=== PATIENT | male | born 1975 | race Caucasian/White ===

== ENCOUNTER 2019-08-29 18:07 | Inpatient (IN) | payer OTHER ==
[~2019-08-29] VITALS: Ht 157.5 cm; Wt 162.3 kg
[~2019-08-29 18:07] MED LIST: AMLO5 PO; DOXY100 PO; Gummi Bear Mul1 EACH PO; LEVSOD150 PO; Omega 3 Fish O1 EACH PO
[2019-08-29] MEDS ORDERED: Clobetasol Prop50 ML (18:31)
[2019-08-29] MEDS ORDERED: METR59TL (18:31)
[2019-08-29] MEDS ORDERED: KRILL OIL500 MG (18:32)
[2019-08-29] MEDS ORDERED: Aspirin EC81 MG PO (18:32)
[2019-08-29] MEDS ORDERED: ATORVASTATIN CA20 MG PO (18:33)
[2019-08-29] MEDS ORDERED: Bisoprolol Fumar5 MG PO (18:34)
[2019-08-29] MEDS ORDERED: Spironolactone100 MG PO (18:34)
[2019-08-29] MEDS ORDERED: TORSE20 PO (18:35)
[2019-08-29 19:41] LABS: BASOPHILS ABSOLUTE AUTO 0.09 K/mm3 (0.00-0.23); BASOPHILS PERCENT AUTO 1 % (0-2); EOSINOPHILS ABSOLUTE AUTO 0.13 K/mm3 (0.00-0.68); EOSINOPHILS PERCENT AUTO 1 % (0-6); Hematocrit 51.3 % (37.0-53.0); Hemoglobin 16.6 g/dL (13.5-17.5); IMMATURE GRAN ABSOLUTE AUTO 0.06 K/mm3 (0.00-0.10); IMMATURE GRAN PERCENT AUTO 1 % (0-1); LYMPHOCYTES ABSOLUTE AUTO 3.67 K/mm3 (0.84-5.20); LYMPHOCYTES PERCENT AUTO 36 % (21-46); MONOCYTES ABSOLUTE AUTO 0.88 K/mm3 (0.16-1.47); MONOCYTES PERCENT AUTO 9 % (4-13); Mean Corpuscular HGB 30.9 pg (26.0-34.0); Mean Corpuscular HGB Conc 32.4 g/dL (31.5-36.5); Mean Corpuscular Volume 95 fL (80-100); Mean Platelet Volume 9.2 fL (9.1-12.4); NEUTROPHILS PERCENT AUTO 53 % (41-73); Platelet Count 387 K/mm3 (150-400); RDW Coefficient Variation 15.4 % (11.7-14.2); RDW Standard Deviation 54.8 fL (35.1-46.3); Red Blood Cell Count 5.38 M/mm3 (4.30-5.90); White Blood Cell Count 10.33 K/mm3 (4.00-11.30)
[2019-08-29 20:10] LABS: Alanine Aminotransfer (ALT/SGP 35 U/L (12-78); Albumin, Blood 2.8 g/dL (3.4-5.0); Albumin/Globulin Ratio 0.6 (0.8-1.8); Alk Phos 91 U/L (50-136); Anion Gap 0 mmol/L (6-16); Aspartate Aminotrans (AST/SGOT 41 U/L (12-37); Bilirubin, Total 0.4 mg/dL (0.1-1.0); Blood Urea Nitrogen 23 mg/dL (8-24); Bun/Creatinine Ratio 16.2 (12.0-20.0); CO2, Blood 35 mmol/L (21-32); Calcium, Blood 8.7 mg/dL (8.5-10.1); Chloride, Blood 104 mmol/L (98-108); Creatinine, Blood 1.42 mg/dL (0.60-1.20); Globulin, Blood 4.9 g/dL (2.2-4.0); Glomerular Filtration Rate 58 (60-); Glucose, Blood 107 mg/dL (70-99); Magnesium, Blood 2.2 mg/dL (1.6-2.4); Potassium, Blood 4.6 mmol/L (3.5-5.5); Sodium, Blood 139 mmol/L (136-145); Total Protein, Blood 7.7 g/dL (6.4-8.2); Troponin I <0.015 ng/mL (0.000-0.040)
[2019-08-29] MEDS ORDERED: AMLODIPINE BESYL5 MG PO (20:33)
[2019-08-29] MEDS ORDERED: METRONIDAZOLE60 GM TOP (20:37)
[2019-08-29] MEDS ORDERED: Clobetasol Prop50 ML TOP (20:37)
[2019-08-30 00:40] LABS: Adenovirus Not Detected (NOT DETECT); Bordetella pertussis Not Detected (NOT DETECT); Chlamydophila pneumoniae Not Detected (NOT DETECT); Coronavirus 229E Not Detected (NOT DETECT); Coronavirus HKU1 Not Detected (NOT DETECT); Coronavirus NL63 Not Detected (NOT DETECT); Coronavirus OC43 Not Detected (NOT DETECT); Human Metapneumovirus Not Detected (NOT DETECT); Human Rhinovirus/Enterovirus Not Detected (NOT DETECT); Influenza A/2009-H1 Not Detected (NOT DETECT); Influenza A/H1 Not Detected (NOT DETECT); Influenza A/H3 Not Detected (NOT DETECT); Influenza B Not Detected (NOT DETECT); Mycoplasma pneumoniae Not Detected (NOT DETECT); Parainfluenza Virus 1 Not Detected (NOT DETECT); Parainfluenza Virus 2 Not Detected (NOT DETECT); Parainfluenza Virus 3 Not Detected (NOT DETECT); Parainfluenza Virus 4 Not Detected (NOT DETECT); Respiratory Syncytial Virus Not Detected (NOT DETECT)
[2019-08-30 04:43] LABS: Hematocrit 51.7 % (37.0-53.0); Hemoglobin 16.9 g/dL (13.5-17.5); Mean Corpuscular HGB 30.9 pg (26.0-34.0); Mean Corpuscular HGB Conc 32.7 g/dL (31.5-36.5); Mean Corpuscular Volume 95 fL (80-100); Mean Platelet Volume 9.3 fL (9.1-12.4); Platelet Count 360 K/mm3 (150-400); RDW Coefficient Variation 15.2 % (11.7-14.2); RDW Standard Deviation 53.3 fL (35.1-46.3); Red Blood Cell Count 5.47 M/mm3 (4.30-5.90); White Blood Cell Count 10.35 K/mm3 (4.00-11.30)
[2019-08-30 05:07] LABS: Albumin, Blood 2.9 g/dL (3.4-5.0); Albumin/Globulin Ratio 0.6 (0.8-1.8); Bilirubin, Total 0.5 mg/dL (0.1-1.0); Bun/Creatinine Ratio 16.5 (12.0-20.0); Calcium, Blood 8.9 mg/dL (8.5-10.1); Creatinine, Blood 1.39 mg/dL (0.60-1.20); Globulin, Blood 5.1 g/dL (2.2-4.0); Potassium, Blood 4.9 mmol/L (3.5-5.5)
--- NOTE | 2019-08-30 06:04 | NUR ---
SHIFT SUMMARY PT ALERT; ARRIVED VIA STRETCHER FROM ER; TRANSFERED SELF TO BED; MOTHER AT BEDSIDE; COPY OF HOME MEDS IN CHART; MOTHER ABLE TO ANSWER ADMIT HX; PT IS DIFFICULT TO UNDERSTAND AT TIMES; PT AMBULATES TO BATHROOM W/ SBA; NO GAIT DISTURBANCES NOTED; O2 SATS >93 ON 2L NC; MOTHER STATES 2L IS BASELINE FOR PT; HOME CPAP USED FOR SLEEPING; RT ADDED 3L BLEED IN; DESATING NOTED WHEN PT IS SOUND ASLEEP; CALL LIGHT IN REACH; BED IN LOWEST POSITION; WILL MONITOR CLOSELY UNTIL HAND OFF TO DAY SHIFT RN.
--- NOTE | 2019-08-30 17:08 | NUR ---
SHIFT SUMMARY PT AWAKE THIS AM DURING SHIFT REPORT, LYING HF. PT'S MOM STAYING AT BS D/T PT BEING DOWN SYNDROME. PT IS ALERT AND VERY PLEASANT AND CO-OP. HX OF CHF WITH MORBID OBESITY, ADMITTED FOR RESP FAILURE. LUNGS T/O VERY DIMINISHED; DIFFICULT TO ACCURATELY ASSESS D/T OBESITY. BIOX HAS REMAINED WNL'S ON 2L NC TODAY, IMPROVING SLIGHTLY THRU OUT THE DAY. OCCASSIONAL NPC. TESSALON GIVEN PER EMAR FOR COUGH. PT VOIDING WELL; MOM ASSISTS PT UP TO BTHRM WITH SBA. TODAY IS PT'S BIRTHDAY; HAVING LOTS OF VISITORS. NO C/O. DENIED FURTHER NEEDS. CALL LT IN REACH.
[2019-08-31 04:59] LABS: BASOPHILS ABSOLUTE AUTO 0.01 K/mm3 (0.00-0.23); BASOPHILS PERCENT AUTO 0 % (0-2); EOSINOPHILS PERCENT AUTO 0 % (0-6); Hematocrit 48.3 % (37.0-53.0); Hemoglobin 16.1 g/dL (13.5-17.5); IMMATURE GRAN ABSOLUTE AUTO 0.09 K/mm3 (0.00-0.10); IMMATURE GRAN PERCENT AUTO 1 % (0-1); LYMPHOCYTES ABSOLUTE AUTO 2.05 K/mm3 (0.84-5.20); LYMPHOCYTES PERCENT AUTO 13 % (21-46); MONOCYTES ABSOLUTE AUTO 0.31 K/mm3 (0.16-1.47); MONOCYTES PERCENT AUTO 2 % (4-13); Mean Corpuscular HGB 31.1 pg (26.0-34.0); Mean Corpuscular HGB Conc 33.3 g/dL (31.5-36.5); Mean Corpuscular Volume 93 fL (80-100); Mean Platelet Volume 8.9 fL (9.1-12.4); NEUTROPHILS ABSOLUTE AUTO 13.66 K/mm3 (1.96-9.15); NEUTROPHILS PERCENT AUTO 85 % (41-73); Platelet Count 379 K/mm3 (150-400); RDW Coefficient Variation 14.7 % (11.7-14.2); RDW Standard Deviation 51.3 fL (35.1-46.3); Red Blood Cell Count 5.17 M/mm3 (4.30-5.90); White Blood Cell Count 16.12 K/mm3 (4.00-11.30)
[2019-08-31 05:16] LABS: Alanine Aminotransfer (ALT/SGP 30 U/L (12-78); Albumin, Blood 2.6 g/dL (3.4-5.0); Albumin/Globulin Ratio 0.5 (0.8-1.8); Alk Phos 69 U/L (50-136); Anion Gap 4 mmol/L (6-16); Aspartate Aminotrans (AST/SGOT 22 U/L (12-37); Bilirubin, Total 0.4 mg/dL (0.1-1.0); Blood Urea Nitrogen 28 mg/dL (8-24); Bun/Creatinine Ratio 23.7 (12.0-20.0); CO2, Blood 30 mmol/L (21-32); Calcium, Blood 8.8 mg/dL (8.5-10.1); Chloride, Blood 102 mmol/L (98-108); Creatinine, Blood 1.18 mg/dL (0.60-1.20); Globulin, Blood 4.9 g/dL (2.2-4.0); Glomerular Filtration Rate >60 (60-); Glucose, Blood 170 mg/dL (70-99); Magnesium, Blood 2.4 mg/dL (1.6-2.4); Potassium, Blood 4.6 mmol/L (3.5-5.5); Sodium, Blood 136 mmol/L (136-145); Total Protein, Blood 7.5 g/dL (6.4-8.2)
--- NOTE | 2019-08-31 06:54 | NUR ---
SHIFT SUMMARY PT A&O; PLEASANT AND COMPLIANT W/ CARE; MOTHER AT BEDSIDE; VSS; O2 SATS >90 ON 2L NC; LUNG SOUNDS DIM T/O; OCCASSIONAL COUGH NOTED; PT USED HOME CPAP FOR MAJORITY OF THE NIGHT AND SLEPT SEVERAL HOURS; SBA FOR BATHROOM PRIVILEGES; NO OUTPUT NOTED FOR NIGHT; WT GAIN NOTED THIS AM; DENIES NEEDS AT THIS TIME; CALL LIGHT IN REACH; BED IN LOWEST POSITION; WILL CONTINUE TO MONITOR UNTIL HAND OFF TO DAY SHIFT RN.
--- NOTE | 2019-08-31 19:49 | NUR ---
SHIFT SUMMARY: PT TRANSITION TO MEDICAL STATUS WITH NO TELE, PT COMPLIANT WITH CPAP ON 3L SATS ABOVE 88-90% PT NOT IN RESPI DISTRESS. PT REQUIRING CUES AND SIGNS FOR COMMUNICATION. BP SYSTOLIC 90'S-100'S METOPROLOL HELD THIS AM, BP HAS BEEN STABLE DR ZAIDI IS AWARE. ONE TIME EXTRA DOSE OF LASIX ADMINISTERED, PT WITH DECENT AMOUNT OF URINE OUTPUT. MOTHER AT BEDSIDE MOST OF THE SHIFT. PT HAS BEEN AMBULATING TO THE BATHROOM. LUNGS WITH BILAT EXP WHEEZES BREATHING TX PER RT ADMINISTERED, OCCASIONAL NON PRODUCTIVE COUGH. PT RESTING IN BED CALL LIGHTS WITHIN REACH TO REPORT TO ONCOMING SHIFT.
[2019-09-01 05:03] LABS: BASOPHILS ABSOLUTE AUTO 0.02 K/mm3 (0.00-0.23); BASOPHILS PERCENT AUTO 0 % (0-2); EOSINOPHILS PERCENT AUTO 0 % (0-6); Hematocrit 48.1 % (37.0-53.0); Hemoglobin 15.7 g/dL (13.5-17.5); IMMATURE GRAN ABSOLUTE AUTO 0.07 K/mm3 (0.00-0.10); IMMATURE GRAN PERCENT AUTO 1 % (0-1); LYMPHOCYTES PERCENT AUTO 10 % (21-46); MONOCYTES ABSOLUTE AUTO 0.51 K/mm3 (0.16-1.47); MONOCYTES PERCENT AUTO 3 % (4-13); Mean Corpuscular HGB 30.5 pg (26.0-34.0); Mean Corpuscular HGB Conc 32.6 g/dL (31.5-36.5); Mean Corpuscular Volume 94 fL (80-100); Mean Platelet Volume 8.6 fL (9.1-12.4); NEUTROPHILS ABSOLUTE AUTO 12.93 K/mm3 (1.96-9.15); NEUTROPHILS PERCENT AUTO 86 % (41-73); Platelet Count 373 K/mm3 (150-400); RDW Coefficient Variation 14.6 % (11.7-14.2); RDW Standard Deviation 50.7 fL (35.1-46.3); Red Blood Cell Count 5.14 M/mm3 (4.30-5.90); White Blood Cell Count 15.03 K/mm3 (4.00-11.30)
[2019-09-01 05:23] LABS: Alanine Aminotransfer (ALT/SGP 24 U/L (12-78); Albumin, Blood 2.8 g/dL (3.4-5.0); Albumin/Globulin Ratio 0.6 (0.8-1.8); Alk Phos 67 U/L (50-136); Anion Gap 3 mmol/L (6-16); Aspartate Aminotrans (AST/SGOT 18 U/L (12-37); Bilirubin, Total 0.6 mg/dL (0.1-1.0); Blood Urea Nitrogen 29 mg/dL (8-24); Bun/Creatinine Ratio 27.6 (12.0-20.0); CO2, Blood 31 mmol/L (21-32); Calcium, Blood 8.5 mg/dL (8.5-10.1); Chloride, Blood 102 mmol/L (98-108); Creatinine, Blood 1.05 mg/dL (0.60-1.20); Globulin, Blood 4.4 g/dL (2.2-4.0); Glomerular Filtration Rate >60 (60-); Glucose, Blood 149 mg/dL (70-99); Potassium, Blood 4.7 mmol/L (3.5-5.5); Sodium, Blood 136 mmol/L (136-145); Total Protein, Blood 7.2 g/dL (6.4-8.2)
--- NOTE | 2019-09-01 07:15 | NUR ---
SHIFT SUMMARY PT A&O; MOTHER AT BEDSIDE REMAINDER OF SHIFT; 2100 DOSE OF METOPROLOL HELD DUE TO DECREASED B.P.; VSS; O2 SATS >90 ON 2L NC; PT HAD SHOWER; POWERGLIDE PLACED BY AVIATION ELECTRONICS TECHNICIAN; FLUSHING & DRAWING APPROPRIATELY; MEDS GIVEN WHOLE IN APPLESAUCE; COMMUNICATES WELL W/ GESTURES AND SHORT WORDS; MOTHER HELPS W/ COMMUNICATION W/ STAFF; MOTHER ASSISTS PT TO BATRHOOM 1X IN NIGHT; DENIES NEEDS AT THIS TIME; CALL LIGHT IN REACH; BED IN LOWEST POSITION; REPORT GIVEN TO DAY SHIFT RN.
--- NOTE | 2019-09-01 19:05 | NUR ---
ASSUMED CARE RECEIVED REPORT FROM JAMIE CAMARILLO. ASSUMED CARE OF PT. RESTING COMFORTABLY IN NO ACUTE DISTRESS. O2 SATS STABLE AT 88-90% 2L/NC. MOTHER AT THE BEDSIDE. PT AND MOTHER DENY ANY NEEDS AT THIS TIME. CALL LIGHT AND POSSESSIONS IN REACH, WILL CONTINUE TO MONITOR.
--- NOTE | 2019-09-01 19:49 | NUR ---
SHIFT SUMMARY: PT REMAINED MEDICAL STATUS WITH, CURRENTLY DIURESING WITH IV LASIX AND ALBUMIN. PT HAD MORE THAN 3000ML URINE OUTPUT FOR TODAY. BP SYSOLIC REMAINED 90'S-110'S BP MEDS HELD FOR TODAY. PT STILL ON 3L OF O2 VIA NC/CPAP SATS ABOVE 88% NO SIGNS OF RESPI DISTRESS. PT WORKED WITH PT/OT WITH NO ISSUES AND HAS BEEN AMBULATING TO THE BATHROOM 1PA SBA. PT CONTINUES ON IV AZITHROMYCIN. POWERGLIDE INTACT ON LUE, PT RESTING IN BED CALL LIGHTS WITHIN REACH, REPORT GIVEN TO ONCOMING SHIFT.
[2019-09-02 05:00] LABS: BASOPHILS ABSOLUTE AUTO 0.02 K/mm3 (0.00-0.23); BASOPHILS PERCENT AUTO 0 % (0-2); EOSINOPHILS PERCENT AUTO 0 % (0-6); Hematocrit 48.3 % (37.0-53.0); IMMATURE GRAN ABSOLUTE AUTO 0.07 K/mm3 (0.00-0.10); IMMATURE GRAN PERCENT AUTO 1 % (0-1); LYMPHOCYTES ABSOLUTE AUTO 2.17 K/mm3 (0.84-5.20); LYMPHOCYTES PERCENT AUTO 17 % (21-46); MONOCYTES ABSOLUTE AUTO 0.85 K/mm3 (0.16-1.47); MONOCYTES PERCENT AUTO 7 % (4-13); Mean Corpuscular HGB 31.1 pg (26.0-34.0); Mean Corpuscular HGB Conc 33.1 g/dL (31.5-36.5); Mean Corpuscular Volume 94 fL (80-100); Mean Platelet Volume 8.8 fL (9.1-12.4); NEUTROPHILS ABSOLUTE AUTO 9.34 K/mm3 (1.96-9.15); NEUTROPHILS PERCENT AUTO 75 % (41-73); Platelet Count 391 K/mm3 (150-400); RDW Coefficient Variation 14.6 % (11.7-14.2); Red Blood Cell Count 5.14 M/mm3 (4.30-5.90); White Blood Cell Count 12.45 K/mm3 (4.00-11.30)
--- NOTE | 2019-09-02 05:31 | NUR ---
SHIFT SUMMARY PT RESTING COMFORTABLY, NO S/S ACUTE DISTRESS NOTED. SLEPT T/O NIGHT, NO ACUTE EVENTS NOTED. 02 SATS BETWEEN 88-90% ON CPAP C O2 BLEED-IN. BP TRENDING LOW 90S-100S SYSTOLIC, PT ASYMPTOMATIC. TOLERATED CARES WELL. MOTHER REMAINS AT THE BEDSIDE. PT AND FAMILY DENY ANY NEEDS AT THIS TIME, CALL LIGHT AND POSSESSIONS IN REACH, BED IN LOW POSITION, WILL CONTINUE TO MONITOR UNTIL REPORT GIVEN TO ONCOMING RN.
[2019-09-02 05:38] LABS: Alanine Aminotransfer (ALT/SGP 39 U/L (12-78); Albumin/Globulin Ratio 0.7 (0.8-1.8); Alk Phos 58 U/L (50-136); Anion Gap 2 mmol/L (6-16); Aspartate Aminotrans (AST/SGOT 19 U/L (12-37); Bilirubin, Total 0.6 mg/dL (0.1-1.0); Blood Urea Nitrogen 31 mg/dL (8-24); Bun/Creatinine Ratio 29.2 (12.0-20.0); CO2, Blood 34 mmol/L (21-32); Calcium, Blood 8.7 mg/dL (8.5-10.1); Chloride, Blood 100 mmol/L (98-108); Creatinine, Blood 1.06 mg/dL (0.60-1.20); Globulin, Blood 4.1 g/dL (2.2-4.0); Glomerular Filtration Rate >60 (60-); Glucose, Blood 122 mg/dL (70-99); Potassium, Blood 4.4 mmol/L (3.5-5.5); Sodium, Blood 136 mmol/L (136-145); Total Protein, Blood 7.1 g/dL (6.4-8.2)
[2019-09-02] MEDS ORDERED: METO25 PO (11:02)
[2019-09-02] MEDS ORDERED: FURO40 PO (11:03)
[2019-09-02] MEDS ORDERED: ALBU3IS INH (11:04)
[2019-09-02] MEDS ORDERED: AZIT500 PO (11:05)
[2019-09-02] MEDS ORDERED: BUDE.25 NEB (11:06)
[2019-09-02] MEDS ORDERED: Tessalon200 MG PO (11:06)
[2019-09-02] MEDS ORDERED: GUAI600T33 PO (11:07)
[2019-09-02] MEDS ORDERED: Prednisone10 MG PO (11:12)
--- NOTE | 2019-09-02 13:58 | NUR ---
PT DISCHARGED TO HOME TODAY, HOME O2 EVAL DONE PT REQUIRING 4L O2 WITH ACTIVITIES, PRESCRIPTION FOR NEB AND O2 TX SENT TO [facility]. DISCLOSED DISCHARGE INSTRUCTION TO MOTHER, WITH SIGNED DISCHARGE CONSENT, PT ACCOMPANIED TO TRANSPORT VIA WHEELCHAIR.
== END 2019-09-02 12:28 | disposition home or self-care (01) | DRG 291 ==
LOC: ER 18:07 → PCU 21:51
PROVIDERS: Emergency Medicine; Internal Medicine; ADMIT Internal Medicine
DX: I11.0 Hypertensive heart disease with heart failure (principal); J96.21 Acute and chronic respiratory failure with hypoxia; N17.9 Acute kidney failure, unspecified; Z68.44 Body mass index [BMI] 60.0-69.9, adult; I50.33 Acute on chronic diastolic (congestive) heart failure; J20.9 Acute bronchitis, unspecified; E66.01 Morbid (severe) obesity due to excess calories; G47.33 Obstructive sleep apnea (adult) (pediatric); E03.9 Hypothyroidism, unspecified; E78.5 Hyperlipidemia, unspecified; I25.10 Atherosclerotic heart disease of native coronary artery without angina pectoris; R73.9 Hyperglycemia, unspecified; Q90.9 Down syndrome, unspecified; Z99.81 Dependence on supplemental oxygen; Z79.82 Long term (current) use of aspirin
CPT/HCPCS: 0099U; 36415; 71045; 80053; 83036; 83735; 83880; 84484; 85025; 85027; 93005; 93010; 94640; 94761; 94762; 96374; 96375; 97162; 97165; 97535; 99285-25; C1751; J0456; J1650; J1940; J2920; J2930; J7050; J7512; P9046

== ENCOUNTER 2021-09-14 10:05 | Inpatient (IN) | payer OTHER ==
[~2021-09-14] VITALS: Ht 152.4 cm; Wt 177.5 kg
[~2021-09-14 10:05] MED LIST changes: +ALBU3IS INH; +AMLODIPINE BESYL5 MG PO; +ATORVASTATIN CA20 MG PO; +AZIT500 PO; +Aspirin EC81 MG PO; +BUDE.25 NEB; +Bisoprolol Fumar5 MG PO; +Clobetasol Prop50 ML; +Clobetasol Prop50 ML TOP; +FURO40 PO; +GUAI600T33 PO; +KRILL OIL500 MG; +METO25 PO; +METR59TL; +METRONIDAZOLE60 GM TOP; +Prednisone10 MG PO; +Spironolactone100 MG PO; +TORSE20 PO; +Tessalon200 MG PO
[2021-09-14] MEDS ORDERED: KRILL OIL500 MG PO (10:28)
[2021-09-14] MEDS ORDERED: TORSE20 PO (10:29)
[2021-09-14] MEDS ORDERED: ALBU2.5V5 (10:30)
[2021-09-14] MEDS ORDERED: BUDESONIDE0.5 MG/25 (10:30)
[2021-09-14 10:42] LABS: PCO2 Arterial 59.7 mmHg (35-45); PO2 Arterial 48.6 mmHg (80-100); pH Blood Arterial 7.31 (7.35-7.45)
[2021-09-14 10:45] LABS: BASOPHILS ABSOLUTE AUTO 0.11 K/mm3 (0.00-0.23); BASOPHILS PERCENT AUTO 1 % (0-2); EOSINOPHILS PERCENT AUTO 0 % (0-6); Hematocrit 49.8 % (37.0-53.0); Hemoglobin 15.5 g/dL (13.5-17.5); IMMATURE GRAN ABSOLUTE AUTO 0.16 K/mm3 (0.00-0.10); IMMATURE GRAN PERCENT AUTO 1 % (0-1); LYMPHOCYTES ABSOLUTE AUTO 1.87 K/mm3 (0.84-5.20); LYMPHOCYTES PERCENT AUTO 13 % (21-46); MONOCYTES PERCENT AUTO 5 % (4-13); Mean Corpuscular HGB 29.4 pg (26.0-34.0); Mean Corpuscular HGB Conc 31.1 g/dL (31.5-36.5); Mean Corpuscular Volume 95 fL (80-100); Mean Platelet Volume 9.3 fL (9.1-12.4); NEUTROPHILS PERCENT AUTO 80 % (41-73); NRBC ABSOLUTE 0.04 K/mm3 (0.00-0.02); NRBC Auto 0.3 /100 WBC (0.0-0.2); Platelet Count 324 K/mm3 (150-400); RDW Coefficient Variation 17.2 % (11.7-14.2); RDW Standard Deviation 60.6 fL (35.1-46.3); Red Blood Cell Count 5.27 M/mm3 (4.30-5.90); White Blood Cell Count 14.24 K/mm3 (4.00-11.30)
[2021-09-14 11:14] LABS: Influenza A, PCR NEGATIVE (NEGATIVE); Influenza B, PCR NEGATIVE (NEGATIVE); Resp Syncytial Virus, PCR NEGATIVE (NEGATIVE)
[2021-09-14 11:18] LABS: SARS-Cov-2 (COVID-19) PCR, MMC POSITIVE (NEGATIVE)
[2021-09-14 11:22] LABS: Alanine Aminotransfer (ALT/SGP 73 U/L (12-78); Albumin, Blood 2.4 g/dL (3.4-5.0); Albumin/Globulin Ratio 0.4 (0.8-1.8); Alk Phos 143 U/L (50-136); Anion Gap 12 mmol/L (6-16); Aspartate Aminotrans (AST/SGOT 62 U/L (12-37); Bilirubin, Total 0.9 mg/dL (0.1-1.0); Blood Urea Nitrogen 14 mg/dL (8-24); Bun/Creatinine Ratio 10.9 (12.0-20.0); CO2, Blood 26 mmol/L (21-32); Calcium, Blood 8.2 mg/dL (8.5-10.1); Chloride, Blood 97 mmol/L (98-108); Creatinine, Blood 1.29 mg/dL (0.60-1.20); Globulin, Blood 5.5 g/dL (2.2-4.0); Glomerular Filtration Rate >60 (60-); Glucose, Blood 223 mg/dL (70-99); Potassium, Blood 4.4 mmol/L (3.5-5.5); Sodium, Blood 135 mmol/L (136-145); Total Protein, Blood 7.9 g/dL (6.4-8.2)
--- NOTE | 2021-09-14 14:45 | NUR ---
RECEIVED PT FROM ER VIA GURNEY. PT INTUBATED, SEDATED, AND MECHANICALLY VENTILATED. SATS 82% ON PEEP 10 AND FIO2 100%- AT BEDSIDE TO EVALUATE PT.VENT: AC/VC 22, TV 350, PEEP INCREASED TO 20, FIO2 100%-SATS TO 90'S. LUNGS DIMINISHED AND TIGHT THROUGH OUT-SLIGHLTY COARSE TO UPPER LOBES. OGT PLACED TO LIS. PT REACHING FOR ETT AND OGT-SOFT WRIST RESTRAINTS IN PLACE AND PROPOFOL DRIP @ 25 MCG/KG/MIN.ECG SHOWS SR RATE 80'S. SBP TRENDING 90'S AND MAP 70. LEVOPHED IS ORDERED IF MAP<60. PT PLACED ON BARRIATRIC BED. SKIN OVERALL INTACT. SOME PATCHES OF DRY, FLAKY SKIN NOTED.ROCHA LEAKS PANUS IS VERY LARGE AND SITS ON THE URETHRA. ROB RN AT BEDSIDE TO PLACE PICC LINE.
--- NOTE | 2021-09-14 16:00 | NUR ---
ORAL CARE DONE-TOLERATED WELL. SKIN TO PT BACK AND BUTTOCKS C/D/I. NO NOTED SKIN BREAKDOWN. PT POSITIONED TO LEFT SIDE FOR ECHO.
[2021-09-14 16:06] LABS: Anti-Xa UFH, PHA Monitoring <0.10 IU/mL; International Normalized Ratio 1.08; Prothrombin Time Results 11.3 Sec (9.7-11.5)
--- NOTE | 2021-09-14 16:45 | NUR ---
ECHO IN PROGRESS. PT MOTHER UPDATE TO PT STATUS. PT FAMILY IN FOR BRIEF VISIT.
--- NOTE | 2021-09-14 17:30 | NUR ---
HEPARIN DRIP INITIATED @ 18 UNITS/KG/HR AFTER HEPARIN 8000 UNIT BOLUS GIVEN. PT MOTHER AT BEDSIDE.
--- NOTE | 2021-09-14 18:52 | NUR ---
PT RESTING QUIETLY ON VENT WITH PROPOFOL @ 35 MCG/KG/MIN. SATS> 90% ON FIO2 100%. MAP TRENDING 70'S WITH LEVOPHED @ 5 MCG/MIN. HEPARIN DRIP INFUSING ! 18 UNITS/KG/HR. NO ACUTE DISTRESS NOTED AT THIS TIME. WILL REPORT TO ONCOMING SHIFT.
--- NOTE | 2021-09-14 20:00 | NUR ---
ASSUMED CARE OF PT AT 1915. REPORT RECEIVED. PT PRESENTS IN BED. INTUBATED - AC 22, Tv 350, PEEP 20, AND FIO2 100 PERCENT. PROPOFOL FOR SEDATION AT 35 MCG'S/KG/MIN. LEVOPHED AT 5 MCG'S/MIN OXYGEN SATURATIONS REMAINS 90-93 PERCENT. AND BLOOD PRESSURES REMAIN WITH MAP > 65. PT N NO APPARENT DISTRESS. WILL REVIEW CHART AND PLAN OF CARE FOR THIS PT.
--- NOTE | 2021-09-15 00:31 | NUR ---
FULL BEDBATH DONE FOR PT. OF NOTE: SPUTUM SAMPLE SENT TO LAB FOR PROCESSING. PT CONTINUES ON HEPARIN DRIP AND HAVE NOTED SECRETIONS FROM ETT RUST COLOR. PT DESATURATED QUICKLY WHEN HE WAS FLAT DURING TURNS. CURRENTLY 92-94 PERCENT SATURATED WITH FIO2 AT 100 PERCENT. HAVE DECREASED LEVOPHED TO 3 MCG'S PER MINUTE.
[2021-09-15 04:07] LABS: PCO2 Arterial 49.4 mmHg (35-45); PO2 Arterial 94.2 mmHg (80-100); pH Blood Arterial 7.42 (7.35-7.45)
--- NOTE | 2021-09-15 05:52 | NUR ---
SEDATION VACATION DONE THIS MORNING. PT BECOMES VERY ANXIOUS, BUT IS ABLE TO GIVE A "THUMBS UP" WHEN ASKED IF HE WAS DOING OK. PT DID NOT BODY COMPONENT ENGINEER, BUT DID OPEN EYES TO COMMAND. PT CURRENTLY BACK TO SEDATION AT 35 MCG'S PROPOFOL/KG/MIN. LEVOPHED REMAINS AT 4 MCG'S/MIN TO MAINTAIN MAP > 65. HAVE TITRATED TO 3 MCG'S AND BLOOD PRESSURES TRENDED LOWER. PT HAS TOLERATED TURNS Q 2 HOURS. DID GET HIS AM CHEST XRAY DONE. CONTINUES ON HEPAIN WITHOUT S/S BLEEDING. WILL CONTINUE TO MONITOR PT, AND WILL REPORT OFF TO ONCOMING RN.
[2021-09-15 05:58] LABS: Albumin, Blood 1.9 g/dL (3.4-5.0); Albumin/Globulin Ratio 0.4 (0.8-1.8); Bilirubin, Total 1.1 mg/dL (0.1-1.0); Bun/Creatinine Ratio 16.3 (12.0-20.0); Calcium, Blood 8.2 mg/dL (8.5-10.1); Creatinine, Blood 1.35 mg/dL (0.60-1.20); Globulin, Blood 4.8 g/dL (2.2-4.0); Potassium, Blood 4.5 mmol/L (3.5-5.5); Total Protein, Blood 6.7 g/dL (6.4-8.2)
--- NOTE | 2021-09-15 07:00 | NUR ---
ASSUME CARE: I have assumed care of pt at this time.
[2021-09-15 09:37] LABS: BASOPHILS ABSOLUTE AUTO 0.04 K/mm3 (0.00-0.23); BASOPHILS PERCENT AUTO 0 % (0-2); EOSINOPHILS PERCENT AUTO 0 % (0-6); Hematocrit 44.4 % (37.0-53.0); IMMATURE GRAN PERCENT AUTO 1 % (0-1); LYMPHOCYTES ABSOLUTE AUTO 1.05 K/mm3 (0.84-5.20); LYMPHOCYTES PERCENT AUTO 9 % (21-46); MONOCYTES ABSOLUTE AUTO 0.75 K/mm3 (0.16-1.47); MONOCYTES PERCENT AUTO 6 % (4-13); Mean Corpuscular HGB 29.4 pg (26.0-34.0); Mean Corpuscular HGB Conc 31.5 g/dL (31.5-36.5); Mean Corpuscular Volume 93 fL (80-100); Mean Platelet Volume 12.3 fL (9.1-12.4); NEUTROPHILS PERCENT AUTO 83 % (41-73); NRBC Auto 0.9 /100 WBC (0.0-0.2); Platelet Count 308 K/mm3 (150-400); RDW Coefficient Variation 16.7 % (11.7-14.2); Red Blood Cell Count 4.76 M/mm3 (4.30-5.90); White Blood Cell Count 11.64 K/mm3 (4.00-11.30)
--- NOTE | 2021-09-15 18:57 | NUR ---
SHIFT SUMMARY: Pt on 35 mg/kg/min of propofol, 18 u/kg/min of heparin, and 3mcg/kg/min of norepinephrine. Vent settings AC/VC 22/350/20/65%. Sputum from in-line suction blood streaked. Pt turned with lift q 2 with several pillows to prevent any breakdown. UOP 1350; Intake 1669. No bowel movement. Vital high protein tube feed started at goal rate of 25 with 30ml free water flushes q4 hrs. Mother has been at bedside throughout the day.
[2021-09-16 03:19] LABS: BASOPHILS ABSOLUTE AUTO 0.01 K/mm3 (0.00-0.23); BASOPHILS PERCENT AUTO 0 % (0-2); EOSINOPHILS PERCENT AUTO 0 % (0-6); Hematocrit 42.2 % (37.0-53.0); Hemoglobin 13.5 g/dL (13.5-17.5); IMMATURE GRAN ABSOLUTE AUTO 0.09 K/mm3 (0.00-0.10); IMMATURE GRAN PERCENT AUTO 1 % (0-1); LYMPHOCYTES ABSOLUTE AUTO 0.92 K/mm3 (0.84-5.20); LYMPHOCYTES PERCENT AUTO 9 % (21-46); MONOCYTES ABSOLUTE AUTO 0.69 K/mm3 (0.16-1.47); MONOCYTES PERCENT AUTO 7 % (4-13); Mean Corpuscular HGB 28.8 pg (26.0-34.0); Mean Corpuscular Volume 90 fL (80-100); Mean Platelet Volume 9.8 fL (9.1-12.4); NEUTROPHILS ABSOLUTE AUTO 8.26 K/mm3 (1.96-9.15); NEUTROPHILS PERCENT AUTO 83 % (41-73); NRBC ABSOLUTE 0.11 K/mm3 (0.00-0.02); NRBC Auto 1.1 /100 WBC (0.0-0.2); Platelet Count 307 K/mm3 (150-400); RDW Coefficient Variation 16.6 % (11.7-14.2); RDW Standard Deviation 55.3 fL (35.1-46.3); Red Blood Cell Count 4.68 M/mm3 (4.30-5.90); White Blood Cell Count 9.97 K/mm3 (4.00-11.30)
[2021-09-16 03:34] LABS: Alanine Aminotransfer (ALT/SGP 62 U/L (12-78); Albumin, Blood 1.8 g/dL (3.4-5.0); Albumin/Globulin Ratio 0.4 (0.8-1.8); Alk Phos 89 U/L (50-136); Anion Gap 4 mmol/L (6-16); Aspartate Aminotrans (AST/SGOT 42 U/L (12-37); Bilirubin, Total 0.5 mg/dL (0.1-1.0); Blood Urea Nitrogen 26 mg/dL (8-24); Bun/Creatinine Ratio 23.2 (12.0-20.0); CO2, Blood 32 mmol/L (21-32); Calcium, Blood 8.3 mg/dL (8.5-10.1); Chloride, Blood 101 mmol/L (98-108); Creatinine, Blood 1.12 mg/dL (0.60-1.20); Globulin, Blood 4.8 g/dL (2.2-4.0); Glomerular Filtration Rate >60 (60-); Glucose, Blood 196 mg/dL (70-99); Magnesium, Blood 2.2 mg/dL (1.6-2.4); Phosphorus, Blood 2.6 mg/dL (2.5-4.9); Potassium, Blood 4.2 mmol/L (3.5-5.5); Sodium, Blood 137 mmol/L (136-145); Total Protein, Blood 6.6 g/dL (6.4-8.2)
--- NOTE | 2021-09-16 06:34 | NUR ---
Patient remained stable through the night. Sedated on propofol, localizes to pain, opens eyes occasionally to stimulus. NSR. Levophed weaned to off, MAP>65. See flowsheets for vent settings; fio2 weaned. Pt tolerated turns. OGT leaking, replaced; placement confirmed by xray. TF running at goal. Peña draining to gravity. Skin intact, q2 turns.
--- NOTE | 2021-09-16 07:32 | NUR ---
ASSUME CARE: I have assumed care of this patient.
--- NOTE | 2021-09-16 18:33 | NUR ---
Pt's 02 needs have decreased. Pt's mom is very happy about this, but he does remain on ventilator with Covid Pneumonia. He is a 46 y.o. pt with down syndrom who accuired Covid and was then placed on a vent. Palliative care will remain available.
--- NOTE | 2021-09-16 18:50 | NUR ---
SHIFT SUMMARY: Vent settings AC/VC 50%/22/18/350. Peep was titrated from 20 to 18. ET tube retracted two cm from 26 to 24 at the lip. Propofol at 35 mg/kg/min. Tube feed rate increased from 25 to 45 this shift. Total output 1425; intake 1875. Blood pressures were stable and required no vassopressors.
[2021-09-17 04:00] LABS: BASOPHILS ABSOLUTE AUTO 0.01 K/mm3 (0.00-0.23); BASOPHILS PERCENT AUTO 0 % (0-2); EOSINOPHILS PERCENT AUTO 0 % (0-6); Hematocrit 43.2 % (37.0-53.0); Hemoglobin 14.3 g/dL (13.5-17.5); IMMATURE GRAN ABSOLUTE AUTO 0.12 K/mm3 (0.00-0.10); IMMATURE GRAN PERCENT AUTO 1 % (0-1); LYMPHOCYTES PERCENT AUTO 11 % (21-46); MONOCYTES ABSOLUTE AUTO 0.87 K/mm3 (0.16-1.47); MONOCYTES PERCENT AUTO 8 % (4-13); Mean Corpuscular HGB 29.6 pg (26.0-34.0); Mean Corpuscular HGB Conc 33.1 g/dL (31.5-36.5); Mean Corpuscular Volume 89 fL (80-100); Mean Platelet Volume 9.7 fL (9.1-12.4); NEUTROPHILS ABSOLUTE AUTO 8.79 K/mm3 (1.96-9.15); NEUTROPHILS PERCENT AUTO 80 % (41-73); NRBC ABSOLUTE 0.13 K/mm3 (0.00-0.02); NRBC Auto 1.2 /100 WBC (0.0-0.2); Platelet Count 319 K/mm3 (150-400); RDW Coefficient Variation 16.6 % (11.7-14.2); RDW Standard Deviation 54.5 fL (35.1-46.3); Red Blood Cell Count 4.83 M/mm3 (4.30-5.90); White Blood Cell Count 10.99 K/mm3 (4.00-11.30)
[2021-09-17 04:19] LABS: Anion Gap 3 mmol/L (6-16); Blood Urea Nitrogen 33 mg/dL (8-24); Bun/Creatinine Ratio 35.4 (12.0-20.0); CO2, Blood 35 mmol/L (21-32); Calcium, Blood 8.3 mg/dL (8.5-10.1); Chloride, Blood 100 mmol/L (98-108); Creatinine, Blood 0.93 mg/dL (0.60-1.20); Glomerular Filtration Rate >60 (60-); Glucose, Blood 193 mg/dL (70-99); Magnesium, Blood 2.5 mg/dL (1.6-2.4); Potassium, Blood 4.1 mmol/L (3.5-5.5); Sodium, Blood 138 mmol/L (136-145)
--- NOTE | 2021-09-17 06:22 | NUR ---
SHIFT SUMMARY: Pt respons to painful stimuli on all extremities. Unable to do a full sedation vacation due to pt.'s oxygen demands. Pt is able to open eyes with sedation on. PERRLA @ 1. Remains intubated. Vent settings on AC/VC 22L/350mL/65% PEEP at 18. Pt did destaurated down to 85%-87% after bath; therefore, increased FIO2 from 50% to 65%. Scant oral and ETT secretions. HR 80's, normal sinus rhythm. Afebrile. BP stable. Edematous. OGT remains in place with continuous tube feeding on. TF now at goal rate which is 60 mL/hr. Residuals ranged from 100 mL to 125 mL. No BM. Adequate UO with Lasix given per order. Blood sugar slowly increasing, no insulin ordered but has CBG checks q6h. Will notify oncoming day shift RN regarding increasing blood sugars. Infusions: propofol, heparin (remains unchanged per pharmacy order) and normal saline.
--- NOTE | 2021-09-17 18:41 | NUR ---
SEDATED/INTUBATED, PUPILS 3MM BRISK, OPENS EYES TRACKS TO SOUND, NOT FOLLOWING COMMANDS, DIFFICULT TO FULLY ASSESS NEURO D/T SEDATION/VENT, NO SEDATION VACATION PER MD, PROP AT 40, NSR 80/90S, WEAK +1 PULSES, +2 EDEMA CONTINUES, BP WNL, LUNGS CLEAR/DIM, PEEP DOWN TO 16 W/ FIO2 65, CO2 WNL, SCANT SECRETIONS, NO BM, HYPOACTIVE BMS, TOELRATING GOAL TF RESIDUAL OF 150, RESTRAINTS CONTINUED, ROCHA ADEQUATE UOP W/ LASIX, TRENDING UP BLOOD GLUCOSE ON DECADRON, LOW SLIDING SCALE INSULIN INITIATED, WILL REPORT TO NIGHT RN.
[2021-09-18 03:32] LABS: BASOPHILS ABSOLUTE AUTO 0.01 K/mm3 (0.00-0.23); BASOPHILS PERCENT AUTO 0 % (0-2); EOSINOPHILS PERCENT AUTO 0 % (0-6); Hematocrit 41.5 % (37.0-53.0); Hemoglobin 13.4 g/dL (13.5-17.5); IMMATURE GRAN ABSOLUTE AUTO 0.22 K/mm3 (0.00-0.10); IMMATURE GRAN PERCENT AUTO 2 % (0-1); LYMPHOCYTES PERCENT AUTO 11 % (21-46); MONOCYTES ABSOLUTE AUTO 0.89 K/mm3 (0.16-1.47); MONOCYTES PERCENT AUTO 9 % (4-13); Mean Corpuscular HGB 29.1 pg (26.0-34.0); Mean Corpuscular HGB Conc 32.3 g/dL (31.5-36.5); Mean Corpuscular Volume 90 fL (80-100); Mean Platelet Volume 9.8 fL (9.1-12.4); NEUTROPHILS PERCENT AUTO 77 % (41-73); NRBC ABSOLUTE 0.07 K/mm3 (0.00-0.02); NRBC Auto 0.7 /100 WBC (0.0-0.2); Platelet Count 308 K/mm3 (150-400); RDW Coefficient Variation 16.6 % (11.7-14.2); RDW Standard Deviation 55.4 fL (35.1-46.3); Red Blood Cell Count 4.61 M/mm3 (4.30-5.90); White Blood Cell Count 9.62 K/mm3 (4.00-11.30)
[2021-09-18 03:49] LABS: Anion Gap 3 mmol/L (6-16); Blood Urea Nitrogen 36 mg/dL (8-24); Bun/Creatinine Ratio 41.2 (12.0-20.0); CO2, Blood 33 mmol/L (21-32); Calcium, Blood 7.4 mg/dL (8.5-10.1); Chloride, Blood 99 mmol/L (98-108); Creatinine, Blood 0.87 mg/dL (0.60-1.20); Glomerular Filtration Rate >60 (60-); Glucose, Blood 193 mg/dL (70-99); Potassium, Blood 3.8 mmol/L (3.5-5.5); Sodium, Blood 135 mmol/L (136-145)
--- NOTE | 2021-09-18 06:37 | NUR ---
SHIFT SUMMARY: Neuro - Remains sedated with Propofol. Pt did require an increase with sedation due to desaturation. Did not perform sedation vacation per MD order and pt.'s high oxygen requirements. Pt does responds to painful stimuli on all extremities. PERRLA @ 3. Resp - Pt had multiple episodes of desaturation overnight. Around 0320, pt desaturated down to low 80's, RN and RT at bedside. Increase Fio2 but was unable to get saturation back up, pt was bagged for approx. 15 min - 20 mins. Vent settings: AC/VC 22/350/85/16. RT suctioned pt before bagging and noticed a brown mucous plug at the tip of ETT suction catheter. Lung sounds remains diminished bilateral. Scant to small secretions. Cardiac - Sinus Rhythm with HR 70-80's. Afebrile. Edematous. BP stable. Pulses are palpable. GI/: NO BM overnight, adequate UO. TF @ goal, with residuals within 50mL. Integ: q2h turns, panniculus, pannus has powder and pillow case to prevent excessive moisture. Infusions: propofol, heparin and normal saline
--- NOTE | 2021-09-18 08:30 | NUR ---
Assumed Care. Pt opens eyes spontanously and to noise. Pupils are brisk reaction. 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 Good gag, and cough noted. Propofol running at 50mcq/hr. Lung sounds coarse with possible rub on the right. ETCO2 running in the 40's. Line was plugged and needed to be replaced. Diminished in bases. ETT tube suctioned due to desat, thick brown red tinged secretions obtained. Spoke with Dr. Baumann who will re-order sputum culture. AC vent settings: 22/350/16/85%. Sats decreased to 77% after he was repositioned but improved after the suction was completed. Sinus on the monitor running in the 80's. BP WNL, MAP 90-100's. Dependent edema BLE and BUE. Abd obese round. BT-hypoactive. OG with continuous tube feed running at goal of 60ml, residual after 30 min on hold resulted with 200ml of brown bile residuals wasted. Line flushed and feed restarted. No BM noted as of yet. Peña patent and draining clear yellow. Skin with some redness in skin folds, dry with powder and cloth to seperate. Lotion to BLE. Other Gtts: Heparin at 17, NS at TKO. Morning care provided. Mother is now at bedside. Will continue to monitor.
--- NOTE | 2021-09-18 10:37 | NUR ---
SPUTUM WAS COLLECTED WITH USE OF LAVAGE IT WAS VERY THICK AND STICKY. BROWNISH WITH SOME RED TINGE. SHOWED DR. DENTON BEFORE SENDING TO LAB.
--- NOTE | 2021-09-18 14:22 | NUR ---
Tube feeding decreased to 30ml/hr per dietary. Patient has been tolerating the small shift in weight better than doing large lift movements. Sats have maintained in the 96%. RT decreased Fio2 a couple of hours ago to 80%.
--- NOTE | 2021-09-18 18:04 | NUR ---
SHIFT SUMMARY: Pt opens eyes spontanously and to verbal stimuli. Pupils brisk, but does not track or follow commands. Responded to mothers voice with facial expression. No sedation vacation due to need for high peep on vent. LS coarse crackles diminished in bases. Twice today pt desated to low 80's with movement, lavage was provided to remove very thick, brown/red mucus plugs. Sample sent for culture. Dr. Baumann was shown and informed. Sats have averaged 95-96%. ETCO2 in the 40's. Continues on AC Vent settings at 22/350/16 FIO2 was decreased to 80%. Sinus with occational short periods of sinus tach on monitor with rate 110's. Average rate 90's. Generalized edema, dependent in BUE/BLE. Hypoactive BT. OG w/ VHP now at 30ml/hr. Residules today 200; 225; 260 of brown bile/formula. Dr. Baumann informed and dietary. No BM. Tetragenetics patent clear yellow. I&O placed patient at -1810 today. Skin has several dry scaly patches, and redness in skin folds. Small patch of scaling skin in skin fold of lower back came open less then dime size. Other Gtts include heprin which is now running at 17 units/kg/hr. Propofol continues at 50mcq/hr. Education was provided to mother in regards to disease process, diet, activity, healing process. Mother verbalized understanding and very interested in learning what she needs to. Mother has been at bedside all day. Will report to oncoming RN.
--- NOTE | 2021-09-18 21:45 | NUR ---
ASSUMED CARE RECEIVED REPORT AT 1900. PATIENT RASS -4 ON 50 MCG PROPOFOL. NOT FOLLOWING COMMANDS OR OPENING EYES TO VOICE, BUT GRIMMACES WITH ORAL CARE. PERRL. BILATERAL WRIST RESTRAINTS CONTINUED. AFEBRILE. NSR-ST 90S-100S. SBP 130S. WEAK/PALPABLE PULSES. GENERALIZED DEPENDENT EDEMA. REMAINS ON VENTILATOR AC/22/350/16 PEEP/ 75%. SPO2 93-96%. DIM LUNG SOUNDS WITH FINE EX. WHEEZE. ROCHA PATENT AND DRAINING CLEAR/YELLOW URINE. TF AT GOAL, REGLAN TO START THIS SHIFT. NO BM. PATIENT SEEMS TO BE RESTING COMFORTABLY AT THIS TIME.
[2021-09-19 01:06] LABS: BASOPHILS ABSOLUTE AUTO 0.03 K/mm3 (0.00-0.23); BASOPHILS PERCENT AUTO 0 % (0-2); EOSINOPHILS PERCENT AUTO 0 % (0-6); Hematocrit 45.6 % (37.0-53.0); Hemoglobin 14.9 g/dL (13.5-17.5); IMMATURE GRAN ABSOLUTE AUTO 0.49 K/mm3 (0.00-0.10); IMMATURE GRAN PERCENT AUTO 4 % (0-1); LYMPHOCYTES ABSOLUTE AUTO 1.85 K/mm3 (0.84-5.20); LYMPHOCYTES PERCENT AUTO 15 % (21-46); MONOCYTES PERCENT AUTO 12 % (4-13); Mean Corpuscular HGB 29.5 pg (26.0-34.0); Mean Corpuscular HGB Conc 32.7 g/dL (31.5-36.5); Mean Corpuscular Volume 90 fL (80-100); NEUTROPHILS ABSOLUTE AUTO 8.53 K/mm3 (1.96-9.15); NEUTROPHILS PERCENT AUTO 69 % (41-73); NRBC ABSOLUTE 0.05 K/mm3 (0.00-0.02); NRBC Auto 0.4 /100 WBC (0.0-0.2); Platelet Count 353 K/mm3 (150-400); RDW Coefficient Variation 16.7 % (11.7-14.2); RDW Standard Deviation 55.5 fL (35.1-46.3); Red Blood Cell Count 5.05 M/mm3 (4.30-5.90)
[2021-09-19 01:31] LABS: Albumin, Blood 2.1 g/dL (3.4-5.0); Anion Gap 4 mmol/L (6-16); Blood Urea Nitrogen 43 mg/dL (8-24); Bun/Creatinine Ratio 42.6 (12.0-20.0); CO2, Blood 36 mmol/L (21-32); Calcium, Blood 8.4 mg/dL (8.5-10.1); Chloride, Blood 97 mmol/L (98-108); Creatinine, Blood 1.01 mg/dL (0.60-1.20); Glomerular Filtration Rate >60 (60-); Glucose, Blood 178 mg/dL (70-99); Magnesium, Blood 2.5 mg/dL (1.6-2.4); Phosphorus, Blood 4.4 mg/dL (2.5-4.9); Potassium, Blood 4.2 mmol/L (3.5-5.5); Sodium, Blood 137 mmol/L (136-145)
--- NOTE | 2021-09-19 05:55 | NUR ---
SHIFT SUMMARY PATIENT OPENS EYES TO PAINFUL STIMULI OTHERWISE NOT FOLLOWING COMMANDS. POSITIVE COUGH/GAG. PERRL. SEDATED ON 50 PROPOFOL. BILAT WRIST RESTRAINTS. PATIENT REMAINS INTUBATED AC/VC/22/350/PEEP 16/ 75%. PRE-OXYGENATION AT 100% DURING BATH. LOWEST SPO2 WAS 87%. NO EVENTS OF MUCOUS PLUGGING. SCANT/SMALL SECRETIONS. DIM/COURSE LUNG SOUNDS WITH FINE EXPIRATORY WHEEZES. NSR-ST 90S-100S. SBP 130S-150S. FAINT PULSES. DEPENDENT EDEMA 2+ TO 3+. PATENT ROCHA DRAINING CLEAR/YELLOW URINE. NO BM THIS SHIFT. CBGS 160S-170S. TF AT GOAL OF 30 ML/HR. HEPARIN REMAINS AT 16 UNITS/HR. PATIENT APPEARS COMFORTABLE AT THIS TIME.
--- NOTE | 2021-09-19 07:25 | NUR ---
Receieved report from Mikey AYALA. Patient is intubated and sedated. He has 7.5 ET 23 at teeth and settings of 22/350/70/16 and sats low 90%'s, RT in room. He withdrawls from pain. He has PICC line in LEODAN and dressing intact and site WNL's and is infusing Heparin 16 units/kg/min, Propofol at 50 mcg/kg/min, and NS TKO. He has 14 Fr acuña draining to gravity light heriberto colored urine. He is in bilateral soft wrist restraints for line and tube safety, checked skin and circulation. He has OG in place and in infusing VHP at 30 ml/hr goal rate and 30 mlwater flushes Q4 hr. Skin over all in good condition and yeast in some folds.
--- NOTE | 2021-09-19 09:30 | NUR ---
Patient continues to be intubated and sedated. No vent or gtt changes. Patient's mother at bedside. Tolerated meds though OG. Repositioned anfd performed more oral care.
--- NOTE | 2021-09-19 14:09 | NUR ---
Patient remains stable, vent settings 22/350/70/16 and sats 91%. He continues on Propofol 50 mcg/kg/min, NS TKO. Peña remains patent. Repositioned patient. Mother has been in and out. Oral care done.
--- NOTE | 2021-09-19 16:06 | NUR ---
Patient continues to rest intubated and sedated. Vent settings 22/380/55/16 and sats low 90%'s. No gtt setting changes. Mother at bedside. Peña patent and draining heriberto colored urine. Repositioned.
--- NOTE | 2021-09-19 16:19 | NUR ---
Patient remains on RA and sats upper 90%'s. She continues to get up to bed side cammode and now currently has about 200 ml's yellow urine every 30 minutes and small amout of stool smae time light brown in color and soft. She has LR at 100 ml/hr and Levophed at 2 mcg/min for systolics <90. She is alert and oriented and is able to communiacte her needs.
--- NOTE | 2021-09-19 18:11 | NUR ---
ASSUMED CARE AT 1700. REPORT TAKEN FROM ROB. PT ON MECHANICAL VENTILATION, SEDATED W PROPOFOL AT 50. HEPARIN RUNNING AT 16 UNITS/KG/HR. FIO2 50% PEEP 16. LUNGS DIM/COARSE. SINUS RHYTHM 80S-90S. TUBE FEED RUNNING AT GOAL. MOTHER AT BEDSIDE.
--- NOTE | 2021-09-20 01:42 | NUR ---
ASSUMED CARE 1900 PATIENT REMAINS INTUBATED AC/VC PEEP 16/ 55%. SPO2 90-02%. WITHDRAWALS FROM PAIN, OPENS EYES TO PAINFUL STIMULI. BILAT WRIST RESTRAINTS. AFEBRILE. NSR 90S. SBP 130S-150S. 2-3+ GENERALIZED EDEMA. COURSE LUNG SOUNDS. SCANT-SMALL ETT SECRETIONS. HYPOACTIVE BOWEL TONES, FIRM ABD. NO BM. PATENT ROCHA YELLOW/SEDIMENT URINE MOIST SKIN BREAKDOWN MIDDLE BACK FOLDS WITH PREVIOUS SKIN TEAR. PATIENT APPEARS TO BE RESTING COMFORTABLY AT THIS TIME.
[2021-09-20 04:03] LABS: BASOPHILS ABSOLUTE AUTO 0.04 K/mm3 (0.00-0.23); BASOPHILS PERCENT AUTO 0 % (0-2); EOSINOPHILS PERCENT AUTO 0 % (0-6); Hemoglobin 14.5 g/dL (13.5-17.5); IMMATURE GRAN ABSOLUTE AUTO 0.65 K/mm3 (0.00-0.10); IMMATURE GRAN PERCENT AUTO 3 % (0-1); LYMPHOCYTES ABSOLUTE AUTO 0.79 K/mm3 (0.84-5.20); LYMPHOCYTES PERCENT AUTO 4 % (21-46); MONOCYTES ABSOLUTE AUTO 1.34 K/mm3 (0.16-1.47); MONOCYTES PERCENT AUTO 7 % (4-13); Mean Corpuscular HGB 29.2 pg (26.0-34.0); Mean Corpuscular HGB Conc 32.2 g/dL (31.5-36.5); Mean Corpuscular Volume 91 fL (80-100); Mean Platelet Volume 10.3 fL (9.1-12.4); NEUTROPHILS ABSOLUTE AUTO 16.75 K/mm3 (1.96-9.15); NEUTROPHILS PERCENT AUTO 86 % (41-73); Platelet Count 347 K/mm3 (150-400); RDW Coefficient Variation 16.3 % (11.7-14.2); Red Blood Cell Count 4.96 M/mm3 (4.30-5.90); White Blood Cell Count 19.57 K/mm3 (4.00-11.30)
[2021-09-20 04:30] LABS: Albumin, Blood 1.9 g/dL (3.4-5.0); Anion Gap 5 mmol/L (6-16); Blood Urea Nitrogen 42 mg/dL (8-24); Bun/Creatinine Ratio 48.3 (12.0-20.0); CO2, Blood 35 mmol/L (21-32); Calcium, Blood 8.8 mg/dL (8.5-10.1); Chloride, Blood 96 mmol/L (98-108); Creatinine, Blood 0.87 mg/dL (0.60-1.20); Glomerular Filtration Rate >60 (60-); Glucose, Blood 217 mg/dL (70-99); Phosphorus, Blood 4.1 mg/dL (2.5-4.9); Potassium, Blood 4.7 mmol/L (3.5-5.5); Sodium, Blood 136 mmol/L (136-145)
--- NOTE | 2021-09-20 06:07 | NUR ---
SHIFT SUMMARY. UNEVENTFUL NIGHT. REMAINS INTUBATED, 55% FIO2 16 PEEP. NO EPISODES OF DESATURATION. TOLERATED BED BATH WELL. RASS -4 ON 50 PROPOFOL. COURSE LUNG SOUNDS. SCANT ETT SECRETIONS. NSR-ST 90S-100S. SBP 120S-150S. 3-4+ EDEMA. PATENT ROCHA CATH. NO BM. TF 30 ML/HR. SKIN BREAKDOWN ON BACK FROM MOISTURE. PATIENT APPEARS TO BE RESTING COMFORTABLY AT THIS TIME.
--- NOTE | 2021-09-20 16:36 | NUR ---
Review of pt in team meeting today. Discussion of future care up to and including a trach and a peg tube. Pt mother expressed some severe caregiver stress and dysfunction. She repeatedly stated she has been careing for her family. Her was very sick and she cared for him he passed eleven yrars ago. she also cared for her mother with dementia. She has been her sons primary caregiver for many years. Advised her that we need to discuss possible plans going forward. 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 Discussed possible care at [facility]. Or rehab care at a halfway. She was very distruaght by the possiblity of [facility] and going to [facility]. She states she does not have support she only has one friend who she talks to about her life and stress. She had to admit she is under great stress because she is her sons pain caregiver and while he is in the hospital she is not getting paid to care for him. They are renting a house and she was going to try to buy a house. Advised her to call her employer and to see about unemployment. Advised her to tell her landlord that her son is in the hospital. she is going to talk with her friend and start a pryer chain. She feels he ould not tolerate being in a [facility] facility. She is hopint to get him off the vent and home with home health. Will have a follow up conversation with her about prognosis. Review with janitor caretaker to see if he would even qualify for [facility] with his comorbid conditions. Pt was minimal in his ambulation and activity.kps score is 20%.
--- NOTE | 2021-09-20 18:24 | NUR ---
NO ACUTE EVENTS THIS SHIFT PT REMAINS ON MECHANICAL VENTILATION 55% FIO2, PEEP 16. PROPOFOL RUNNING AT 50. HEPARIN AT 16. NO BM THIS SHIFT. RESIDUALS CHECKED THIS EVENING, RESULT OF 150CC. WOUND ON SKIN FOLD OF BACK IS BEEFY RED. CLEANSED WITH STERILE WATER AND DRESSED WITH A FOAM DRESSING. WOULD CONSULT ORDERED.
--- NOTE | 2021-09-20 20:22 | NUR ---
ASSUMED CARE: PT INTUBATED & SEDATED. VENT SETTINGS AC/VC, 55%, RR 22, PEEP 16. SPO2 92%. SINUS RHYTHM W/ RATE IN 90S. SBP 140S, MAP 90S. PALPABLE, WEAK PULSES THROUGHOUT. EDEMA IN EXTREMITIES, DIFFICULT TO GAUGE DEGREE OF EDEMA D/T MORBID OBESITY. AFEBRILE. LUNGS COARSE SOUNDING. FIRM ABDOMEN, HYPOACTIVE BOWEL SOUNDS. TUBE FEED AT GOAL RATE OF 30ML/HR W/ 30ML H2O WATER FLUSH Q4H. BILATERAL WRIST RESTRAINTS IN PLACE W/O E/O INJURY. REDNESS TO SKIN FOLDS.
[2021-09-21 04:00] LABS: BASOPHILS ABSOLUTE AUTO 0.03 K/mm3 (0.00-0.23); BASOPHILS PERCENT AUTO 0 % (0-2); EOSINOPHILS PERCENT AUTO 0 % (0-6); Hematocrit 44.3 % (37.0-53.0); Hemoglobin 14.2 g/dL (13.5-17.5); IMMATURE GRAN ABSOLUTE AUTO 0.71 K/mm3 (0.00-0.10); IMMATURE GRAN PERCENT AUTO 4 % (0-1); LYMPHOCYTES ABSOLUTE AUTO 0.59 K/mm3 (0.84-5.20); LYMPHOCYTES PERCENT AUTO 3 % (21-46); MONOCYTES ABSOLUTE AUTO 1.51 K/mm3 (0.16-1.47); MONOCYTES PERCENT AUTO 8 % (4-13); Mean Corpuscular HGB 28.9 pg (26.0-34.0); Mean Corpuscular HGB Conc 32.1 g/dL (31.5-36.5); Mean Corpuscular Volume 90 fL (80-100); Mean Platelet Volume 10.2 fL (9.1-12.4); NEUTROPHILS ABSOLUTE AUTO 16.88 K/mm3 (1.96-9.15); NEUTROPHILS PERCENT AUTO 86 % (41-73); Platelet Count 371 K/mm3 (150-400); RDW Coefficient Variation 16.1 % (11.7-14.2); RDW Standard Deviation 52.8 fL (35.1-46.3); Red Blood Cell Count 4.92 M/mm3 (4.30-5.90); White Blood Cell Count 19.72 K/mm3 (4.00-11.30)
[2021-09-21 04:16] LABS: Albumin, Blood 1.9 g/dL (3.4-5.0); Anion Gap 5 mmol/L (6-16); Blood Urea Nitrogen 43 mg/dL (8-24); Bun/Creatinine Ratio 51.9 (12.0-20.0); CO2, Blood 35 mmol/L (21-32); Calcium, Blood 8.7 mg/dL (8.5-10.1); Chloride, Blood 95 mmol/L (98-108); Creatinine, Blood 0.83 mg/dL (0.60-1.20); Glomerular Filtration Rate >60 (60-); Glucose, Blood 269 mg/dL (70-99); Magnesium, Blood 2.8 mg/dL (1.6-2.4); Phosphorus, Blood 3.7 mg/dL (2.5-4.9); Potassium, Blood 4.4 mmol/L (3.5-5.5); Sodium, Blood 135 mmol/L (136-145); Triglycerides 81 mg/dL (30-160)
--- NOTE | 2021-09-21 05:12 | NUR ---
SHIFT SUMMARY: FIO2 DOWN TO 50%. PT PASSING FLATUS. NO OTHER CHANGES OVERNIGHT.
--- NOTE | 2021-09-21 07:10 | NUR ---
Receive report from Katja AYALA. Patient remains intubated and sedated with 7.5 ET and 23cm at teeth and vent settings of 22/380/50/16 and sats 91%. He withdrawls for pain and oral care. He has LEODAN PICC line, dressing intact and site WNL and is infusing Propofol at 50 mcg/kg/min, Heparin at 16 units/kg/hr, NS TKO. He has OG in place and in infusing VHP at 30 ml/hr goal rate and 30 ml q4 water flushes. He has 14 Fr acuña draining to gravity yellow urine adequate amounts. He has SCD's bilaterally to LE. He has soft wrist restraints UE bilaterally, skin and circulation checked.
--- NOTE | 2021-09-21 09:57 | NUR ---
Patient had ajustments to vent and current settings of 22/380/45/14 and sats 93%. He tolerated IV and meds through OG. Oral care and repositioning. Mariana remains patent. Dr Smith in room talking about trach and Vibra with mother. No changes to gtt's.
--- NOTE | 2021-09-21 12:13 | NUR ---
Patient has been doing well and have been decreasing Peep and now is down to 10 and sats 93-94% and resp remains at 22. Reduced propofl briefly to change out bottles and patient opened eye and went back to sleep. Propofol at 50 mcg/kg/mn, Heparin at 16 units/kg/hr and NS TKO. CBG 248 and 6 units humalog. Mother remians at bedside.
--- NOTE | 2021-09-21 14:08 | NUR ---
Patient remains on same vent settings with PEEP 10 and tolerating very well with sats 92% and RR 22, all other VSS. Wound care came by and will recall her when rotating patient. Mother remains at bedside. Repositioned.
--- NOTE | 2021-09-21 14:10 | NUR ---
Patient tolerated finger food lunch. All air removed from right TR band and no signs or swelling. oozing, or hematoma. Will remove TR band and place bandaid. Slightly hypertensive 180's. Gave tylenol for headache per AUG. Patient denies any chest pain.
--- NOTE | 2021-09-21 15:53 | NUR ---
Patient was turned completely to right side and place on 100% fiO2 and sats high 80%'. He had small stool soft brown and cleaned him up and changes top linen. Pulled up in bed and repositioned. His current settings are 22/280/50/10 and sats 88-89%. Emptied 1900 yellow urine from acuña before repositioning him.
--- NOTE | 2021-09-21 19:02 | NUR ---
Gave report to Citlalli AYALA. Patients vent settings 22/380/60/10 and sats 89%. PICC line infusing Propofol 50 mcg/kg/min, Heparin 16 units/kg/hr and NS TKO. Peña output was 1900mls. Mother at bedside . He has bilateral LE SCD's and bilateral soft wrist restraints, skin and circulation checked.
[2021-09-22 04:42] LABS: BASOPHILS ABSOLUTE AUTO 0.02 K/mm3 (0.00-0.23); BASOPHILS PERCENT AUTO 0 % (0-2); EOSINOPHILS PERCENT AUTO 0 % (0-6); Hemoglobin 14.3 g/dL (13.5-17.5); IMMATURE GRAN ABSOLUTE AUTO 0.45 K/mm3 (0.00-0.10); IMMATURE GRAN PERCENT AUTO 3 % (0-1); LYMPHOCYTES ABSOLUTE AUTO 0.37 K/mm3 (0.84-5.20); LYMPHOCYTES PERCENT AUTO 2 % (21-46); MONOCYTES ABSOLUTE AUTO 1.48 K/mm3 (0.16-1.47); MONOCYTES PERCENT AUTO 8 % (4-13); Mean Corpuscular HGB 31.6 pg (26.0-34.0); Mean Corpuscular HGB Conc 35.8 g/dL (31.5-36.5); Mean Corpuscular Volume 88 fL (80-100); Mean Platelet Volume 10.2 fL (9.1-12.4); NEUTROPHILS PERCENT AUTO 87 % (41-73); Platelet Count 370 K/mm3 (150-400); RDW Standard Deviation 52.3 fL (35.1-46.3); Red Blood Cell Count 4.53 M/mm3 (4.30-5.90); White Blood Cell Count 18.02 K/mm3 (4.00-11.30)
[2021-09-22 05:11] LABS: Albumin, Blood 1.6 g/dL (3.4-5.0); Anion Gap 7 mmol/L (6-16); Blood Urea Nitrogen 42 mg/dL (8-24); Bun/Creatinine Ratio 60.9 (12.0-20.0); CO2, Blood 32 mmol/L (21-32); Calcium, Blood 7.8 mg/dL (8.5-10.1); Chloride, Blood 88 mmol/L (98-108); Creatinine, Blood 0.69 mg/dL (0.60-1.20); Glomerular Filtration Rate >60 (60-); Glucose, Blood 261 mg/dL (70-99); Magnesium, Blood 2.6 mg/dL (1.6-2.4); Phosphorus, Blood 3.3 mg/dL (2.5-4.9); Sodium, Blood 127 mmol/L (136-145)
[2021-09-22 05:17] LABS: Potassium, Blood 4.7 mmol/L (3.5-5.5)
[2021-09-22 08:06] LABS: Albumin, Blood 1.7 g/dL (3.4-5.0); Anion Gap 3 mmol/L (6-16); Blood Urea Nitrogen 42 mg/dL (8-24); Bun/Creatinine Ratio 57.6 (12.0-20.0); CO2, Blood 37 mmol/L (21-32); Calcium, Blood 8.4 mg/dL (8.5-10.1); Chloride, Blood 95 mmol/L (98-108); Creatinine, Blood 0.73 mg/dL (0.60-1.20); Glomerular Filtration Rate >60 (60-); Glucose, Blood 260 mg/dL (70-99); Phosphorus, Blood 3.4 mg/dL (2.5-4.9); Potassium, Blood 4.1 mmol/L (3.5-5.5); Sodium, Blood 135 mmol/L (136-145)
--- NOTE | 2021-09-22 09:39 | NUR ---
ASSUMED CARE OF PATINET 0700: OPENS EYES TO STIMULATION, WITHDRAWS, PUPILS 3MM BRISK, NSR 70S, BP WNL, COARSE/DIM LUNGS SCANT/MOD AMOUNT SECRETIONS, VENT SETTINGS REMAIN 350/10/22, REQUIRE INCREASE IN FIO2 TO 70, DESATURATES WITH STIMULATION, RECTAL TUBE IN PLACE BROWN MINIMAL TYPE 6, ROCHA DRAINING CONCENTRATED YELLOW, TF GOAL 30ML/HR, NO RESIDUALS, HYPERACTIVE FIRM DISTENDED ABDOMEN, WILL CONTINUE TO MONITOR.
--- NOTE | 2021-09-22 18:23 | NUR ---
OPENS EYES TO STIMULATION, WITHDRAWS FROM PAIN, PROP DECREAED TO 45MCG/MIN, NSR/ST 90/100S, +2 PULSES, EDEMA +2 STILL PRESENT, BP WNL, LUNGS COARSE, INTERMITTANT IN LINE SUCTION COUGH REFLEX, SCANT SECRETIONS, REQUIRED INCREASE IN PEEP TO 12 AND FIO2 TO 85 THIS SHIFT, ABDOMEN REMAINS DISTENDED, HYPERACTIVE TO NORMOACTIVE BOWELS, 250ML TPYE 6 STOOL RECTAL TUBE, ADEQUATE UOP CONCENTRATED W. LASIX, HEPARIN DECREASED TO 15 UNIT/HR REMAINS THIS AMOUNT DURING SHIFT, RESTRAINTS CONTINUED, WILL CONTINUE TO MONITOR AND REPORT TO NIGHT RN.
[2021-09-23 04:30] LABS: BASOPHILS ABSOLUTE AUTO 0.03 K/mm3 (0.00-0.23); BASOPHILS PERCENT AUTO 0 % (0-2); EOSINOPHILS PERCENT AUTO 0 % (0-6); Hematocrit 43.5 % (37.0-53.0); Hemoglobin 13.8 g/dL (13.5-17.5); IMMATURE GRAN PERCENT AUTO 2 % (0-1); LYMPHOCYTES ABSOLUTE AUTO 0.41 K/mm3 (0.84-5.20); LYMPHOCYTES PERCENT AUTO 2 % (21-46); MONOCYTES ABSOLUTE AUTO 1.59 K/mm3 (0.16-1.47); MONOCYTES PERCENT AUTO 9 % (4-13); Mean Corpuscular HGB 28.6 pg (26.0-34.0); Mean Corpuscular HGB Conc 31.7 g/dL (31.5-36.5); Mean Corpuscular Volume 90 fL (80-100); Mean Platelet Volume 10.2 fL (9.1-12.4); NEUTROPHILS ABSOLUTE AUTO 14.85 K/mm3 (1.96-9.15); NEUTROPHILS PERCENT AUTO 86 % (41-73); Platelet Count 356 K/mm3 (150-400); RDW Coefficient Variation 15.9 % (11.7-14.2); RDW Standard Deviation 52.3 fL (35.1-46.3); Red Blood Cell Count 4.82 M/mm3 (4.30-5.90); White Blood Cell Count 17.28 K/mm3 (4.00-11.30)
[2021-09-23 04:51] LABS: Anion Gap 5 mmol/L (6-16); Blood Urea Nitrogen 45 mg/dL (8-24); Bun/Creatinine Ratio 58.7 (12.0-20.0); CO2, Blood 35 mmol/L (21-32); Calcium, Blood 8.2 mg/dL (8.5-10.1); Chloride, Blood 93 mmol/L (98-108); Creatinine, Blood 0.77 mg/dL (0.60-1.20); Glomerular Filtration Rate >60 (60-); Glucose, Blood 277 mg/dL (70-99); Phosphorus, Blood 3.8 mg/dL (2.5-4.9); Potassium, Blood 4.3 mmol/L (3.5-5.5); Sodium, Blood 133 mmol/L (136-145)
--- NOTE | 2021-09-23 05:55 | NUR ---
SHIFT SUMMARY PATIENT REMAINED INTUBATED AND SEDATED T/O SHIFT. DURING FIRST REPOSITIONING, PATIENT DESATTED TO LOW TO MID 80'S DESPITE AN INCREASE IN FIO2 TO 100%. RT CALLED TO BEDSIDE AND VENT SETTINGS ADJUSTED TO PEEP 14 FIO2 100%-RR 22 AND TV 350 REMAINED THE SAME. SETTINGS TITRATED BACK DOWN TO PEEP OF 12 AND FIO2 90% BY END OF SHIFT. DURING THIS EVENT, SEDATION REQUIREMENTS WERE INCREASED D/T TACHYPNEA IN HIGH 20'S-LOW 30'S AND TV 100'S-250'S. MAX PROPOFOL REACHED 80 MCG/KG/MIN AND HAS SINCE BEEN TITRATED BACK DOWN TO 50MCG/KG/MIN. LUNG SOUNDS BECAME MORE COARSE T/O SHIFT WITH AN INCREASE IN SINUS, ORAL, AND ETT SECRETIONS. NO OTHER EVENTS OCCURED DURING SHIFT IN REGARD TO RESPIRATORY. HR DECREASED FROM 110'S TO LOW 90'S CURRENTLY AND BP REMAINED STABLE WITH MAPS GREATER THAN 65. HEPARIN REMAINED AT 15 UNITS/KG/HR. BT REMAINED HYPERACTIVE. NO RESIDUALS T/O SHIFT FROM OGT-TF REMAIN AT GOAL RATE 40ML/HR. RECTAL TUBE HAD TOTAL OF 200ML BROWN LIQUID STOOL OUT-BAG CHANGED THIS SHIFT. ROCHA REMAINED PATENT AND DRAINED 1050ML DARK YELLOW CLEAR URINE TO GRAVITY. DRESSING TO WOUND ON BACK CHANGED AND PICTURE ADDED TO CHART. NO OTHER CHANGES DURING SHIFT.
--- NOTE | 2021-09-23 10:33 | NUR ---
ASSUMED CARE OF PATIENT 0700: MINIMAL PAIN RESPONSE, PROP DOWN TO 45, PUPILS 3MM BRISK, ADDING FENT INVESTIGATION OFFICER 25MCG/HR, ST 100S, SOME P WAVE ELEVATION, EKG NORMAL MD AWARE, BP WNL, LUNGS COARSE, SCANT SECRETIONS, NO COUGH WITH IN LINE SUCTION, ABDOMEN REMAINS FIRM HYPOACTIVE BOWELS, RECTAL TUBE PATENT, ROHCA ADEQUATE UOP, TF GOAL 40ML/HR, WILL CONTINUE TO MONITOR.
--- NOTE | 2021-09-23 18:26 | NUR ---
MINIMAL PAIN RESPONSE THIS SHIFT, NO SEDATION VACATION PER MD, DESATURATES WITH STIMULATION, VENT/RESPIRATROY PRIORITY, PUPILS 3MM BRISK, FENT 25MCG/HR MANAGER ENROLLMENT ADDED, LUNGS COARSE, SCANT SECREIONS, NO COUGH REFLEX WITH IN LINE SUCTION THIS SHIFT, SATS >88 CURRENTLY PEEP 14/70%, BP WNL, SR/ST 90/100S, +2 EDEMA CONTINUED, MINIMAL RECTAL TUBE OUTPUT, ADEQUAT UOP ROCHA DARK, TF UP TO 50 FOR GOAL OF 55 TO BE MET AT 2300, NO RESIDUALS, ABDOMEN REMAINS FIRM HYPOACTIVE BOWELS, HEPARIN CONTINUES 15ML/HR, WILL CONTINUE TO MONITOR AND REPORT TO NIGHT RN.
--- NOTE | 2021-09-23 21:56 | NUR ---
ASSUMED CARE RECEIVED REPORT FROM JAMIE BAUMANN AT 1900. PT IS INTUBATED AND SEDATED, PROPOFOL AT 50MCG/KG/MIN, FENTANYL AT 25MCG/HR. RASS OF -5, NO EYE OPENING, NO PURPOSEFUL MOVEMENTS TO PAINFUL STIMULI, NO COUGH REFLEX WITH SUCTIONING, NO GRIMACING WITH ORAL CARE. VENT IS AC/VC: RATE 22/350/14/70%, SPO2 90-92%. DESATS WITH TURNING AND SLOW TO RECOVER. HR IS SR TO ST, RATE 90-LOW 100'S. BP STABLE. HEPARIN AT 15 UNITS/KG/HR. 2+ EDEMA IN ALL EXTREMITIES. ABDOMEN IS FIRM AND DISTENDED, BT X4, OG WITH VHP AT 50ML/HR WITH GOAL OF 55ML/HR AND Q4H H20 FLUSH. RECTAL TUBE PATENT WITH BROWN LIQUID OUTPUT. ROCHA PATENT DRAINING YELLOW/GREEN URINE TO GRAVITY. PICC TO LEODAN, 8CM OUT, INFUSING, FLUSHES WELL AND BLOOD RETURN NOTED. ORDERS REVIEWED, WILL TREAT PRESCRIBED.
--- NOTE | 2021-09-24 01:17 | NUR ---
REASSESSMENT RESIDUALS RECHECKED AND DARK BROWN IN COLOR WITH TUBE FEED PRESENT. PREVIOUS RESIDUALS WERE DARKER GREEN. 70MLS OBTAINED, 50ML DISCARDED, 20 REFED. BOWEL TONES PRESENT X4, BUT SLUGGISH. BROWN LIQUID STOOL CONTINUES TO DRAIN IN RECTAL TUBE. TUBE FEED REMAINS ON, BUT DID NOT INCREASE TO 55ML GOAL, INSTEAD REMAINS AT 50ML/HR WITH Q4H 30ML H20 FLUSHES.
[2021-09-24 03:36] LABS: BASOPHILS ABSOLUTE AUTO 0.01 K/mm3 (0.00-0.23); BASOPHILS PERCENT AUTO 0 % (0-2); EOSINOPHILS PERCENT AUTO 0 % (0-6); Hematocrit 37.3 % (37.0-53.0); Hemoglobin 13.1 g/dL (13.5-17.5); IMMATURE GRAN ABSOLUTE AUTO 0.59 K/mm3 (0.00-0.10); IMMATURE GRAN PERCENT AUTO 5 % (0-1); LYMPHOCYTES ABSOLUTE AUTO 0.49 K/mm3 (0.84-5.20); LYMPHOCYTES PERCENT AUTO 4 % (21-46); MONOCYTES ABSOLUTE AUTO 0.96 K/mm3 (0.16-1.47); MONOCYTES PERCENT AUTO 7 % (4-13); Mean Corpuscular HGB 31.7 pg (26.0-34.0); Mean Corpuscular HGB Conc 35.1 g/dL (31.5-36.5); Mean Corpuscular Volume 90 fL (80-100); NEUTROPHILS ABSOLUTE AUTO 11.06 K/mm3 (1.96-9.15); NEUTROPHILS PERCENT AUTO 84 % (41-73); Platelet Count 337 K/mm3 (150-400); RDW Coefficient Variation 15.5 % (11.7-14.2); RDW Standard Deviation 51.5 fL (35.1-46.3); Red Blood Cell Count 4.13 M/mm3 (4.30-5.90); White Blood Cell Count 13.11 K/mm3 (4.00-11.30)
[2021-09-24 04:03] LABS: Anion Gap 10 mmol/L (6-16); Blood Urea Nitrogen 56 mg/dL (8-24); Bun/Creatinine Ratio 73.4 (12.0-20.0); CO2, Blood 29 mmol/L (21-32); Calcium, Blood 7.2 mg/dL (8.5-10.1); Chloride, Blood 86 mmol/L (98-108); Creatinine, Blood 0.76 mg/dL (0.60-1.20); Glomerular Filtration Rate >60 (60-); Glucose, Blood 299 mg/dL (70-99); Potassium, Blood 4.8 mmol/L (3.5-5.5); Sodium, Blood 125 mmol/L (136-145)
--- NOTE | 2021-09-24 06:29 | NUR ---
PT REMAINS INTUBATED AND SEDATED. PROPOFOL AT 45MCG/KG/MIN, FENTANYL AT 25MCG/HR. RASS OF -5, NO PURPOSEFUL MOVEMENTS, DID HAVE COUGH REFLEX WHEN TURNED DURING BATH. TMAX 99.4. CURRENTLY AFEBRILE. LUNGS WERE MILDLY COARSE THROUGHOUT, DIMINISHED IN BASES. NO SECRETIONS VIA ETT SUCTION. VENT SETTINGS ARE AC/VC 22/350/14/40%, SPO2 HAS REMAINED 89-90% SINCE BEDBATH AT 0300. VERY SLOW TO RECOVER, EVEN WITH 100% FIO2. HR IS SR, RATE IN 80'S. BP STABLE. EDEMA 2+ THROUGHOUT ALL EXTREMITIES. TUBE FEED WAS TURNED OFF AROUND 0000 D/T DARK BROWN RESIDUALS THAT WERE PREVIOUSLY GREENISH YELLOW. TUBE FEED BACK ON, VHP AT 50ML/HR AT 0500 RESIDUAL WAS ONLY 30ML, HOWEVER WAS STILL DARK BROWN. BT HYPOACTIVE X4, 50ML RECTAL TUBE OUTPUT. ROCHA PATENT, DRAINED 1150ML TORIBIO URINE WITH SEDIMENT. SKIN UNCHANGED FROM INITIAL ASSESSMENT, FRICTION SKIN TEAR ON BACK REDRESSED WITH ABSORBANT PAD DURING BED BATH. HEPARIN DECREASED TO 14UNITS/KG/HR WITH ADJUSTED WEIGHT OF 98KG. WILL REPORT TO ONCOMING SHIFT WHEN AVAILABLE.
--- NOTE | 2021-09-24 08:25 | NUR ---
ASSUMED CARE OF PATIENT 0700: SEDATED/INTUBATED, PUPILS 2MM BRISK, UNRESPONSIVE TO PAIN, GCS 3, SEDATION DECREASED PROP AT 35, FENT 25MCG/HR, , VCAC 5PEEP/70%, COARSE LUNGS, MINIMAL SECRTIONS, SATS >88, BP WNL, NSR 70/80S, HEPARIN AT 14 UNIT/HR, ROCHA ADEQUATE UOP, RECTAL TUBE MINIMAL, TF SET TO GOAL 55ML/HR, 40ML DARK GREEN/BROWN RESIDUALS, WILL CONTINUE TO MONITOR.
[2021-09-24 12:05] LABS: Albumin, Blood 1.6 g/dL (3.4-5.0); Anion Gap 2 mmol/L (6-16); Blood Urea Nitrogen 57 mg/dL (8-24); Bun/Creatinine Ratio 66.7 (12.0-20.0); CO2, Blood 36 mmol/L (21-32); Calcium, Blood 7.7 mg/dL (8.5-10.1); Chloride, Blood 95 mmol/L (98-108); Creatinine, Blood 0.85 mg/dL (0.60-1.20); Glomerular Filtration Rate >60 (60-); Glucose, Blood 334 mg/dL (70-99); Phosphorus, Blood 4.1 mg/dL (2.5-4.9); Potassium, Blood 4.2 mmol/L (3.5-5.5); Sodium, Blood 133 mmol/L (136-145)
--- NOTE | 2021-09-24 18:12 | NUR ---
SEDATED/INTUABTED, DIFFICULT TO ASSESS SEDATION, PROP TITRATED DOWN TO 15MCG, ABLE TO OPEN EYES TO VOICE, MINIMAL PAIN RESPONSE, NOT FOLLOWING COMMANDS, PUPILS 3/4MM BRISK, COARSE LUNGS MINIMAL SECRETIONS, PEEP UP TO 16 AND FIO2 UP TO 75, TOLERATING GOAL TF 55ML/HR RESIDUALS 45ML DARK GREEN/BROWN, ADEQUATE UOP WITH ROCHA, CBGS REMAIN HIGH 200S COVERED WITH INSULIN, SR 80S, LOW BPS 1L NS BOLUS WITH ALBUMIN, BP CORRECTED, WILL CONTINUE TO MONITOR AND REPORT TO NIGHT RN.
--- NOTE | 2021-09-24 21:32 | NUR ---
ASSUMED CARE RECEIVED REPORT FROM JAMIE BAUMANN, AT 1900. PT REMAINS INTUBATED AND SEDATED, PROPOFOL DOWN TO 20MCG/KG/MIN, FENTANYL 25MCG/HR. HE ATTEMPTS TO OPEN EYES TO VOICE AND COMMAND, OPENS EYES WITH ORAL CARE, OTHERWISE UNABLE TO FOLLOW COMMANDS AND NO OTHER PURPOSEFUL MOVEMENTS. VENT SETTINGS AC/VC 22/350/16/75%, MAINTAINING SPO2 >92%. BITE BLOCK ON ETT CHANGED BY RT WITH THIS RN AT BEDSIDE, ETT REMAINS 24 AT THE TEETH. HR NSR WITH RATE IN 70-80'S, BP STABLE. AFEBRILE. OG WITH VHP AT GOAL OF 55ML/HR. 30ML DARK GREEN/BROWN RESIDUALS REFED. ROCHA PATENT, TORIBIO URINE DRAINING. RECTAL TUBE PATENT, DARK BROWN LIQUID STOOL. HEPARIN CONTINUES AT 13UNITS/KG/HR AFTER ANTI-XA DRAWN AT 1999. ORDERS REVIEWED, WILL TREAT PRESCRIBED.
[2021-09-25 04:20] LABS: Hematocrit 36.9 % (37.0-53.0); Hemoglobin 11.9 g/dL (13.5-17.5); Platelet Count 360 K/mm3 (150-400)
[2021-09-25 04:37] LABS: Albumin, Blood 1.8 g/dL (3.4-5.0); Anion Gap 3 mmol/L (6-16); Blood Urea Nitrogen 55 mg/dL (8-24); Bun/Creatinine Ratio 77.6 (12.0-20.0); CO2, Blood 36 mmol/L (21-32); Calcium, Blood 8.2 mg/dL (8.5-10.1); Chloride, Blood 96 mmol/L (98-108); Creatinine, Blood 0.71 mg/dL (0.60-1.20); Glomerular Filtration Rate >60 (60-); Glucose, Blood 313 mg/dL (70-99); Phosphorus, Blood 3.7 mg/dL (2.5-4.9); Potassium, Blood 4.2 mmol/L (3.5-5.5); Sodium, Blood 135 mmol/L (136-145)
--- NOTE | 2021-09-25 06:39 | NUR ---
PT REMAINS INTUBATED AND SEDATED WITH PROPOFOL AT 15MCG/KG/MIN AND FENTANYL 25MCG/HR. HE OPENS EYES TO REPOSITIONING, AND VOICE, BUT UNABLE TO FOLLOW COMMANDS. VENT CONTINUES UNCHANGED, AC/VC 22/350/16/75%, SPO2 >90%. HR REMAINED IN SR, RATE 70-80'S, BP STABLE. EDEMA IN ALL EXTREMITIES +2, UNCHANGED. TUBE FEED REMAINS AT GOAL OF 55ML/HR, MINIMAL RESIDUALS. IMPROVEMENT TO OUTPUT IN RECTAL TUBE, PATENT DRAINING BROWN LIQUID STOOL. ROCHA PATENT, DRAINING TORIBIO CLEAR URINE OUT. SKIN TEAR ON LEFT BACK CLEANED AND DRESSED WITH CALCIUM ALGINATE DURING COMPLETE BED BATH. HEPARIN GTT REMAINS UNCHANGED AT 13UNITS/KG/HR. CBG'S REMAINED IN HIGH 200'S, REQUIRING COVERAGE WITH 9 UNITS. AFEBRILE. WILL REPORT TO ONCOMING SHIFT.
--- NOTE | 2021-09-25 08:28 | NUR ---
ASSUMED CARE OF PATIENT 0700: OPENS EYES TO SOUND, PROP DOWN TO 10, FENT AT 25, 3M BRISK, MINIMAL PAIN RESPONSE, COUGH W/IN LINE SUCTION, BP STABLE, NR 80S, +2 PULSES, EDEMA +2 STILL PRESENT, HYPOACTIVE DISTENDED BOWELS, TF GOAL 55ML/HR, 150 RSIDUALS DICARDED 50ML, ROCHA DRAINING TO GRAVITY, RECTAL TUBE PATENT, WILL CONTINUE TO MONITOR.
--- NOTE | 2021-09-25 18:29 | NUR ---
SEDATED/INTUBATED, PUPILS 3MM BRISK, PROP REMAINS AT 15/FENT 25, OPENES EYES TO STIMULATION, WITHDRAWS FROM PAIN MINIMALLY, DOES NOT TRACK/FOLLOW COMMANDS, LUNGS COARSE, DOWN TO 40%/16 PEEP, SATS >88, ABDOMEN REMAINS FIRM HYPOACTIVE BOWELS, TF RESIDUALS 150 DARK BROWN/GREEN, TF REMAINS GOAL 55ML/HR, RECTAL TUBE MINIMAL TYPE 6 OUTPUT, ROCHA ADEQUATE OUTPUT, CBGS REMAIN HIGH COVERED WITH INSULIN, SR 80S, +2 EDEMA STILL PRESENT, BP WNL, WILL CONTINUE TO MONITOR AND REPORT TO NIGHT RN.
[2021-09-26 03:49] LABS: Hematocrit 38.5 % (37.0-53.0); Hemoglobin 12.6 g/dL (13.5-17.5); Mean Platelet Volume 10.1 fL (9.1-12.4); Platelet Count 419 K/mm3 (150-400)
[2021-09-26 04:11] LABS: Albumin, Blood 1.8 g/dL (3.4-5.0); Anion Gap 3 mmol/L (6-16); Blood Urea Nitrogen 51 mg/dL (8-24); Bun/Creatinine Ratio 82.8 (12.0-20.0); CO2, Blood 37 mmol/L (21-32); Calcium, Blood 8.3 mg/dL (8.5-10.1); Chloride, Blood 96 mmol/L (98-108); Creatinine, Blood 0.62 mg/dL (0.60-1.20); Glomerular Filtration Rate >60 (60-); Glucose, Blood 307 mg/dL (70-99); Phosphorus, Blood 3.5 mg/dL (2.5-4.9); Potassium, Blood 4.3 mmol/L (3.5-5.5); Sodium, Blood 136 mmol/L (136-145)
--- NOTE | 2021-09-26 05:53 | NUR ---
SHIFT SUMMARY: NO MAJOR CHANGES OR SIGNIFICANT EVENTS OVERNIGHT. PT REMAINS INTUBATED AND SEDATED. RESPONDS TO PAINFUL STIMULI, DOES NOT MOVE ANY EXTREMITIES TO PAIN BUT DOES OPEN EYES AND GRIMACE. PERRLA @ 3. VENTILATOR SETTINGS ARE: 22/350/16/70%. PT DOES TAKE A LONGER TIME TO RECOVER AFTER A FULL BED BATH; HENCE THE INCREASE ON THE FIO2 OVERNIGHT. WEAK COUGH WITH SCANT SECRETIONS. BP AND HR REMAINS WNL. EDEMATOUS. AFEBRILE. PULSES ARE STRONG. RECTAL TUBE WAS REMOVED - NO BM SINCE REMOVAL. TF REMAINS UNCHANGED, RESIDUALS RANGED FROM 50 ML TO 60 ML. ROCHA REMAINS PATENT AND DRAINING TO GRAVITY. BACK WOUND WAS REDRESSED AND CLEANSED TONIGHT. CONCERN REGARDING PURULENT ODOR AND NO APPROPRIATE WOUND CARE ORDERS. Q2H TURNS WITH CEILING LIFT. INFUSIONS: FENTANYL SUPERVISOR SHIP MAINTENANCE SERVICES, PROPOFOL, HEPARIN, NORMAL SALINE
--- NOTE | 2021-09-26 09:24 | NUR ---
ASSUMPTION OF CARE PT INTUBATED, ON LIGHT SEDATION. OPENS EYES BUT DOES NOT MOVE EXTREMITIES OR FOLLOW COMMANDS. NO MOVEMENT TO PAIN. FIO2 INCREASED TO 70% FROM 60% THIS MORNING DUE TO DESATTING AFTER PT WAS TURNED. PEEP 16. TUBE FEED RUNNING AT GOAL. HEPARIN AT 13.
--- NOTE | 2021-09-26 18:03 | NUR ---
Review of pt in rounds will continue to follow. awaiting answer from [employer]
--- NOTE | 2021-09-26 19:18 | NUR ---
SHIFT SUMMARY O2 REQUIREMENTS SLOWLY INCREASED THROUGHOUT THE DAY. WITH EVERY TURN, FIO2 HAD TO BE TURNED UP. INCREASED TO 100% AROUND 1845, DR. OLVERA NOTIFIED. ORDERS TO INCREASE PEEP. PT LIGHTLY SEDATED, OPENS EYES BUT DOES NOT MOVE EXTREMITIES OR FOLLOW COMMANDS. NO BM. TUBE FEED FORMULA AND RATE CHANGED TODAY PER ORDER. WOUND ON BACK WAS CLEANSED AND REDRESSED TODAY. SEE ASSESSMENT FOR DETAILS.
[2021-09-27 03:54] LABS: Anion Gap 4 mmol/L (6-16); Blood Urea Nitrogen 51 mg/dL (8-24); Bun/Creatinine Ratio 78.9 (12.0-20.0); CO2, Blood 36 mmol/L (21-32); Calcium, Blood 8.5 mg/dL (8.5-10.1); Chloride, Blood 97 mmol/L (98-108); Creatinine, Blood 0.65 mg/dL (0.60-1.20); Glomerular Filtration Rate >60 (60-); Glucose, Blood 235 mg/dL (70-99); Phosphorus, Blood 3.8 mg/dL (2.5-4.9); Potassium, Blood 4.8 mmol/L (3.5-5.5); Sodium, Blood 137 mmol/L (136-145)
--- NOTE | 2021-09-27 06:48 | NUR ---
SHIFT SUMMARY: NEURO - Pt responds to painful stimuli with grimacing and eye opening. Unable to follow commands or localize pain on all extremities. Propofol was turned off at 0530, pt slowly waking up but still unable to track and follow any commands at the moment. Fent PROCESS IMPROVEMENT SPECIALIST remains infusing. PERRLA @ 3. RESP - Remains intuabted, overnight had small to moderate amount of red tinged secretions from the ETT. Vent settings are VC/AC 22/350/18/90%. Has a weak cough. O2 saturations remained above 90% overnight. CARDIAC - BP stable, NSR in the 80's. Afebrile. Edematous. GI/ - Residuals ranged from 100-150 mL. TF remains infusing. Hypoactive bowel sounds. No BM. UO adequate but more heriberto colored. INTEG - Back wound remains purulent and nonhealing, cleansed and changed dressing. Q2H turns with ceiling lift. Infusions: heparin, fent highway engineering teacher, normal saline.
--- NOTE | 2021-09-27 09:23 | NUR ---
0800 Assumed care Patient is intubated however slightly sedated with fentanyl, propofol is on standby since early this am. He is grimmacing to stimuli and tearful when his mom talks to him. He will flex his toes to plantar stimuli but is not moving his fingers or hands to stimuli or to command at this time. He remains restrainted while sedation is disappating. His tube feeding was replaced and set at goal of 70ml/hr with 30ml water flushes every 4 hrs. He has a wound on his back mid fold that is peeling and sluffing off. Wound care was done and dressing was changed. He was suctioned with scant light pink fluid suctioned out. He was repositioned to his right side at this time. Mother in room talking and praying with him.
--- NOTE | 2021-09-27 16:18 | NUR ---
Spiritual Care - "Things We Care to Know" Pt. is in bed and mostly non-responsive. Met with Pts. mother and filled out the "Things We Care to Know" survey implimented by Spiritual Care Dept.
[2021-09-28 03:23] LABS: BASOPHILS ABSOLUTE AUTO 0.01 K/mm3 (0.00-0.23); BASOPHILS PERCENT AUTO 0 % (0-2); EOSINOPHILS PERCENT AUTO 0 % (0-6); Hematocrit 40.1 % (37.0-53.0); Hemoglobin 12.4 g/dL (13.5-17.5); IMMATURE GRAN PERCENT AUTO 3 % (0-1); LYMPHOCYTES ABSOLUTE AUTO 0.33 K/mm3 (0.84-5.20); LYMPHOCYTES PERCENT AUTO 2 % (21-46); MONOCYTES PERCENT AUTO 8 % (4-13); Mean Corpuscular HGB 28.4 pg (26.0-34.0); Mean Corpuscular HGB Conc 30.9 g/dL (31.5-36.5); Mean Corpuscular Volume 92 fL (80-100); NEUTROPHILS ABSOLUTE AUTO 12.87 K/mm3 (1.96-9.15); NEUTROPHILS PERCENT AUTO 87 % (41-73); Platelet Count 416 K/mm3 (150-400); RDW Coefficient Variation 16.4 % (11.7-14.2); RDW Standard Deviation 55.4 fL (35.1-46.3); Red Blood Cell Count 4.36 M/mm3 (4.30-5.90); White Blood Cell Count 14.81 K/mm3 (4.00-11.30)
[2021-09-28 03:39] LABS: Anion Gap 3 mmol/L (6-16); Blood Urea Nitrogen 53 mg/dL (8-24); Bun/Creatinine Ratio 76.9 (12.0-20.0); CO2, Blood 37 mmol/L (21-32); Calcium, Blood 8.1 mg/dL (8.5-10.1); Chloride, Blood 98 mmol/L (98-108); Creatinine, Blood 0.69 mg/dL (0.60-1.20); Glomerular Filtration Rate >60 (60-); Glucose, Blood 181 mg/dL (70-99); Magnesium, Blood 2.9 mg/dL (1.6-2.4); Phosphorus, Blood 3.9 mg/dL (2.5-4.9); Potassium, Blood 4.5 mmol/L (3.5-5.5); Sodium, Blood 138 mmol/L (136-145)
--- NOTE | 2021-09-28 06:03 | NUR ---
SHIFT SUMMARY: NEURO - Pt starting wake up more, responds to verbal stimuli with eye opening. Still does not follow commands or move any extremities to painful stimuli. Has pretty severe nystagmus when eyes are open. PERRLA @ 3. Has Fent TRANSIT MANAGER infusion for pain. RESP - Remains intubated, VC/AC settings at 22/350/18/70%. Around 0500 pt was starting to wake up more, desaturating down to 88-89%, triggering the low volume alarm on ventilator - gave PRN Ativan to help with anxiety so pt can be more compliant with the ventilator. Moderate cough with scant clear/red tinged secretions from ETT. Concern regarding pt tolerating being awake due to ventilator alarming for low volume. Could use a different type of sedative to help with vent compliance. CARDIAC - BP slightly elevated. Afebrile. NSR with HR 80-90'S. Edematous throughout. GI/ - No BM overnight. Peña remains in place and patent. TF was paused due to high residuals but was resumed at 0000. INTEG - back wound cleansed and redressed tonight, nonhealing and purulent. q2h turns with the ceiling lift. Infusions - heparing, normal saline, fentanyl TRANSIT MANAGER.
--- NOTE | 2021-09-28 07:49 | NUR ---
ASSUME CARE: I have assumed care of this patient.
--- NOTE | 2021-09-28 18:51 | NUR ---
SHIFT SUMMARY: Propofol off all day. Two doses of PRN ativan given for anxiety. Vent settings currently AC/VC 22/350/18/65%. Blood tinged sputum obtained via inline suctioning. Heparin currently at 13. Tube feed residual under 200mls; tube feeds increased to 85mls/hr. UOP 1575 today; total fluid balance -348. Large liquid BM today. Wound on back was cleaned with wound cleaning spray and redressed with algenate, nonstick gauze, and abd pad. Pt's mother at bedside all day and supportive of pt. RN discussed trach with mother, Erna, today. She notes that her largest reservation is the possibilty to pt having to go to [facility] in [place]. Erna was educated on the indications of a trach and peg, why they are safer for patients compared ETT and OG, and the posibility for removal in the intermodal truck driver when no longer necessary.
--- NOTE | 2021-09-28 21:37 | NUR ---
ASSUMED CARE RECEIVED REPORT FROM JAMIE BRUNO AT 1900. PT IS INTUBATED AND SEDATED ONLY WITH FENTANYL AT 25MCG/HR. PRN LORAZEPAM AVAILABLE. HE OPENS EYES TO MOVEMENT AND VOICE, NO PURPOSEFUL MOVEMENTS OTHERWISE AND UNABLE TO FOLLOW COMMANDS. VENT IS AC/VC 22/350/18/65%, SPO2 90-92, HOWEVER HE DESATS WITH REPOSITIONING INTO UPPER 80'S AND IS SLOW TO RECOVER. GRIMACING WITH ORAL CARE. HR IS SR, RATE IN 70'S, NOTED TO HAVE A COUPLE SHORT RUNS OF V-TACH WITH REPOSITIONING AND BOOSTING, BUT RETURNED TO SR. BP STABLE, SBP IN 90-100'S. 2+ EDEMA IN UPPER AND LOWER EXTREMITIES. GLUCERNA 1.2 TUBE FEEDS AT GOAL OF 85ML/HR WITH Q4H H20 FLUSHES. BOWEL TONES ACTIVE X4. ROCHA PATENT, EMPTIED 1000 ML YELLOW, CLEAR URINE, DRAINING TO GRAVITY. HEPARIN GTT AT 13 UNITS/KG/HR, AND TKO INFUSING INTO LEODAN PICC. AFEBRILE. ORDERS REVIEWED, WILL TREAT PRESCRIBED.
[2021-09-29 03:40] LABS: BASOPHILS ABSOLUTE AUTO 0.03 K/mm3 (0.00-0.23); BASOPHILS PERCENT AUTO 0 % (0-2); EOSINOPHILS PERCENT AUTO 0 % (0-6); Hematocrit 39.7 % (37.0-53.0); Hemoglobin 12.6 g/dL (13.5-17.5); IMMATURE GRAN ABSOLUTE AUTO 0.43 K/mm3 (0.00-0.10); IMMATURE GRAN PERCENT AUTO 3 % (0-1); LYMPHOCYTES ABSOLUTE AUTO 0.31 K/mm3 (0.84-5.20); LYMPHOCYTES PERCENT AUTO 2 % (21-46); MONOCYTES ABSOLUTE AUTO 0.89 K/mm3 (0.16-1.47); MONOCYTES PERCENT AUTO 6 % (4-13); Mean Corpuscular HGB 29.3 pg (26.0-34.0); Mean Corpuscular HGB Conc 31.7 g/dL (31.5-36.5); Mean Corpuscular Volume 92 fL (80-100); Mean Platelet Volume 10.2 fL (9.1-12.4); NEUTROPHILS ABSOLUTE AUTO 13.92 K/mm3 (1.96-9.15); NEUTROPHILS PERCENT AUTO 89 % (41-73); Platelet Count 413 K/mm3 (150-400); RDW Coefficient Variation 16.8 % (11.7-14.2); RDW Standard Deviation 57.1 fL (35.1-46.3); White Blood Cell Count 15.58 K/mm3 (4.00-11.30)
[2021-09-29 03:59] LABS: Albumin, Blood 1.9 g/dL (3.4-5.0); Anion Gap 4 mmol/L (6-16); Blood Urea Nitrogen 49 mg/dL (8-24); Bun/Creatinine Ratio 75.5 (12.0-20.0); CO2, Blood 37 mmol/L (21-32); Calcium, Blood 8.1 mg/dL (8.5-10.1); Chloride, Blood 98 mmol/L (98-108); Creatinine, Blood 0.65 mg/dL (0.60-1.20); Glomerular Filtration Rate >60 (60-); Glucose, Blood 233 mg/dL (70-99); Magnesium, Blood 2.8 mg/dL (1.6-2.4); Phosphorus, Blood 3.7 mg/dL (2.5-4.9); Potassium, Blood 4.6 mmol/L (3.5-5.5); Sodium, Blood 139 mmol/L (136-145)
--- NOTE | 2021-09-29 06:32 | NUR ---
PT REMAINS INTUBATED AND SEDATED WITH FENTANYL ONLY. NO LORAZEPAM GIVEN THIS SHIFT. HE CONTINUES TO OPEN HIS EYES WITH REPOSITIONING, ORAL CARE, AND TO VOICE. NO PURPOSEFUL MOVEMENTS. VENT SETTINGS UNCHANGED, AC/VC 22/350/18/65%. HE CONTINUES TO HAVE SMALL AMOUNTS OF THIN, RED STREAKED SECRETIONS WITH ETT SUCTIONING. HR REMAINED IN SR WITH THE EXEPTION OF THE 3 BRIEF RUNS OF V-TACH AT THE BEGINNING OF SHIFT. RATE CURRENTLY IN 60'S. BP STABLE. HEPARIN GTT REMAINS AT 13 UNITS/KG/HR PER PHARMACY. TUBE FEED CONTINUES AT 85ML/HR, RESIDUALS LESS THAN 200 THROUGHOUT SHIFT. NO BOWEL MOVEMENT THIS SHIFT. ROCHA PATENT, DRAINED 1750ML OUT. Q2H TURNS FOR SKIN INTEGRITY. WILL REPORT TO ONCOMING SHIFT WHEN AVAILABLE.
--- NOTE | 2021-09-29 07:00 | NUR ---
ASSUME CARE: I have assumed care of this patient.
--- NOTE | 2021-09-29 18:50 | NUR ---
SHIFT SUMMARY: Pt received two 1mg doses of PRN ativan today. Fentanyl still running at 25mcg/hr. No propofol today. Vent settings AC/VC 22/350/18/65%. Minimal residual from OG tube. WBC increased; sputum culture obtained. Long acting insulin increased to 60 units. UOP 1745; fluid balance -378. Mother at bedside with her cousin inessa. community relations coordinator and patient advocate discussed visitation with pt's mother today; pt meets the requirements for senate bill [id number] and may have a support person 15/01 per nurse photo lab manager.
--- NOTE | 2021-09-29 20:55 | NUR ---
ASSUMED CARE OF CYRIL AT 1900, HIS MOTHER AND AUNT WERE IN THE ROOM. VENT HAD BEEN ALARMING FOR QUITE SOME TIME, CIRCUIT CHECKED, VENTILATION ASSESSED, SATS 94%, SUCTIONED. PT BREATHING EASY AND NON LABORED, LUNGS CLEAR BUT DIMINISHED, SLIGHTLY COARSE IN THE UPPER LOBES, SUCTION RETURNS RED TINGE, SKIN CARE PER- FORMED, EYE CARE, FACE CLEANING, CATH CARE. FAMILY LEFT, ORAL CARE, MEDS AND REPOSITIONED. TOLERATED WELL, BREATHING CONTINUES EVEN AND UNLABORED. DUMP TRUCK DRIVER OFF HIGHWAY FENT @ 25MCG/HR, HEPARIN @ 13U/KG/HR, TKO INFUSING. RESIDUAL 220ML. OPENS EYES TO NAME. NO SPONTANEOUS MOVEMENTS NOTED.
--- NOTE | 2021-09-30 00:29 | NUR ---
CYRIL CONTINUES TO OPEN HIS EYES TO VOICE, DOES NOT FOLLOW COMMANDS. FIO2 DOWN TO 60% EARLY IN THE SHIFT. CONTINUES WITH RED TINGED RETURN ON ETT SUCT TUBE FEEDING CONTINUES, CHANGED TO NEW BOTTLE OF GLUCERNA 1.2 @ 85ML/HR. HEPARIN GTT CONTINUES @ 13U/KG. ORAL CARE DONE, TOLERATES WELL. REPOSITIONED.
--- NOTE | 2021-09-30 04:10 | NUR ---
CYRIL REMAINS WITHOUT ANY PURPOSEFUL MOVEMENTS, NO RESISTANCE OR PASSIVE MOTION. RESTRAINTS HAVE BEEN LEFT OFF. HE WAKENS TO VOICE, HE WON'T FOCUS ON ME, HE HAS NYSTYGMUS WHEN ATTEMPTING TO LOOK TO THE LEFT. DOESN'T FOLLOW MY VOICE. TOLERATED SKIN CARE, LOTION, CLEANING, POWDERING, WITHOUT INCIDENT. HANDS, FEET AND SCROTUM EDEMATOUS.
[2021-09-30 04:17] LABS: Hematocrit 40.3 % (37.0-53.0); Hemoglobin 12.7 g/dL (13.5-17.5); Mean Corpuscular HGB 29.2 pg (26.0-34.0); Mean Corpuscular HGB Conc 31.5 g/dL (31.5-36.5); Mean Corpuscular Volume 93 fL (80-100); Mean Platelet Volume 10.8 fL (9.1-12.4); Platelet Count 356 K/mm3 (150-400); RDW Coefficient Variation 17.2 % (11.7-14.2); RDW Standard Deviation 56.9 fL (35.1-46.3); Red Blood Cell Count 4.35 M/mm3 (4.30-5.90); White Blood Cell Count 17.62 K/mm3 (4.00-11.30)
[2021-09-30 04:39] LABS: Alanine Aminotransfer (ALT/SGP 40 U/L (12-78); Albumin/Globulin Ratio 0.5 (0.8-1.8); Alk Phos 164 U/L (50-136); Anion Gap 5 mmol/L (6-16); Aspartate Aminotrans (AST/SGOT 88 U/L (12-37); Bilirubin, Total 0.7 mg/dL (0.1-1.0); Blood Urea Nitrogen 55 mg/dL (8-24); Bun/Creatinine Ratio 76.8 (12.0-20.0); CO2, Blood 37 mmol/L (21-32); Calcium, Blood 8.3 mg/dL (8.5-10.1); Chloride, Blood 98 mmol/L (98-108); Creatinine, Blood 0.72 mg/dL (0.60-1.20); Glomerular Filtration Rate >60 (60-); Glucose, Blood 195 mg/dL (70-99); Phosphorus, Blood 3.9 mg/dL (2.5-4.9); Potassium, Blood 4.6 mmol/L (3.5-5.5); Sodium, Blood 140 mmol/L (136-145)
[2021-09-30 05:24] LABS: BAND PERCENT MAN 9 % (0-8); BASOPHILS PERCENT MAN 0 % (0-2); EOSINOPHILS PERCENT MAN 0 % (0-6); LYMPHOCYTES ABSOLUTE MAN 0.35 K/mm3 (0.84-5.20); LYMPHOCYTES PERCENT MAN 2 % (21-46); MONOCYTES ABSOLUTE MAN 0.52 K/mm3 (0.16-1.47); MONOCYTES PERCENT MAN 3 % (4-13); NEUTROPHILS ABSOLUTE MAN 16.73 K/mm3 (1.96-9.15); SEG NEUTROPHILS PERCENT MAN 86 % (41-73); TOTAL CELLS COUNTED 100
--- NOTE | 2021-09-30 06:26 | NUR ---
CYRIL REMAINS INTUBATED, VENT SETTINGS VC+ 22/350/18/60%. TOLERATING WELL, SUCTION RETURNS BLOOD TINGED BUT LESS BRIGHT THAN START OF SHIFT. HEPARIN GTT REMAINS AT 13U/KG, FENTANYL @ 25MCG/HR, AND TKO. ROCHA WITH GOOD OUTPUT, DARK YELLOW. NO BM. REPOSITIONED Q2, ORAL CARE DONE, RESTRAINTS REMOVED WITH NO MOVEMENT NOTED. EYES CONTINUE WITH NYSTYGMUS WHEN TRYING TO LOOK LEFT. NOT FOLLOWING COMMANDS. RESTING BETWEEN INTERRUPTIONS. NO FURTHER CHANGES.
--- NOTE | 2021-09-30 07:58 | NUR ---
ASSUMED CARE OF PATIENT 0700: FENT 25MCG/HR, PUPILS 4MM BRISK, DOES NOT TRACK, PAIN RESPONSE CENTRAL ONLY, NOT FOLLOWING COMMANDS, NSR 80S, BP STABLE, HEPARIN AT 13 UNIT/HR, LUNG CLEAR/DIM SOME COARSNESS UPPER DIOR, ROCHA DRAINING TO GRAVITY, VENT SETTINGS ACVC 22/350/18/60, SOME BLOOD TINGED SPUTUM W/ IN LINE SUCTION NOT NEW, WILL CONTINUE TO MONITOR.
--- NOTE | 2021-09-30 18:17 | NUR ---
FENT 25MCG/HR, DOES NOT FOLLOW COMMANDS, NOT TRACKING, OPENS EYES SPONTANEOUSLY, MINIMAL CENTRAL PAIN WITHDRAW, PUPILS 4MM BRISK, NSR 70/80S, BP WNL, TF RESIDUAL MINIMAL 40-50MLS, ABDOMEN FIRM/DISTENDED, HYPOACTIVE BOWELS, LUNGS CLEAR/DIM, SOME COARSNES UPPER DIOR, ABLE TO BRING DOWN FIO2 TO 50% AND PEEP TO 16, SATS >88, BLOOD TINGED SPUTUM REMAINS SMALL AMOUNT, COUGH W/ IN LINE SUCTION, ROCHA ADEQUATE UOP ORANGE/TORIBIO, CBGS MID 150S W/ CURRENT INSULIN PROTOCOL, WILL CONTINUE TO MONITOR AND REPORT TO NIGHT RN.
--- NOTE | 2021-09-30 21:00 | NUR ---
Assumed care. [place] opened his eyes to verbal stimuli. Tracked towards voices. Attempted to culturist his aunt's hand. Wiggled toes and flexion withdrawl. He nodded his head no in response to oral care. Smiled and responded well to family. Got very tearful off and on with the amount of stimulis. Mother and Aunt decided to go home for the night as he was getting worked up. Currently is now resting back down. On fentanyl 25mcq/hr for light sedation. MARGARITA. Afebrile. Lung sounds course, diminished in bases. AC/VC vent settings 22/350/16/50%. Sats >88%. ETCO2 40's. Suction results with red thick secertions. Sinus on the monitor, generalized edema all over. Abdomin obese, distended, firm, last BM was on the 5th. OG with TF infusing at goal 85ml/hr. Residual 160ml bile/formula. Catheter remains patent and draining clear yellow. Wound care completed on left back skinfold. Cleansed, applied xeroform and abd, secured with tape. Wound bed shallow, pink, with sanguous drainage. redness in panus, powder was applied. Other gtts: Heparin @ 13units/kg/hr. NS @ TKO.
[2021-10-01 06:29] LABS: BASOPHILS ABSOLUTE AUTO 0.02 K/mm3 (0.00-0.23); BASOPHILS PERCENT AUTO 0 % (0-2); EOSINOPHILS PERCENT AUTO 0 % (0-6); Hematocrit 40.2 % (37.0-53.0); Hemoglobin 12.7 g/dL (13.5-17.5); IMMATURE GRAN ABSOLUTE AUTO 0.63 K/mm3 (0.00-0.10); IMMATURE GRAN PERCENT AUTO 3 % (0-1); LYMPHOCYTES ABSOLUTE AUTO 0.33 K/mm3 (0.84-5.20); LYMPHOCYTES PERCENT AUTO 2 % (21-46); MONOCYTES PERCENT AUTO 5 % (4-13); Mean Corpuscular HGB 29.3 pg (26.0-34.0); Mean Corpuscular HGB Conc 31.6 g/dL (31.5-36.5); Mean Corpuscular Volume 93 fL (80-100); Mean Platelet Volume 10.5 fL (9.1-12.4); NEUTROPHILS ABSOLUTE AUTO 16.53 K/mm3 (1.96-9.15); NEUTROPHILS PERCENT AUTO 90 % (41-73); Platelet Count 373 K/mm3 (150-400); RDW Coefficient Variation 17.3 % (11.7-14.2); RDW Standard Deviation 58.1 fL (35.1-46.3); Red Blood Cell Count 4.34 M/mm3 (4.30-5.90); White Blood Cell Count 18.41 K/mm3 (4.00-11.30)
--- NOTE | 2021-10-01 06:42 | NUR ---
Shift Summary: Chapincito was very responsive off and on tonight. At start of shift he was tracking to noise, his name and to family's voice. He nodded to questions, wiggles feet, moved BLE, smiles and started to cry even. He did get over stimulated so family went home. As the night went on, he still responded but more lightly with no movement of the hands but still had grimiacing, tracking, and movement of his feet. He just wound fall right back to sleep. Good gag, swallow, and cough noted. LS coarse with diminished bases. AC/VC vent settings remained at 22/350/16/45%. ETCO2 remained 35-40. Sats remained >87%. Secretions small amount of red via ETT tube, white frothy from oral. Sinus on monitor, rate in the 70's. BP stable. Heparin continues at 13 units/kg/hr. BUE and BLE edema dependent. Peña remains patent with sand like sediment in bag. Redness in skin folds have improved. Wound to right mid back skin fold, drainage large sangous in color. New dressings applied. Fentanyl 25mcq remain in place for light sedation. Will repeat to dayshift.
[2021-10-01 06:44] LABS: Albumin, Blood 1.9 g/dL (3.4-5.0); Anion Gap 6 mmol/L (6-16); Blood Urea Nitrogen 50 mg/dL (8-24); Bun/Creatinine Ratio 76.2 (12.0-20.0); CO2, Blood 36 mmol/L (21-32); Calcium, Blood 8.4 mg/dL (8.5-10.1); Chloride, Blood 98 mmol/L (98-108); Creatinine, Blood 0.66 mg/dL (0.60-1.20); Glomerular Filtration Rate >60 (60-); Glucose, Blood 188 mg/dL (70-99); Magnesium, Blood 2.8 mg/dL (1.6-2.4); Phosphorus, Blood 3.8 mg/dL (2.5-4.9); Potassium, Blood 4.6 mmol/L (3.5-5.5); Sodium, Blood 140 mmol/L (136-145)
--- NOTE | 2021-10-01 07:50 | NUR ---
ASSUMED CARE 0700: FOLLOWS SOME COMMANDS, PUPILS 4MM BRISK, CALM, FENT AT 25MCG/HR, NSR 80S, BP WNL, 16PEEP/60% VCAC, BLOOD TINGED SPUTUM REMAINS SMALL AMOUNT, LUNGS CLEAR/DIM, ROCHA DRAINING ADEQUATE UOP TO GRAVITY, TF GOAL 85ML/HR, HEPARIN AT 13 UNIT/HR, WILL CONTINUE TO MONITOR.
--- NOTE | 2021-10-01 17:51 | NUR ---
MORE ALERT THIS SHIFT, FOLLOWING MORE COMMANDS, PUPILS 4MM BRISK, ABLE TO NOD YES/NO, LUNGS CLEAR/DIM, TOLERATED SPONT IN AM FOR 1 HR, OTHERWISE VCAC 22/350/16/60, BLOOD TINGED SPUTUM REMAINS, NSR 80S, BP WNL, HEPARIN REMAINS 13 UNITS/HR, NO BM SINCE 5TH, BISCODYL GIVEN WITH NO RESULTS, ROCHA ADEQUATE UOP TORIBIO, L BACK WOUND CLEANSED SOAP/WATER/CLEANSER DRESSED WITH XEROFORM/ABD PAD/SURGICAL TAPE, WILL CONTINUE TO MONITOR AND REPORT TO NIGHT RN.
--- NOTE | 2021-10-01 19:49 | NUR ---
ASSUMED CARE OF CYRIL, UPON ENTERING ROOM HE OPENS HIS EYES AND LOOKS TO MY VOICE. 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 HE IS ON THE VENTILATOR, AC 22/350/16/60%, SATS 88%. HE IS SUCTIONED WITH MINIMAL RETURN, THOUGH BLOOD TINGED. ROCHA TO GRAVITY DRAINAGE WITH YELLOW RETURN, CLEAR IN THE TUBING, ABD SOFT, BOWEL TONES ACTIVE, EDEMA REMAINS IN HANDS AND FEET, WELL SCROTUM. HIS EYELIDS ARE HEAVY BUT CONTINUES TO TRY TO COM- MUNICATE WHEN SPOKEN WITH. MOTHER AT HIS SIDE, PREPARING TO LEAVE. REPOSITIONED IN THE BED.
--- NOTE | 2021-10-01 20:30 | NUR ---
PT HAD BM, LIQUID BROWN, DARK. PT TURNED AND CLEANED, LEFT BACK WOUND CLEANED AND REDRESSED. PURPLE OUTLINES, SLOUGHING SKIN, PINK UNDERNEATH. PT GRIMACING WITH TURNING AND CLEANING. SCROTAL SACK NOTED TO HAVE BEGINNING OF BREAKDOWN WELL. PT REPOSITIONED, NODDED HEAD THAT HE WAS "GOOD" WHEN CARE COMPLETED.
[2021-10-02 04:38] LABS: BASOPHILS ABSOLUTE AUTO 0.02 K/mm3 (0.00-0.23); BASOPHILS PERCENT AUTO 0 % (0-2); EOSINOPHILS PERCENT AUTO 0 % (0-6); Hematocrit 38.6 % (37.0-53.0); Hemoglobin 12.2 g/dL (13.5-17.5); IMMATURE GRAN ABSOLUTE AUTO 0.54 K/mm3 (0.00-0.10); IMMATURE GRAN PERCENT AUTO 4 % (0-1); LYMPHOCYTES ABSOLUTE AUTO 0.21 K/mm3 (0.84-5.20); LYMPHOCYTES PERCENT AUTO 1 % (21-46); MONOCYTES ABSOLUTE AUTO 0.87 K/mm3 (0.16-1.47); MONOCYTES PERCENT AUTO 6 % (4-13); Mean Corpuscular HGB 29.5 pg (26.0-34.0); Mean Corpuscular HGB Conc 31.6 g/dL (31.5-36.5); Mean Corpuscular Volume 94 fL (80-100); Mean Platelet Volume 11.1 fL (9.1-12.4); NEUTROPHILS ABSOLUTE AUTO 13.68 K/mm3 (1.96-9.15); NEUTROPHILS PERCENT AUTO 89 % (41-73); Platelet Count 322 K/mm3 (150-400); RDW Coefficient Variation 17.4 % (11.7-14.2); RDW Standard Deviation 58.8 fL (35.1-46.3); Red Blood Cell Count 4.13 M/mm3 (4.30-5.90); White Blood Cell Count 15.32 K/mm3 (4.00-11.30)
[2021-10-02 04:58] LABS: Albumin, Blood 1.9 g/dL (3.4-5.0); Anion Gap 4 mmol/L (6-16); Blood Urea Nitrogen 50 mg/dL (8-24); Bun/Creatinine Ratio 77.6 (12.0-20.0); CO2, Blood 38 mmol/L (21-32); Calcium, Blood 8.2 mg/dL (8.5-10.1); Chloride, Blood 98 mmol/L (98-108); Creatinine, Blood 0.64 mg/dL (0.60-1.20); Glomerular Filtration Rate >60 (60-); Glucose, Blood 158 mg/dL (70-99); Magnesium, Blood 2.8 mg/dL (1.6-2.4); Phosphorus, Blood 4.1 mg/dL (2.5-4.9); Potassium, Blood 4.5 mmol/L (3.5-5.5); Sodium, Blood 140 mmol/L (136-145)
--- NOTE | 2021-10-02 06:09 | NUR ---
CYRIL CONTINUES ON THE VENT, RATE 350/16/60%. SATS 91%. TF GLUCERNA @ 85ML/HR LAST RESIDUAL <50ML. PICC WITH HEPARIN 13U/KG/HR, FENTANYL @ 25MCG/HR, KVO @ 10ML/HR. ABD SOFT, ROCHA TO GRAVITY DRAINAGE, TORIBIO COLORED, ODIFEROUS. FEET/HANDS REMAIN EDEMATOUS. HE CONTINUES TO NOD AND SHAKE HEAD TO ANSWERS, TRIES TO FOLLOW COMMANDS TO HIS UNDERSTANDING, TEARFUL AT TIMES. TURNED AND REPOSITIONED Q2, BATH COMPLETED, WOUND CARE TO LEFT BACK. NOTHING FURTHER, WILL CONTINUE TO MONITOR AND REPORT OFF TO NEXT SHIFT WHEN AVAILABLE.
--- NOTE | 2021-10-02 09:28 | NUR ---
CARE OF PT ASSUMED AT 0700. PT SEDATED ON FENTANYL GTT AT 25MCG/HR FOR MECH VENT EMILY. AC22/350/16/60%. PT OPENS EYES TO VOICE, TRACKS WITH EYES, AND NODS HEAD YES, BUT DOES NOT NOD HEAD NO. TOES MOVE NOT BY COMMAND BUT BY TICKLING FEET. NO MOVEMENT NOTED TO HANDS/FINGERS. PT IS VERY DROWSY AND FALLS ASLEEP WITHIN SECONDS OF OPENING EYES TO VOICE. PT'S MOTHER AT BEDSIDE THIS AM AND GIVEN UPDATE. DR DENTON IN THIS AM; WILL NOT PLACE PT ON SPONT UNTIL MORE AWAKE. ENT TO BE CONSULTED FOR TRACH. TUBE FEEDS AT GOAL W MINIMAL RESIDUAL. HEP GTT AT 13UNITS.
--- NOTE | 2021-10-02 11:09 | NUR ---
PT TURNED FOR WOUND CARE WITH 3 RN'S AND 1 RACK WASHER. WOUND TO LEFT BACK CREASE CLEANED, DRSG CHANGED. WOUND WET WITH FOUL SMEELING DARK SKIN SLOUGHING NOTED TO ENTIRE AREA. SOME MILD BLEEDING TO SHALLOW WOUND BED. ALGINATE SHEETS PLACED TO WOULD TO FACILITATE DEBRIDEMENT AND TO HELP DECREASE EXCESSIVE MOISTER TO AREA. MEXTRA SUPERABSORBENT PAD PLACED OVER THE TOP OF WOUND AND SECURED W MEDIPORE TAPE. PENIS HAS CREAM COLORED THIN DISCHARGE. OPEN SKIN TO POSTERIOR SCROTUM NOTED AND IS LEAKING LARGE AMT OF SEROUS FLUID. ANOTHER SUPERABSORBANT PAD PLACED UNDER SCROTUM WITH SLING. OTHER SKIN FOLDS CLEAN AND DRY WITH POWDER AND PILLOW CASES TUCKED. PT APPEARS TO BE IN REM WITH EYES OPEN. DOES NOT TRACK OR RESPOND TO VOICE. EYES OPEN AND MOVING IN RAPID MOVEMENT/NYSTAGMUS, PT SMILES THEN FROWNS, MOUTH SUCKLING. WHEN GIVEN LIGHT STERNAL RUB PT APPEARS TO WAKE MOMENTARILY WITH AGITATED FACE THEN RESUMES WITH PREVIOUS DESCRIPTION. DR DENTON GIVEN FULL UPDATE.
--- NOTE | 2021-10-02 15:58 | NUR ---
PT DESATURATED TO 86% DESPITE BEING ON 100% FIO2. RT AT BEDSIDE. PT BOOSTED TO TOP OF BED AND PLACED ON FAR LEFT SIDE USING LIFT, DURING THIS REPOSITION PT COUGHED UP 2 LARGE BLOODY MUCUS PLUGS. SATS NOW IMPROVED ON 70% FIO2. PT NODS HEAD AT TIMES WITH CARE BUT DOES NOT ALWAYS SEEM PURPOSEFUL. PT HAS NOT SHOWN ANY ABILITY TO FOLLOW COMMANDS THIS SHIFT. PT DOES NOT APPEAR TO ENGAGE WITH FACIAL EXPRESSIONS/EYE CONTACT DURING INTERACTIONS. LUNGS NOW COARSE TO UPPER LOBES. PT SHAVED. NO OTHER CHANGES.
--- NOTE | 2021-10-02 17:09 | NUR ---
PT DESATURATED DOWN TO 85%. RT CALLED. PT SUCTIONED, VERY LITTLE SPUTUM. PT BOOSTED UP IN BED. SATS RETURNED TO 88-90%. DR DENTON NOTIFIED. STAT CHEST XRAY ORDERED AND COMPLETED. PT DID APPEAR MORE AGITATED, TURNING HEAD FROM SIDE TO SIDE, RESP RATE 20-35, HR ELEVATED TO 110. PT NOW CALM AGAIN, PT'S MOTHER AT BEDSIDE AND UPDATED.
--- NOTE | 2021-10-02 18:53 | NUR ---
SOON AFTER CHEST XRAY TAKEN PT REQUIRED EMERGENT BRONCHOSCOPY. HEPARIN STOPPED AT [address] DENTON. BRONCH STARTED AT 1725. PROPOFOL AT 10MCG STARTED AT 1727 FOR BRONCH ONLY AND DC'D AFTER PROCEDURE. A TOTAL OF 2CC INFUSED. SATS DROPPED MOMENTARILY TO 85% DURING BRONCH AND QUICKLY CAME UP TO 94%. 4CC OF LIDO TOTAL GIVEN DOWN BRONCH BY DR DENTON. BAL SENT, BRONCH ENDED AT 1737. PT TOLERATED PROCEDUE WELL. PEEP INCREASED TO 18. SATS NOW 95%. DR DENTON UPDATED PT'S MOTHER. PT APPEARS MORE COMFORTABLE AT THIS TIME.
--- NOTE | 2021-10-02 19:15 | NUR ---
ASSUMPTION OF CARE PT REMAINS INTUBATED WITH SETTINGS AC/VC+ 22/350/16/90%. HE IS RECEIVING FENTANYL 25MCG/HR AND NS TKO. HE OPENS EYES TO VERBAL STIMULATION AND TRACKS MOVEMENTS. ROCHA PATENT AND DRAINING TO GRAVITY. VSS AT THIS TIME. FAMILY AT [facility]. SEE SHIFT ASSESSMENT.
--- NOTE | 2021-10-03 02:53 | NUR ---
WOUND CARE DRESSING ON BACK REMOVED. PT HAS LARGE AREA ON THE LEFT SIDE OF HIS BACK IN SKIN FOLD THAT IS DARK MATUTE/BLACK IN THE CENTER SURROUNDED BY REDDENED BROKE DOWN TISSUE. CLEAR EXUDATE, SOME BLEEDING AROUND EDGES AND FOUL ODOR NOTED. AREA CLEANSED THEN APPLIED SKINTEGRITY AND CALCIUM ALGINATE WITH ABDOMINAL PADS AND SMALL AMOUNT OF TAPE USED TO KEEP IN PLACE. SURROUNDING TISSUE IS REDDENED FROM PREVIOUS TAPE. 3 SMALL FRICTION RIGO ON POSTERIOR SCROTUM. AREA CLEANSED AND SKINTEGRITY APPLIED. SKIN BREAKDOWN NOTED IN INTERGLUTEAL CLEFT. AREA CLEANSED AND DRIED.
--- NOTE | 2021-10-03 05:18 | NUR ---
SHIFT SUMMARY PT REMAINS INTUBATED WITH VENT SETTINGS AC/VC+ 22/350/18/90%. HE IS RECEIVING FENTANYL 25MCG/HR AND NS TKO. HE OPENS EYES SPONTANEOUSLY, CONTINUES TO TRACK MOVEMENTS. OCCASIONALLY SMILES AND GRIMACES, CLENCHES MOUTH DURING ORAL CARE. HE NODS HEAD YES BUT IS UNABLE TO SHAKE HEAD NO. SMALL UPPER EXTREMITY MOVEMENTS BUT DOES NOT SQUEEZE HANDS. HE DOES MAKE SMALL FOOT MOVEMENTS WITH STIMULATION. TUBE FEEDING INFUSING VIA OGT AT GOAL RATE. ROCHA PATENT AND DRAINING ADEQUATE AMOUNT OF URINE. SEE NOTE REGARDING WOUND CARE. VSS THROUGHOUT SHIFT. WILL REPORT TO ONCOMING RN.
[2021-10-03 05:38] LABS: BASOPHILS ABSOLUTE AUTO 0.01 K/mm3 (0.00-0.23); BASOPHILS PERCENT AUTO 0 % (0-2); EOSINOPHILS PERCENT AUTO 0 % (0-6); Hematocrit 38.8 % (37.0-53.0); Hemoglobin 12.2 g/dL (13.5-17.5); IMMATURE GRAN ABSOLUTE AUTO 0.35 K/mm3 (0.00-0.10); IMMATURE GRAN PERCENT AUTO 3 % (0-1); LYMPHOCYTES ABSOLUTE AUTO 0.18 K/mm3 (0.84-5.20); LYMPHOCYTES PERCENT AUTO 2 % (21-46); MONOCYTES ABSOLUTE AUTO 0.81 K/mm3 (0.16-1.47); MONOCYTES PERCENT AUTO 7 % (4-13); Mean Corpuscular HGB 29.5 pg (26.0-34.0); Mean Corpuscular HGB Conc 31.4 g/dL (31.5-36.5); Mean Corpuscular Volume 94 fL (80-100); Mean Platelet Volume 10.4 fL (9.1-12.4); NEUTROPHILS PERCENT AUTO 89 % (41-73); NRBC ABSOLUTE 0.02 K/mm3 (0.00-0.02); NRBC Auto 0.2 /100 WBC (0.0-0.2); Platelet Count 275 K/mm3 (150-400); RDW Coefficient Variation 17.8 % (11.7-14.2); RDW Standard Deviation 60.8 fL (35.1-46.3); Red Blood Cell Count 4.14 M/mm3 (4.30-5.90); White Blood Cell Count 12.05 K/mm3 (4.00-11.30)
[2021-10-03 05:59] LABS: Anion Gap 3 mmol/L (6-16); Blood Urea Nitrogen 55 mg/dL (8-24); Bun/Creatinine Ratio 84.4 (12.0-20.0); CO2, Blood 38 mmol/L (21-32); Calcium, Blood 8.4 mg/dL (8.5-10.1); Chloride, Blood 101 mmol/L (98-108); Creatinine, Blood 0.65 mg/dL (0.60-1.20); Glomerular Filtration Rate >60 (60-); Glucose, Blood 173 mg/dL (70-99); Potassium, Blood 4.4 mmol/L (3.5-5.5); Sodium, Blood 142 mmol/L (136-145)
--- NOTE | 2021-10-03 07:30 | NUR ---
ASSUMPTION OF CARE RECEIVED REPORT FROM PACHECO AYALA. ASSUMED CARE OF PATIENT. PATIENT INTUBATED WITH VENT SETTINGS AC 22/350/18/90%. SP02 ABOVE 95%. RT SUCTIONED RED THICK SPUTUM VIA ETT, DR. DENTON TO BEDSIDE AND EVALUATED STATING THIS WAS EXPECTED AFTER BRONCH THAT OCCURRED YESTERDAY. OG WITH GLUCERNA TF AT 85ML/HR. FENTANYL CONTINUOUS POWERHOUSE TENDER AT 25MCG/HR INFUSING VIA PICC. WOUND NOTED TO BACK SKIN FOLD WITH DRESSING, REMOVED DRESSING TO ASSESS WITH NO ACUTE CHANGES FROM PREVIOUS PICTURE. REDDENED AREA TO BUTTOCKS AND SCROTUM. ROCHA CATHETER PATENT AND DRAINING YELLOW URINE. WILL REVIEW ORDERS AND TREAT PRESCRIBED.
--- NOTE | 2021-10-03 18:49 | NUR ---
SHIFT SUMMARY PATIENT REMAINED INTUBATED. TITRATED FI02 TO 70% WITH SP02 AT 94%. PATIENT ALERT, FOLLOWING COMMANDS, NODDING HEAD YES AND NO APPROPRIATELY TO QUESTIONS. OG WITH TF AT GOAL OF 85ML/HR WITH MINIMAL RESIDUALS REFED. ONE BROWN, SOFT BM NOTED AFTER SUPPOSITORY WAS GIVEN. ROCHA REMAINED PATENT AND DRAINING CLEAR, YELLOW URINE. FENTANYL AT 25MCG/HR, PATIENT SHAKES HEAD NO WHEN ASKED IF HE HAS PAIN AND NODS HEAD YES WHEN ASKED IF HE IS COMFORTABLE. MOTHER TO BEDSIDE THROUGHOUT SHIFT. DR. DENTON LEFT MESSAGE WITH ENT OFFICE, AWAITING CONSULT AT THIS TIME FOR POTENTIAL TRACH. WILL CONTINUE TO MONITOR AND REPORT TO ONCOMING RN.
[2021-10-04 03:59] LABS: BASOPHILS ABSOLUTE AUTO 0.02 K/mm3 (0.00-0.23); BASOPHILS PERCENT AUTO 0 % (0-2); EOSINOPHILS PERCENT AUTO 0 % (0-6); Hematocrit 38.5 % (37.0-53.0); Hemoglobin 12.1 g/dL (13.5-17.5); IMMATURE GRAN ABSOLUTE AUTO 0.25 K/mm3 (0.00-0.10); IMMATURE GRAN PERCENT AUTO 2 % (0-1); LYMPHOCYTES ABSOLUTE AUTO 0.13 K/mm3 (0.84-5.20); LYMPHOCYTES PERCENT AUTO 1 % (21-46); MONOCYTES PERCENT AUTO 7 % (4-13); Mean Corpuscular HGB 29.5 pg (26.0-34.0); Mean Corpuscular HGB Conc 31.4 g/dL (31.5-36.5); Mean Corpuscular Volume 94 fL (80-100); Mean Platelet Volume 10.8 fL (9.1-12.4); NEUTROPHILS PERCENT AUTO 90 % (41-73); Platelet Count 248 K/mm3 (150-400); RDW Coefficient Variation 17.7 % (11.7-14.2); RDW Standard Deviation 60.3 fL (35.1-46.3)
[2021-10-04 04:12] LABS: International Normalized Ratio 1.12; Prothrombin Time Results 11.7 Sec (9.7-11.5)
[2021-10-04 04:19] LABS: Anion Gap 3 mmol/L (6-16); Blood Urea Nitrogen 52 mg/dL (8-24); CO2, Blood 40 mmol/L (21-32); Calcium, Blood 8.4 mg/dL (8.5-10.1); Chloride, Blood 101 mmol/L (98-108); Creatinine, Blood 0.57 mg/dL (0.60-1.20); Glomerular Filtration Rate >60 (60-); Glucose, Blood 202 mg/dL (70-99); Potassium, Blood 4.3 mmol/L (3.5-5.5); Sodium, Blood 144 mmol/L (136-145)
--- NOTE | 2021-10-04 07:13 | NUR ---
SHIFT SUMMARY: PT ALERT AND ABLE TO FOLLOW COMMANDS THROUGHOUT THE NIGHT. PT'S MOM WAS AT BEDSIDE UNTIL 2200 AND SHE WAS VERY HELPFUL WITH PATIENT CARE. MOM ALSO ABLE TO HELP COMMUNICATE PATIENT'S NEEDS. REMAINS UNRESTRAINED AND PT NOT DISPLAYING BEHAVIOR THAT WOULD INFLICT INJURY SUCH SELF EXTUBATION. NO SIGNS OF PAIN OR DISTRESS OVERNIGHT. REMAINS INTUBATED, SETTINGS ARE VC/AC 22/350/18/70%. SCANT RED TINGED SCRETIONS THROUGH ETT SUCTIONING. LUNG SOUNDS ARE DIMINISHED. BP STABLE, IN NORMAL SINUS RHYTHM WIHT HEART RATE IN THE 70's. EDEMATOUS. AFEBRILE. TF REMAINS INFUSING AT GOAL RATE. MINIMAL RESIDUALS. 1X BM OVERNIGHT. ROCHA REMAINS PATENT. Q2H TURNS WITH CEILING LIFT. PATIENT'S STARTING TO HAVE MORE SKIN BREAKDOWN. SCROTUM EDEMATOUS AND HAVE SKIN SHEERING, PILLOW CASE SLING IN PLACE AND BARRIER CREAM. BACK WOUND WAS ALSO CLEANSED AND REDRESSED OVERNIGHT. INFUSIONS: NORMAL SALINE AND FENT PERSONNEL RESEARCH SCIENTIST
--- NOTE | 2021-10-04 09:15 | NUR ---
ASSUMED CARE OF PT, REPORT RCV'D FROM JAMIE TALBOT. PT ALERT, NODDING HEAD YES/NO, FOLLOWS COMMANDS TO SQUEEZE HANDS BILATERALLY, MOVES BILATERAL EXTREMETIES IN RESPONSE TO STIMULATION. INTUBATED, VENT SETTINGS AC 22/350/18/70% WITH SATS>90%. LUNG SOUNDS COARSE/DIM T/O. OGT SECURELY IN PLACE, GLUCERNA@ 85 ML/HR (GOAL), 30 ML Q4 FLUSH. ROCHA PATENT AND DRAINING TO GRAVITY. FOAM DRESSING TO LEFT BACK, CHANGED NOC SHIFT, ASSESSED THIS SHIFT-DRESSING C/D/I. FENTANYL GTT @ 25 MCG/HR. PT'S MOTHER AT BEDSIDE, DECLINES NEEDS AT THIS TIME. SEE FULL SHIFT ASSESSMENT.
--- NOTE | 2021-10-04 16:56 | NUR ---
SHIFT SUMMARY NO ACUTE CHANGES THIS SHIFT. PT REMAINS INTUBATED, VENT SETTINGS AC 22/350/17/50% WITH SATS>90%. PT REMAINS ALERT TO VERBAL STIMULATION, FOLLOWS COMMANDS WEAKLY, MOVES EXTREMETIESX4. LUNG SOUNDS COARSE/DIM. SMALL AMOUNT DARK RED BLOODY SECRETIONS FROM ETT. GOOD URINARY OUTPUT FROM ROCHA, ROCHA COLLECTION BAG CHANGED THIS SHIFT. PTS MOTHER AT BEDSIDE T/O SHIFT. DENIES NEEDS/QUESTIONS AT THIS TIME. WILL REPORT TO ONCOMING NURSE.
[2021-10-05 03:34] LABS: BASOPHILS ABSOLUTE AUTO 0.01 K/mm3 (0.00-0.23); BASOPHILS PERCENT AUTO 0 % (0-2); EOSINOPHILS PERCENT AUTO 0 % (0-6); Hematocrit 41.2 % (37.0-53.0); Hemoglobin 12.9 g/dL (13.5-17.5); IMMATURE GRAN ABSOLUTE AUTO 0.17 K/mm3 (0.00-0.10); IMMATURE GRAN PERCENT AUTO 2 % (0-1); LYMPHOCYTES ABSOLUTE AUTO 0.11 K/mm3 (0.84-5.20); LYMPHOCYTES PERCENT AUTO 1 % (21-46); MONOCYTES ABSOLUTE AUTO 0.91 K/mm3 (0.16-1.47); MONOCYTES PERCENT AUTO 9 % (4-13); Mean Corpuscular HGB 29.5 pg (26.0-34.0); Mean Corpuscular HGB Conc 31.3 g/dL (31.5-36.5); Mean Corpuscular Volume 94 fL (80-100); Mean Platelet Volume 10.9 fL (9.1-12.4); NEUTROPHILS PERCENT AUTO 88 % (41-73); NRBC ABSOLUTE 0.02 K/mm3 (0.00-0.02); NRBC Auto 0.2 /100 WBC (0.0-0.2); Platelet Count 213 K/mm3 (150-400); RDW Coefficient Variation 18.2 % (11.7-14.2); RDW Standard Deviation 61.8 fL (35.1-46.3); Red Blood Cell Count 4.37 M/mm3 (4.30-5.90)
[2021-10-05 03:51] LABS: Anion Gap 3 mmol/L (6-16); Blood Urea Nitrogen 56 mg/dL (8-24); Bun/Creatinine Ratio 81.5 (12.0-20.0); CO2, Blood 40 mmol/L (21-32); Calcium, Blood 8.1 mg/dL (8.5-10.1); Chloride, Blood 101 mmol/L (98-108); Creatinine, Blood 0.69 mg/dL (0.60-1.20); Glomerular Filtration Rate >60 (60-); Glucose, Blood 213 mg/dL (70-99); Phosphorus, Blood 3.8 mg/dL (2.5-4.9); Potassium, Blood 4.3 mmol/L (3.5-5.5); Sodium, Blood 144 mmol/L (136-145)
--- NOTE | 2021-10-05 06:22 | NUR ---
SHIFT SUMMARY: PATIENT REMAINS OFF SEDATION. WAS MORE ANXIOUS TONIGHT, GAVE PRN ATIVAN TO ALLEVIATE ANXIETY. MOM WAS AT BEDSIDE UNTIL 2200, SHE WAS WORRIED ABOUT PT.'s HR AND VENTILATOR REQUIREMENTS. REASSURED MOM THAT WE ARE DOING OUR BEST TO PROVIDE QUALITY PATIENT CENTERED CARE. VC/AC VENT SETTIN/350/17/40%. SMALL TO MODERATE DARK RED SECRETIONS FROM ETT. LUNG SOUNDS ARE DIMINISHED. STARTING TO COUGH MORE AND BITES ON ETT WHEN ANXIOUS. FEBRILE OVERNIGHT. GAVE PRN ACETAMINOPHEN AND ICE PLACED TO HELP BRING DOWN PT TEMP. EDEMATOUS. SINUS TACH HR RANGING FROM 90-120. TF REMAINS AT GOAL. LOW RESIDUALS. NO BM OVERNIGHT. ADEQUATE URINE OUTPUT FROM ROCHA CATH. BACK WOUND REMAINS UNCHANGED. SCROTUM AND PERIANAL EXOCORIATED, CALAZIME CREAM PLACED AND PILLOW CASE SLING FOR THE SCROTUM. 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
--- NOTE | 2021-10-05 09:55 | NUR ---
CARE ASSUMED OF PT AT 0700. [facility]EP[facility] FENTANYL GTT 25MCG/HR. PT OPENS EYES TO VOICE THEN QUICKLY FALLS BACK TO SLEEP, PT IS NOT FOLLOWING COMMANDS AT THIS TIME. PT IS HYPOTENSIVE W MAP >65. DR DENTON AT BEDSIDE THIS AM AND GIVEN UPDATE. LOPRESSOR HELD THIS AM FOR SBP <100, LASIX CHANGED TO Q12HRS. WOUND TO LEFT FLANK FOLDS CLEANED AND DRSG CHANGED. WOUND WITH SLOUGHING AND VERY FOUL ODOR. SMALL AMT OF BLEEDING TO WOUND BED. DR DENTON WAS ABLE TO EXAMINE WOUND, CX SENT OF WOUND. DR DENTON LOWERED PEEP TO 16. RECTAL TEMP PROBE PLACED TO CLOSELY MONITOR TEMPS. TEMP 100.2. BLOOD CX'S SENT, NEW ANTIBIOTICS STARTED. PT'S MOTHER AT BEDSIDE.
--- NOTE | 2021-10-05 11:05 | NUR ---
DR ARREOLA AT BEDSIDE. PT'S MOTHER CONSENTED FOR TRACH PLACEMENT IN OR. DR CORRIE NAVARRETE.
--- NOTE | 2021-10-05 19:13 | NUR ---
NO OTHER CHANGES T/O SHIFT. BP REMAINS ON LOWER SIDE W MAPS>60. DR DENTON AWARE. PT EMILY TUBE FEEDS. PT OPENED EYES TO VOICE BUT DID NOT FOLLOW ANY COMMANDS AND WAS SLEEPING MOST OF SHIFT.
--- NOTE | 2021-10-06 02:34 | NUR ---
AT BEGINNING OF SHIT CYRIL WAS NOT BEING RESPONSIVE LIKE PREVIOUS DAYS. HE WOULD OPEN HIS EYES AND THAT WAS ALL. NO SPONTANEOUS MOVEMENT, NO FOLLOWING THE VOICE WITH HIS EYES, NO HEAD TURNS, NODS. AFTER A COUPLE OF HOURS CYRIL BEGAN RESPONDING, HE WAS FOLLOWING VOICE AND MOVING HIS ARMS AND SHOULDERS, NOT ON COMMAND. HE WAS THEN NODDING AND ANSWERING THIS RN'S QUESTIONS. HE CONTINUES TO NOT SHOW ANY MOVEMENT WITH THE LEGS, HE WAS TURNED AND CHECKED FOR BM AND INSPECTION OF HIS BACK. HE TOLERATED WELL. THIS WAS DONE BY THIS RN AND HIS MOM. AT THIS TIME, CYRIL RETURNS BACK TO "SLEEP" IN WHICH HE IS LESS RESPONSIVE, LESS MOBILE.
[2021-10-06 04:28] LABS: BASOPHILS PERCENT AUTO 0 % (0-2); EOSINOPHILS PERCENT AUTO 0 % (0-6); Hematocrit 38.5 % (37.0-53.0); Hemoglobin 11.9 g/dL (13.5-17.5); IMMATURE GRAN ABSOLUTE AUTO 0.11 K/mm3 (0.00-0.10); IMMATURE GRAN PERCENT AUTO 2 % (0-1); LYMPHOCYTES ABSOLUTE AUTO 0.25 K/mm3 (0.84-5.20); LYMPHOCYTES PERCENT AUTO 5 % (21-46); MONOCYTES ABSOLUTE AUTO 0.71 K/mm3 (0.16-1.47); MONOCYTES PERCENT AUTO 14 % (4-13); Mean Corpuscular HGB 29.5 pg (26.0-34.0); Mean Corpuscular HGB Conc 30.9 g/dL (31.5-36.5); Mean Corpuscular Volume 95 fL (80-100); Mean Platelet Volume 10.7 fL (9.1-12.4); NEUTROPHILS PERCENT AUTO 79 % (41-73); NRBC ABSOLUTE 0.02 K/mm3 (0.00-0.02); NRBC Auto 0.4 /100 WBC (0.0-0.2); Platelet Count 158 K/mm3 (150-400); RDW Coefficient Variation 18.3 % (11.7-14.2); RDW Standard Deviation 63.5 fL (35.1-46.3); Red Blood Cell Count 4.04 M/mm3 (4.30-5.90); White Blood Cell Count 5.07 K/mm3 (4.00-11.30)
[2021-10-06 04:45] LABS: Anion Gap 5 mmol/L (6-16); Blood Urea Nitrogen 48 mg/dL (8-24); CO2, Blood 37 mmol/L (21-32); Calcium, Blood 7.2 mg/dL (8.5-10.1); Chloride, Blood 106 mmol/L (98-108); Creatinine, Blood 0.56 mg/dL (0.60-1.20); Glomerular Filtration Rate >60 (60-); Glucose, Blood 109 mg/dL (70-99); Magnesium, Blood 2.6 mg/dL (1.6-2.4); Potassium, Blood 3.6 mmol/L (3.5-5.5); Sodium, Blood 148 mmol/L (136-145)
--- NOTE | 2021-10-06 06:25 | NUR ---
CYRIL HAS BEEN ENGAGING A COUPLE OF TIMES THIS SHIFT. AROUND 0400 HE WAS VERY ENGAGING, SMILING AND NODDING. MOVING HIS SHOULDERS AND NECK INDEPENDENTLY. HE STILL IS NOT MOVING HIS LEGS, HE DID HAVE A MOMENT WHERE HE WAS TEARFUL WITH THE INSULIN SHOT. HE CONTINUES WITH NS TKO X 2. HE IS CONTINUING ON THE VENT, AC 22/250/16/40%, SATS >88%. ABD SOFT ROUND, NO BM THIS SHIFT. TURNED AND CHECKED X 2. PT DOESN'T SEEM TO TOLERATE HIS BEING POSITIONED ON THE RIGHT SIDE, HE SEEMS MORE RESTLESS AND UNCOMFORTABLE. ROCHA CONTINUES WITH GOOD OUTPUT. RESIDUALS ON TUBE FEEDINGS 80 AND 100. SKIN CONTINUES VERY DRY. WILL CONTINUE TO MONITOR AND TREAT, WILL REPORT OFF WHEN ABLE.
--- NOTE | 2021-10-06 08:00 | NUR ---
PT REMAINS INTUBATED AND MECHANICALLY VENTILATED. PT OPENS EYES TO VOICE. NYSTAGMUS NOTED. PT MAKING EYE CONTACT, NODDDING, AND SMILING AT TIMES. PT UNABLE TO FOLLOW COMMANDS TO SHARK BIOLOGIST AND WIGGLE HIS TOES AT THIS TIME. PT OPENED HIS MOUTH TO ALLOW FOR ORAL CARE-TOLERATED WELL. PT IS FEBRILE. ICE PACKS PLACED. ECG SHOWS SR TO ST WITH RATE 90-110'S. BP STABLE. GENENRALIZED EDEMA NOTD. LUNGS DIMINSHED T/O. SATS>90% ON FIO2 40%. ETT SUCTION PROCUCTIVE OF MODERATE AMOUNT OF THICK, RED SPUTUM. ABDOMEN OBESE WITH HYPOACTIVE BT'S X 4. PT HAS NOT HAD A BOWEL MOVEMENT FOR 2-3 DAYS-SUPPOSITORY GIVEN. OGTF WITH 50 CC RESIDUAL-REFED. GLUCERNA 1.2 CONTINUES @ 85 CC/HR. CBG 111-AM LONG ACTING INSULIN HELD-SEE EMAR. ROCHA WITH SMALL AMOUNT OF DARK, YELLOW URINE TO BSD-ROUTINE AM LASIX GIVEN. WOUND TO LEFT BACK SKIN FOLD WITH LARGE AMOUNT OF NECROTIC TISSUE AND SLOUGH NOTED. PHOTO TAKE AND REVIEWED WITH DR. DENTON. DR. TORO TO BE CONSULTED. WOUND CARE DONE-CLEANSED WITH WOUND CLEANSER, PATTED DRY, THEN ALGENATE PAD AND ABSORBANT DRESSING PLACED. NEW WOUND NOTED TO PT COCCYX-PHOTO TAKE. WOUND CLEANSED WITH WOUND CLEANSER, PATTED DRY, THEN FOAM DRESSING PLACED. PT SCROTUM, RAFAEL, AND RECTAL AREA VERY EXCORIATED. RAFAEL CARE COMPLETED AND CALAZIME CREAM PLACED. PT MOTHER AT BEDSIDE. UPDATED TO CURRENT STATUS AND PLAN OF CARE.
[2021-10-06 10:03] LABS: Vancomycin, Trough 32.3 ug/mL (5.0-10.0)
--- NOTE | 2021-10-06 20:25 | NUR ---
ASSUMED CARE AT 1200. NO ACUTE EVENTS THIS SHIFT. PT MEDICATED WITH PRN FENTANYL AND ATIVAN FOR PAIN/VENT ASYNCHRONY. REMAINS ON CONTINUOUS FENTANYL INFUSION AT 25MCG/HR. FIO2 DECREASED FROM 60% TO 50%. HAS A MODERATE AMOUNT OF THICK DARK BLOOD FROM ETT, DISCUSSED WITH DR. DENTON. APPROX 1000CC UOP TODAY. WOUND DISCUSSED WITH DR. TORO. DRESSING CHANGED.
--- NOTE | 2021-10-06 20:54 | NUR ---
RECEIVED REPORT ON CYRIL, HE IS THEN CLEANED UP FROM LARGE STICKY BROWN BOWEL MOVEMENT WITH 4 PERSON ASSIST. HIS BACK DRESSING CHANGED, DARK IN COLOR, EDGES WITH GOOD PINK COLOR, NO EXUDATE AT THIS TIME, SCROTUM AND GLUTEAL FOLDS TENDER AND BEGINNING TO BREAK DOWN, ORANGE BARRIER CREAM APPLIED. GOOD RAFAEL CARE PERFORMED. REPOSITIONED. TOLERATED TURN WELL, FACE GETS RED BUT DOES WELL. MOM IN ROOM.
[2021-10-06 21:29] LABS: Vancomycin, Random 20.8 ug/mL
--- NOTE | 2021-10-07 03:05 | NUR ---
CYRIL HAS BEEN VERY RESTLESS TONIGHT. HE HAS BEEN MEDICATED WITH ADDITIONAL FENTANYL AND ATIVAN FOR RESTLESSNESS, FIGHTING VENTILATOR, AND AGITATION. HE HAS BEEN SUCTIONED SEVERAL TIMES, WITH DARK RED RETURN. HE HAS BEEN TEARFUL, USING HIS HANDS ON OCC. BUT NO MOVEMENT FROM HIS LEGS, SHOULDERS AND HEAD NODS AND SHAKES. MOM AT BEDSIDE. TUBE FEEDING TURNED OFF AT MIDNIGHT.
[2021-10-07 04:16] LABS: BASOPHILS PERCENT AUTO 0 % (0-2); EOSINOPHILS ABSOLUTE AUTO 0.09 K/mm3 (0.00-0.68); EOSINOPHILS PERCENT AUTO 2 % (0-6); Hematocrit 42.7 % (37.0-53.0); Hemoglobin 13.1 g/dL (13.5-17.5); IMMATURE GRAN ABSOLUTE AUTO 0.09 K/mm3 (0.00-0.10); IMMATURE GRAN PERCENT AUTO 2 % (0-1); LYMPHOCYTES ABSOLUTE AUTO 0.62 K/mm3 (0.84-5.20); LYMPHOCYTES PERCENT AUTO 12 % (21-46); MONOCYTES ABSOLUTE AUTO 0.54 K/mm3 (0.16-1.47); MONOCYTES PERCENT AUTO 10 % (4-13); Mean Corpuscular HGB 28.9 pg (26.0-34.0); Mean Corpuscular HGB Conc 30.7 g/dL (31.5-36.5); Mean Corpuscular Volume 94 fL (80-100); Mean Platelet Volume 10.6 fL (9.1-12.4); NEUTROPHILS ABSOLUTE AUTO 4.03 K/mm3 (1.96-9.15); NEUTROPHILS PERCENT AUTO 75 % (41-73); NRBC ABSOLUTE 0.02 K/mm3 (0.00-0.02); NRBC Auto 0.4 /100 WBC (0.0-0.2); Platelet Count 153 K/mm3 (150-400); RDW Coefficient Variation 18.6 % (11.7-14.2); RDW Standard Deviation 62.8 fL (35.1-46.3); Red Blood Cell Count 4.54 M/mm3 (4.30-5.90); White Blood Cell Count 5.37 K/mm3 (4.00-11.30)
[2021-10-07 04:43] LABS: Anion Gap 4 mmol/L (6-16); Blood Urea Nitrogen 46 mg/dL (8-24); Bun/Creatinine Ratio 79.2 (12.0-20.0); CO2, Blood 40 mmol/L (21-32); Calcium, Blood 7.9 mg/dL (8.5-10.1); Chloride, Blood 103 mmol/L (98-108); Creatinine, Blood 0.58 mg/dL (0.60-1.20); Glomerular Filtration Rate >60 (60-); Glucose, Blood 121 mg/dL (70-99); Potassium, Blood 3.5 mmol/L (3.5-5.5); Sodium, Blood 147 mmol/L (136-145)
--- NOTE | 2021-10-07 06:12 | NUR ---
CYRIL CONTINUES TO BE INTERMITTENTLY AGITATED, FIGHTING WITH THE VENTILATOR, RESTLESS, MOVING SHOULDERS AND HANDS. GRIMACING, CRYING, DOES SMILE ONCE IN A WHILE. MOM AT BESIDE. CONTINUES ON FENTANYL SERVICE ASSOCIATE @ 25MCG/HR CONT INFUSION. NS @ TKO X2. ROCHA TO GRAVITY DRAINAGE. TEMP REMAINS LABILE, BETWEEN 99.9 AND 100.4. WILL CONTINUE TO MONITOR AND REPORT OFF WHEN ABLE.
--- NOTE | 2021-10-07 07:45 | NUR ---
DAY SURG HAS TAKEN PATIENT TO TRACH PROCEDURE.
--- NOTE | 2021-10-07 09:14 | NUR ---
10/07/21 0914 Rc Ojeda 1% LIDOCAINE WITH EPINEPHRINE 1:100,000 INJECTED INTO NECK BY MD ARREOLA AT 0813 2.5CC.
--- NOTE | 2021-10-07 09:50 | NUR ---
INITIAL ASSESSMENT PATIENT RETURNED FROM DAY SURGERY AROUND 0930. PATIENT PLACED BACK ON FENTANYL POSTAL SERVICE CLERK PUMP WELL PROPOFOL TO HELP KEEP COMFORTABLE POST TRACH PLACEMENT THIS AM. PATIENT IS RESPONDING TO VERBAL STIMULI WITH OPENING OF EYES. PATIENT RESPONDS TO MOTHER; SOMETIMES TEARFUL. PATIENT HAS TRISOMY 21. PATIENT IS NOT MOVING EXTREMITIES AT THIS TIME. PATIENT HAS CORE TEMP OF 100.4 DEGREES FAHRENHEIT. PATIENT ON ACVC+ 22, TV 350, TI 0.85, PEEP 16 AND 55% FIO2. PATIENT HAS 8.0 XLT, NON-FENESTRATED TRACH. LUNGS CLEAR IN UPPER LOBES, DIMINISHED IN LOWER LOBES. SMALL AMOUNT OF THICK, RED SPUTUM BEING SUCTIONED FROM TRACH. TRACH SIGHT HAS FRESH BLOOD. PATIENT IN ST, HR IN THE 1-TEENS. SBP IN THE 140S. SCDS IN PLACE. PATIENT EDEMATOUS ALL OVER. ABDOMEN MILDLY DISTENDED, SOFT, WITH HYPOACTIVE BOWEL SOUNDS NOTED. PATIENT'S MOTHER STATED THAT HE HAD VERY LARGE LIQUID STOOL YESTERDAY. OG REMOVED AFTER PATIENT RETURNED FROM TRACH PROCEDURE. ROCHA IN PLACE DRAINING TORIBIO COLORED URINE. SCHEDULED LASIX BEING GIVEN. SCROTUM EDEMATOUS AND EXCORIATED. SKIN IS DRY AND FLAKING. SORE NOTED TO COCCYX. PANNUS RED. WOUND TO L BACK. PROPOFOL INFUSING AT 15 MCG/ KG/ MINUTE, FENTANYL AT 25 MCG/ HOUR AND NS TKO. BED LOW, CALL LIGHT IN REACH. MOTHER AT BEDSIDE.
--- NOTE | 2021-10-07 12:00 | NUR ---
PATIENT HAS TEMP OF 100.4 DEGREES FAHRENHEIT. HR IN THE LOW 100S. SBP IN THE 120S. FIO2 DECREASED TO 50%. DOBHOFF PLACED AND TF RESUMES. BLOOD SUGAR 100; NO COVERAGE INDICATED. NO OTHER ACUTE CHANGES TO NOTE ON AT THIS TIME. MOM AT SIDE.
--- NOTE | 2021-10-07 16:00 | NUR ---
PATIENT HAS TEMP OF 100.3 DEGREES FAHRENHEIT. NO SIGNS OF PAIN NOTED. HR IN THE LOW 100S. SBP IN THE 130S. DR. OLVERA INFORMED OF MINIMAL URINE OUTPUT; NO ORDER RECEIVED. NO OTHER ACUTE CHANGES TO NOTE ON AT THIS TIME. MOTHER REMAINS AT BEDSIDE.
--- NOTE | 2021-10-07 19:28 | NUR ---
SHIFT SUMMARY PATIENT REMAINED ON FENTANYL PUMP AND PROPOFOL SINCE COMING BACK FROM TRACH PROCEDURE THIS AM. PATIENT HAS REMAINED APPEARING COMFORTABLE. TMAX THIS SHIFT OF 101.3 DEGREES FAHRENHEIT. PRN TYLENOL GIVEN OT. 8.0 XLT NON-FENESTRATED TRACH INSERTED THIS AM. VENT SETTINGS ACVC+ 22, TV 350, TI 0.85, PEEP 16, 60% FIO2. ETT SECRETIONS HAVE BEEN THICK AND DARK RED IN COLOR. PATIENT HAS REMAINED SR TO ST, HR 90S TO 1-TEENS. SBP 80S TO 140S. PATIENT REMAINS EDEMATOUS. DOBHOFF INSERTED TODAY. TF RESUMED AT GOAL RATE. NO BM THIS SHIFT. ROCHA DRAINED 234 MLS OF TORIBIO COLORED URINE THIS SHIFT. DR. OLVERA INFORMED OF MINIMAL OUTPUT. CREAM APPLIED TO EXCORIATED SCROTUM T/O DAY. WOUND CARE PERFORMED TO WOUND ON BACK. PATIENT REPOSITIONED Q2H. PROPOFOL AT 15 MCG/ KG/ MINUTE, NS TKO AND FENTANYL AT 25 MCG/ HOUR. BLOOD SUGARS 100 AND 230 THIS SHIFT. MOTHER HAS REMAINED IN THE ROOM MOST OF THE DAY WITH SHORT BREAKS OUT OF UNIT. BED LOW, CALL LIGHT IN REACH. PATIENT APPEARS COMFORTABLE AT THIS TIME. REPORT GIVEN TO ASSUMING METAL FURNITURE PANEL COVERER NURSE.
--- NOTE | 2021-10-07 21:50 | NUR ---
ASSUMED CARE RECEIVED REPORT FROM JAMIE ZAPIEN AT 1900. PT HAS NEW TRACH FROM [facility] TODAY. ON PROPOFOL 15MCG/KG/MIN AND FENTANYL 25MCG/HR FOR COMFORT AND MILD SEDATION. HE OPENS EYES TO VOICE, MOVEMENT AND ORAL CARE, OTHERWISE DOES NOT FOLLOW COMMANDS AND NO MOVEMENTS FROM EXTREMETIES. GRIMACES WITH ORAL CARE AND SQUEEZES EYES SHUT. FEBRILE, TEMP CURRENTLY 100.7 FAHRENHEIT. FAN AND ICE ON. 8.0 XLT NON-FENESTRATED TRACH INSERTED THIS MORNING. VENT SETTINGS ARE AC/VC+ RR 22/TV 350/TIDAL INSPIRATION 0.85S/PEEP 16/FIO2 60%, ETT SECRETIONS ARE THICK AND RED IN COLOR, SPO2 89-95%. HR IS SR TO ST, RATE IN 80-110'S. SBP CURRENTLY IN 90-100'S, MAP >65. DOBHOFF IN LEFT NARE, 74CM AT NOSTRIL. GLUCERNA 1.2 TF AT GOAL OF 85ML/HR WITH Q4H H20 FLUSHES. BT PRESENT X4. ROCHA PATENT, DRAINING TORIBIO CLOUDY URINE. PM LASIX GIVEN. MOM AND FAMILY PRESENT AT BEDSIDE. ORDERS REVIEWED.
--- NOTE | 2021-10-08 03:42 | NUR ---
PT TURNED AND WOUND ON LEFT BACK CLEANED AND REDRESSED WITH CALCIUM ALGINATE AND ABSORBENT PAD, PER WOUND CARE ORDERS. PHOTO TAKEN. THE UNDERSIDE OF HIS SCROTUM HAS MULTIPLE, SMALL OPEN WOUNDS/BLISTERS. CLEANED AND CALAZIME CREAM APPLIED, PHOTO ALSO TAKEN AND IN CHART. HE ALSO HAS A SMALL BLISTER THAT IS UNOPENED ON HIS LEFT BUTTOCK. BED BATH GIVEN, PILLOW CASES PLACED UNDER PANNUS.
--- NOTE | 2021-10-08 04:36 | NUR ---
CALL TO DR. BERGER RE: HYPOTENSION AND MAP <65 FOR THE LAST HOUR. PROPOFOL HAS BEEN PLACED ON STAND BY AND SLIGHT IMPROVEMENT TO BP; HOWEVER, ORDERS FOR 500ML BOLUS TO RUN AT 100ML/HR FOR A ONE TIME DOSE. MORNING LASIX D/C AND LABS ORDERED FOR THIS AM.
[2021-10-08 05:23] LABS: BASOPHILS ABSOLUTE AUTO 0.01 K/mm3 (0.00-0.23); BASOPHILS PERCENT AUTO 0 % (0-2); EOSINOPHILS ABSOLUTE AUTO 0.04 K/mm3 (0.00-0.68); EOSINOPHILS PERCENT AUTO 1 % (0-6); Hematocrit 40.7 % (37.0-53.0); Hemoglobin 12.6 g/dL (13.5-17.5); IMMATURE GRAN ABSOLUTE AUTO 0.07 K/mm3 (0.00-0.10); IMMATURE GRAN PERCENT AUTO 1 % (0-1); LYMPHOCYTES ABSOLUTE AUTO 0.62 K/mm3 (0.84-5.20); LYMPHOCYTES PERCENT AUTO 10 % (21-46); MONOCYTES ABSOLUTE AUTO 0.58 K/mm3 (0.16-1.47); MONOCYTES PERCENT AUTO 10 % (4-13); Mean Corpuscular HGB 29.4 pg (26.0-34.0); Mean Corpuscular Volume 95 fL (80-100); Mean Platelet Volume 11.7 fL (9.1-12.4); NEUTROPHILS PERCENT AUTO 78 % (41-73); NRBC ABSOLUTE 0.05 K/mm3 (0.00-0.02); NRBC Auto 0.8 /100 WBC (0.0-0.2); Platelet Count 122 K/mm3 (150-400); RDW Coefficient Variation 18.9 % (11.7-14.2); Red Blood Cell Count 4.28 M/mm3 (4.30-5.90); White Blood Cell Count 6.02 K/mm3 (4.00-11.30)
[2021-10-08 05:42] LABS: Anion Gap 6 mmol/L (6-16); Blood Urea Nitrogen 70 mg/dL (8-24); Bun/Creatinine Ratio 61.9 (12.0-20.0); CO2, Blood 35 mmol/L (21-32); Calcium, Blood 7.5 mg/dL (8.5-10.1); Chloride, Blood 105 mmol/L (98-108); Creatinine, Blood 1.13 mg/dL (0.60-1.20); Glomerular Filtration Rate >60 (60-); Glucose, Blood 199 mg/dL (70-99); Potassium, Blood 3.9 mmol/L (3.5-5.5); Sodium, Blood 146 mmol/L (136-145)
--- NOTE | 2021-10-08 06:10 | NUR ---
SHIFT SUMMARY PT ONLY ON FENTANYL FOR PAIN/SEDATION AT THIS TIME. FENTANYL REMAINS AT 25MCG/HR. PROPOFOL OFF D/T HYPOTENSION. HE IS MORE ALERT AND OPENS EYES TO VOICE AND HIS NAME. MORE TEARFUL AND AGITATED WITHOUT SEDATION. ATIVAN GIVEN X2 PER SHIFT. RECEIVING 500ML BOLUS FOR HYPOTENSIVE BP. VENT SETTINGS REMAIN AC/VC+ 22/350/INSP.TIME 0.85/16/55%. TRACH INNER CANNULA CHANGED BY RT AND GAUZE DRESSING CHANGED THIS SHIFT. HE IS NOTED TO DESAT WITH REPOSITIONING, ESPECIALLY WHEN ON RIGHT SIDE, SPO2 88-95% THROUGHOUT SHIFT. CURRENTLY FEBRILE WITH TEMP 99.2, TMAX OF 101.0. HR IS SR, RATE IN 80-90'S. BP CURRENTLY HYPOTENSIVE, SBP IN 80-90'S, MAP 65 OR GREATER. DOBHOFF REMAINS IN PLACE AT 74CM IN LEFT NARE, TF CONTINUES AT GOAL OF 85ML/HR. ROCHA IN PLACE, 1850ML OUT, TORIBIO CLOUDY URINE WITH SEDIMENT. WOUND ON BACK WAS CLEANED AND REDRESSED PER WOUND CARE ORDERS, SCROTUM PICTURE TAKEN AND BARRIER CREAM APPLIED. CBG'S REMAIN IN 190'S, COVERAGE PROVIDED PER EMAR. WILL REPORT TO ONCOMING SHIFT WHEN AVAILABLE.
[2021-10-08 14:37] LABS: Vancomycin, Trough 37.2 ug/mL (5.0-10.0)
--- NOTE | 2021-10-08 16:19 | NUR ---
THIS AFTERNOON, PT BEGAN MOVING SHOULDERS AND TRACH BEGAN BLEEDING SIGNIFICANTLY. DESIGN DRAFTER CHIEF, RT, AND DR. OLVERA WERE BROUGHT INTO THE ROOM. PRESSURE WAS HELD AT THE BLEED SITE. DR OLVERA SENT PAGE TO DR. ARREOLA AND LEFT MESSAGE FOR ANSWERING SERVICE. DR. OLVERA ALSO CALLED DR. TORO WHO ARRIVED AT BEDSIDE AND PUT SURGICEL POWER WELL ULTRAFOAM AT TRACH SITE. ONCE BLEEDING HAD SLOWED, ORDERS WERE GIVEN TO SEDATE PATIENT TO MINIMIZE COUGHING/MOVMEMENT, AND MINIMIZE REPOSITIONING FOR 24 HOURS WHILE CLOT FORMS AND BLEEDING STABALIZES. PT PLACED BACK ON PROPOFOL AND LEVOPHED FOR BP SUPPORT WHILE SEDATED. AT THIS TIME, BLEEDING HAS STOPPED.
[2021-10-08 16:20] LABS: Hematocrit 35.3 % (37.0-53.0); Hemoglobin 10.8 g/dL (13.5-17.5)
--- NOTE | 2021-10-08 18:28 | NUR ---
SHIFT SUMMARY SEE PREVIOUS NOTE FOR DETAILS ON BLEEDING EVENT THIS AFTERNOON. NEURO: PRIOR TO SEDATION THIS AFTERNOON, PT WAS ALERT, MOVED BUE, NODDED APPROPRIATELY TO SOME QUESTIONS, AND FOLLOWED SOME DIRECTIONS. NOW SEDATED ON PROPOFOL AT 40. RESP: TRACH W/ MECHANICAL VENTILATION. PEEP 16, FIO2 AT 60%. TRACH CURRENTLY WITH DRIED BLOOD BUT NO NEW DRAINAGE. CARDIAC: HYPOTENSIVE TODAY. RECEIVED 1L NS AND STARTED ON LEVOPHED. LEVO NOW RUNNING AT 12. SR-ST. GI/: 1L UOP TODAY. TF RUNNING AT GOAL. NO BM.
--- NOTE | 2021-10-08 21:47 | NUR ---
ASSUMED CARE RECEIVED REPORT FROM JAMIE VERDE AT 1900. PT REMAINS ON VENTILATOR AND IS FULLY SEDATED R/T BLEEDING EVENT FROM TRACH SITE. PER DR. TORO, PT IS NOT TO BE FULLY TURNED FOR 24 HOURS TO ALLOW SITE TO STABILIZE AND CLOT. PT SEDATED TO DISCOURAGE COUGHING/MOVEMENTS FROM PT. PROPOFOL AT 40MCG/KG/MIN, FENTANYL AT 25MCG/HR. VENT IS AC/VC+ 22/350/16/50%. SPO2 >90%. BLOOD IS NOTED AROUND TRACH SITE, BUT IS NOT FRESH BLOOD. COVERED WITH SURGICEL POWDER AND ULTRAFOAM. HR IS SR WITH RATE IN 90'S, BP STABLE, MAP >65 WITH LEVOPHED GTT AT 12MCG/MIN. DOBHOFF IN LEFT NARE, 74CM, GLUCERNA 1.2 TF AT GOAL OF 85ML/HR. ROCHA PATENT, DRAINING CLOUDY YELLOW URINE TO GRAVITY. MOM AND SISTER PRESENT AT BEDSIDE. ORDERS REVIEWED.
[2021-10-09 04:03] LABS: BASOPHILS ABSOLUTE AUTO 0.01 K/mm3 (0.00-0.23); BASOPHILS PERCENT AUTO 0 % (0-2); EOSINOPHILS ABSOLUTE AUTO 0.03 K/mm3 (0.00-0.68); EOSINOPHILS PERCENT AUTO 0 % (0-6); Hematocrit 31.5 % (37.0-53.0); Hemoglobin 9.6 g/dL (13.5-17.5); IMMATURE GRAN ABSOLUTE AUTO 0.09 K/mm3 (0.00-0.10); IMMATURE GRAN PERCENT AUTO 1 % (0-1); LYMPHOCYTES ABSOLUTE AUTO 0.93 K/mm3 (0.84-5.20); LYMPHOCYTES PERCENT AUTO 10 % (21-46); MONOCYTES ABSOLUTE AUTO 0.85 K/mm3 (0.16-1.47); MONOCYTES PERCENT AUTO 9 % (4-13); Mean Corpuscular HGB 29.4 pg (26.0-34.0); Mean Corpuscular HGB Conc 30.5 g/dL (31.5-36.5); Mean Corpuscular Volume 96 fL (80-100); Mean Platelet Volume 11.4 fL (9.1-12.4); NEUTROPHILS ABSOLUTE AUTO 7.54 K/mm3 (1.96-9.15); NEUTROPHILS PERCENT AUTO 80 % (41-73); NRBC ABSOLUTE 0.04 K/mm3 (0.00-0.02); NRBC Auto 0.4 /100 WBC (0.0-0.2); Platelet Count 126 K/mm3 (150-400); RDW Coefficient Variation 18.9 % (11.7-14.2); RDW Standard Deviation 66.7 fL (35.1-46.3); Red Blood Cell Count 3.27 M/mm3 (4.30-5.90); White Blood Cell Count 9.45 K/mm3 (4.00-11.30)
[2021-10-09 04:21] LABS: Vancomycin, Random 29.2 ug/mL
--- NOTE | 2021-10-09 06:53 | NUR ---
PT REMAINS SEDATED WITH PROPOFOL AND FENTANYL, RATES UNCHANGED, SEE ICU FLOWSHEET. NO PURPOSEFUL MOVEMENTS NOTED THROUGHOUT THE NIGHT. TRACHEOSTOMY SITE HAS REMAINED STABLE WITH NO SIGNS OF BLEEDING. ORAL CARE DONE AND NO BLOOD NOTED IN MOUTH. FULL TURN REPOSITIONING NOT DONE PER DR. TORO'S ORDERS, MINIMAL SHIFTS IN PT'S POSITION DONE. BP MAINTAINED WITH MAP >65 ON LEVOPHED GTT, RATE CONTINUES AT 12MCG/MIN. HR REMAINED SR WITH RATE IN 80-90'S. VENT IS AC/VC+ 22/350/T.I. 0.85/16/45%, SPO2 >90%. TUBE FEED OFF FOR MAJORITY OF THE NIGHT TO AVOID BOWEL MOVEMENT AND EXCESSIVE TURNING. ROCHA PATENT, BUT ONLY 50ML OF URINE OUT THIS SHIFT, SEDIMENT AND CLOUDY, DARK YELLOW. WILL REPORT TO ONCOMING SHIFT WHEN AVAILABLE.
[2021-10-09 11:46] LABS: Albumin, Blood 2.6 g/dL (3.4-5.0); Anion Gap 5 mmol/L (6-16); Blood Urea Nitrogen 82 mg/dL (8-24); Bun/Creatinine Ratio 71.9 (12.0-20.0); CO2, Blood 33 mmol/L (21-32); Calcium, Blood 7.6 mg/dL (8.5-10.1); Chloride, Blood 105 mmol/L (98-108); Creatinine, Blood 1.14 mg/dL (0.60-1.20); Glomerular Filtration Rate >60 (60-); Glucose, Blood 168 mg/dL (70-99); Phosphorus, Blood 5.3 mg/dL (2.5-4.9); Sodium, Blood 143 mmol/L (136-145)
--- NOTE | 2021-10-09 18:01 | NUR ---
PT REMAINS SEDATED. NO NEW BLEEDING FROM TRACH. PER ORDER, PT HAS REMAINED STILL TODAY BESIDES MICROTURNS IN BED TO PREVENT NEW BLEEDING FROM TRACH SITE. LEVOPHED TITRATED DOWN TODAY AND NOW AT 6 MCG/MIN. PT RECEIVED 1L NS BOLUS AND 2 DOSES ALBUMIN. UOP 450 THIS SHIFT.
--- NOTE | 2021-10-09 21:00 | NUR ---
ASSUMED CARE PT SEDATED WITH PROPOFOL AND FENTANYL TO PREVENT MOVEMENTS D/T UNSTABLE TRACHEOSTOMY SITE. REPOSITIONING IS KEPT TO MINIMUM PER ORDER THERE IS NO SURGEON AVAILABLE TO FIX THE TRACH IF BLEEDING RESTARTS. DR. ARREOLA, WHO PLACED TRACH IS BACK 10/10/21. PT'S MOTHER REQUESTING TO NOT MOVE THE PATIENT UNLESS ABSOLUTELY NECESSARY IF HE HAS BOWEL MOVEMENT, AND SHE WISHES TO BE PRESENT WHEN WE DO HAVE TO MOVE HIM. VENT SETTINGS ARE AC/VC+ 22/350/T.I. 0.85/16/45%. SPO2 92-94%. NO ETT SUCTIONING DONE D/T UNSTABLE TRACH. NO BLOOD NOTED IN MOUTH OR NOSE WITH ORAL CARE, AND DRY BLOOD ON TRACH SITE, NO FRESH BLEEDING. HR IS SR WITH RATE IN 70-80'S. BP MAINTAINING MAP >65 ON LEVOPHED GTT. SEE ICU FLOWSHEET FOR ALL TITRATIONS. TUBE FEED AT GOAL, GLUCERNA 1.2 AT 85ML/HR. ROCHA PATENT, DRAINING CLOUDY YELLOW/TORIBIO URINE. HE IS AFEBRILE AT 98.5. ORDERS REVIEWED, MOTHER LEFT BEDSIDE AT 1999.
--- NOTE | 2021-10-10 01:06 | NUR ---
PT NOTED TO HAVE BLOOD SPATTERED OUT OF MOUTH AT AROUND 1130, RT AT BEDSIDE CHECKING VENT AND PRESSURE SETTINGS. MOUTH OPENED, SUCTIONED AND CLEANED, BLOOD CLOTS NOTED FROM BACK OF THROAT. GOOD ORAL CARE DONE AND NO BLOOD NOTED SINCE. NO BLOOD SEEN FROM TRACHEOSTOMY. PT'S MOM, EDDI, CALLED AND WAS UPDATED ON PT'S CONDITION.
[2021-10-10 04:52] LABS: Hemoglobin 8.7 g/dL (13.5-17.5); Mean Corpuscular HGB 31.3 pg (26.0-34.0); Mean Corpuscular HGB Conc 32.2 g/dL (31.5-36.5); Mean Corpuscular Volume 97 fL (80-100); Mean Platelet Volume 11.9 fL (9.1-12.4); NRBC ABSOLUTE 0.06 K/mm3 (0.00-0.02); NRBC Auto 1.6 /100 WBC (0.0-0.2); Platelet Count 104 K/mm3 (150-400); RDW Coefficient Variation 19.2 % (11.7-14.2); RDW Standard Deviation 66.4 fL (35.1-46.3); Red Blood Cell Count 2.78 M/mm3 (4.30-5.90); White Blood Cell Count 3.81 K/mm3 (4.00-11.30)
[2021-10-10 05:28] LABS: Creatinine, Blood 0.95 mg/dL (0.60-1.20)
--- NOTE | 2021-10-10 06:30 | NUR ---
PT REMAINS SEDATED WELL WITH PROPOFOL AT 45MCG/KG/MIN. NO MOVEMENTS NOTED THROUGHOUT SHIFT, AND NO COUGHING AGAINST VENT. TRACH HAS REMAINED STABLE WITH NO NEW BLEEDING NOTED. DRIED BLOOD REMAINS PRESENT ON TRACH DRESSING. NO OTHER EPISODES OF BLEEDING IN THE MOUTH AFTER 0000. NOW AFEBRILE. VENT SETTINGS REMAIN UNCHANGED THROUGHOUT SHIFT. SPO2 88-92%. HR STAYED SINUS RHYTHM, RATE IN 70-90'S. BP STABLE WITH MAP >65, LEVOPHED GTT DOWN TO 2MCG/MIN. TUBE FEED REMAINS AT GOAL OF 85ML/HR. ROCHA PATENT. REPOSITIONING KEPT VERY MINIMAL PER MD ORDERS. MOTHER PRESENT AT BEDSIDE CURRENTLY. WILL REPORT TO ONCOMING SHIFT WHEN AVAILABLE.
[2021-10-10 07:10] LABS: BAND PERCENT MAN 10 % (0-8); BASOPHILS ABSOLUTE MAN 0.03 K/mm3 (0.00-0.23); BASOPHILS PERCENT MAN 1 % (0-2); EOSINOPHILS ABSOLUTE MAN 0.03 K/mm3 (0.00-0.68); EOSINOPHILS PERCENT MAN 1 % (0-6); LYMPHOCYTES ABSOLUTE MAN 0.45 K/mm3 (0.84-5.20); LYMPHOCYTES PERCENT MAN 12 % (21-46); METAMYELOCYTE ABSOLUTE MAN 0.07 K/mm3 (0.00-0.00); METAMYELOCYTE PERCENT MAN 2 % (0-0); MONOCYTES ABSOLUTE MAN 0.41 K/mm3 (0.16-1.47); MONOCYTES PERCENT MAN 11 % (4-13); MYELOCYTE ABSOLUTE MAN 0.07 K/mm3 (0.00-0.00); MYELOCYTE PERCENT MAN 2 % (0-0); SEG NEUTROPHILS PERCENT MAN 61 % (41-73); TOTAL CELLS COUNTED 100
--- NOTE | 2021-10-10 08:00 | NUR ---
ASSUMED CARE REPORT FROM RADHA AYALA AT 0700. PT INTUBATED AND SEDATED. VENT SETTINGS AC/VC+ 22/350/0.85/16/45%. LUNGS CLEAR. TRACH IN PLACE, MODERATE AMOUNT OF DRIED BLOOD AROUND TRACH SITE. PER REPORT, WILL HOLD CLEANING, MINIMIZE SUCTIONING, HOLD TURNS UNTIL TRACH SITE DEAMED STABLE. WILL DISCUSS c DR MITCHELL ON ROUNDS. PROPOFOL GTT AT 45 MCG/KG/MIN, PT CLOSES MOUTH c ORAL CARE. NO OTHER RESPONSE TO STIMULI. SR, RATE 90'S. LEVO GTT FOR MAP >65. DOBHOFF TO LEFT NARE, 74 CM. TUBE FEEDS AT GOAL, 85 ML/HR c 30 ML FLUSHES q4 HR. NO BM FOR SEVERAL DAYS, UNABLE TO TURN FOR SUPPOSITORY. ABD OBESE, SOFT, NON TENDER. BT X 4. ROCHA PATENT, DRAINING TORIBIO URINE TO GRAVITY. PICC TO E, DRESSING C/D/I. WILL CONTINUE TO MONITOR.
--- NOTE | 2021-10-10 11:17 | NUR ---
DR MITCHELL ROUNDS LEVO ON STANDBY. MAP>65. CONTINUE CURRENT PLAN OF MINIMIZATION OF MOVEMENT AND SUCTIONING, NO REPOSITIONING UNTIL TRACH SITE ASSESSED BY DR ARREOLA. CALL PLACED TO DR ARREOLA'S OFFICE. DR ARREOLA TO SEE PT AT LUNCH OR AFTER CLINIC.
[2021-10-10 12:46] LABS: Albumin, Blood 2.5 g/dL (3.4-5.0); Anion Gap 13 mmol/L (6-16); Blood Urea Nitrogen 80 mg/dL (8-24); Bun/Creatinine Ratio 84.5 (12.0-20.0); CO2, Blood 23 mmol/L (21-32); Calcium, Blood 6.4 mg/dL (8.5-10.1); Chloride, Blood 96 mmol/L (98-108); Creatinine, Blood 0.95 mg/dL (0.60-1.20); Glomerular Filtration Rate >60 (60-); Glucose, Blood 223 mg/dL (70-99); Phosphorus, Blood 4.6 mg/dL (2.5-4.9); Potassium, Blood 4.2 mmol/L (3.5-5.5); Sodium, Blood 132 mmol/L (136-145)
[2021-10-10 14:13] LABS: Hematocrit 28.9 % (37.0-53.0); Mean Corpuscular HGB 30.3 pg (26.0-34.0); Mean Corpuscular HGB Conc 31.1 g/dL (31.5-36.5); Mean Corpuscular Volume 97 fL (80-100); Mean Platelet Volume 12.2 fL (9.1-12.4); NRBC ABSOLUTE 0.14 K/mm3 (0.00-0.02); NRBC Auto 3.1 /100 WBC (0.0-0.2); Platelet Count 118 K/mm3 (150-400); RDW Coefficient Variation 18.9 % (11.7-14.2); Red Blood Cell Count 2.97 M/mm3 (4.30-5.90); White Blood Cell Count 4.51 K/mm3 (4.00-11.30)
[2021-10-10 14:34] LABS: Anion Gap 7 mmol/L (6-16); Blood Urea Nitrogen 92 mg/dL (8-24); Bun/Creatinine Ratio 83.6 (12.0-20.0); CO2, Blood 31 mmol/L (21-32); Chloride, Blood 102 mmol/L (98-108); Glomerular Filtration Rate >60 (60-); Glucose, Blood 241 mg/dL (70-99); Potassium, Blood 4.4 mmol/L (3.5-5.5); Sodium, Blood 140 mmol/L (136-145)
[2021-10-10 14:44] LABS: BAND PERCENT MAN 5 % (0-8); BASOPHILS PERCENT MAN 0 % (0-2); EOSINOPHILS ABSOLUTE MAN 0.04 K/mm3 (0.00-0.68); EOSINOPHILS PERCENT MAN 1 % (0-6); LYMPHOCYTES ABSOLUTE MAN 0.09 K/mm3 (0.84-5.20); LYMPHOCYTES PERCENT MAN 2 % (21-46); METAMYELOCYTE ABSOLUTE MAN 0.09 K/mm3 (0.00-0.00); METAMYELOCYTE PERCENT MAN 2 % (0-0); MONOCYTES ABSOLUTE MAN 0.27 K/mm3 (0.16-1.47); MONOCYTES PERCENT MAN 6 % (4-13); MYELOCYTE ABSOLUTE MAN 0.04 K/mm3 (0.00-0.00); MYELOCYTE PERCENT MAN 1 % (0-0); NEUTROPHILS ABSOLUTE MAN 3.96 K/mm3 (1.96-9.15); SEG NEUTROPHILS PERCENT MAN 83 % (41-73); TOTAL CELLS COUNTED 100
--- NOTE | 2021-10-10 17:38 | NUR ---
SHIFT SUMMARY PT REMAINS INTUBATED AND SEDATED. VENT SETTINGS AC/VC+ 22/350/0.85/17/90%. LUNGS COARSE. SCANT THIN BLOODY SECRETIONS THROUGH ETT. TRACH CARE PERFORMED THIS SHIFT, INNER CANNULA CHANGED, TRACH TIES CHANGED, CLEANED AROUND INSERTION SITE. SURGICEL LEFT IN PLACE. NO BLEEDING NOTED. DR ARREOLA OK'D TO RETURN TO ALL ADLS (TRACH CARE, TURNS). BEDBATH COMPLETE, LINENS CHANGED. PICTURES OF LEFT FLANK AND SCROTUM UPDATED. SEE PHOTOS. TUBE FEEDS CHANGED TO VHP AT 45 ML/HR c 30 ML FLUSHES q4 HRS. LASIX STARTED THIS SHIFT, ROCHA PATENT, DRAINED 150 ML TORIBIO, CLOUDY URINE TO GRAVITY. PROPOFOL GTT CONTINUES AT 45 MCG/KG/MIN, FENT INCREASED PER DR MITCHELL TO 50 MCG/HR. LEVO ON STANDBY SINCE THIS AM. WILL CONTINUE TO MONITOR UNTIL REPORT TO ONCOMING NURSE.
--- NOTE | 2021-10-10 18:16 | NUR ---
Provided support for both pt's mom as well as case briefer. Pt's mom is unwilling to discuss any options other that are not taking the pt home with his mom, no matter the level of care. Senior Bookkeeper attempted to make the case for rehabilitation, but pt's mom is unwilling to discuss any option other than home. She v/u of the high risk of pt coming home.
--- NOTE | 2021-10-10 18:39 | NUR ---
UPDATE LUNGS VERY COARSE ON RIGHT SIDE, SCANT THIN SECRETIONS THROUGH ETT. VENT ALARMING LOW VOLUMES. SMALL AIR LEAK NOTED. ADDED 2 ML TO CUFF. DICUSSED c NOC RT.
--- NOTE | 2021-10-10 23:08 | NUR ---
PER MD ORDER, PT ABLE TO BE REPOSITION Q2H. AT AROUND 2100, REPOSITIONED PATIENT TO LEFT SIDE DOWN - PATIENT WAS SLOW TO RECOVER WITH OXYGEN SATURATIONS WAS DOWN AT 85%, INCREASED FIO2 UP 100%. AFTER 10 MINUTES PATIENT SATURATION WAS STILL 85% AND CONITNUING TO DECREASE. LOWEST O2 SATURATION WAS 81%. PT WAS IMMEDIATELY REPOSITIONED BACK TO RIGHT SIDE DOWN TOWARDS THE VENTILATOR. SATURATIONS WERE SLOWLY RECOVERING BUT NOW PT HAD AIR LEAK. NOTIFIED RT OF DESATURATION AND CUFF LEAK. PT STARTED PULLING LOW VOLUMES IN THE LOW TO MID 100's, RT ROMEO CHECKED CUFF PRESSURE AND ADJUSTED SETTINGS - PT STILL PULLING LOW VOLUMES DESPITE SAID INTERVENTIONS. PT ALSO HAD POOLED BLOOD IN BACK OF THROAT/MOUTH AREA WHICH WAS SUCTIONED BY RT WITH AROLDO. NOTIFIED MD LAZO VIA TELEPHONE REGARDING PATIENT CONDITION. OK TO INCREASE SEDATION IF NEEDED, AND OK NOT TO REPOSITION PT TONIGHT BECAUSE OF INCREASING OXYGEN DEMANDS AND UNRESOLVED AIR LEAK. DECIDED TO CHECK AIR LEAK ONE MORE TIME TO TRY RESOLVE THE LOW VOLUMES PT PULLING, I NOTICED WHEN TRACH WAS PUSHED IN MORE TO THE THROAT WITH PRESSURE PT VOLUMES RESOLVED BACK UP TO 250 ML TO 300 ML AND WHEN PRESSURE WAS TAKEN OFF PT VOLUMES WENT BACK DOWN TO LOW TO MID 100 ML. THEREFORE, TIED PART OF VENT/TRACH WITH ROLLED GAUZE TO BACK OF THE HEAD. PT NOW PULLING ADEQUATE VOLUMES. PT MOM STILL AT BEDSIDE AND IS SPENDING THE NIGHT. EXPLAINED TO MOM PT TX AND CARE PLAN AND EDUCATED HER ON VENT SETTINGS AND OXYGEN REQUIREMENTS. MOM SEEMS TO UNDERSTAND CARE PLAN AND WAS OK WITH THE ROLLED GAUZE TO KEEP VOLUMES UP. MOM SEEMS SATISFIED WITH CURRENT TX PLAN.
[2021-10-11 05:27] LABS: Albumin, Blood 2.6 g/dL (3.4-5.0); Anion Gap 6 mmol/L (6-16); Blood Urea Nitrogen 102 mg/dL (8-24); Bun/Creatinine Ratio 69.9 (12.0-20.0); CO2, Blood 31 mmol/L (21-32); Calcium, Blood 7.7 mg/dL (8.5-10.1); Chloride, Blood 100 mmol/L (98-108); Creatinine, Blood 1.46 mg/dL (0.60-1.20); Glomerular Filtration Rate 52 (60-); Glucose, Blood 197 mg/dL (70-99); Phosphorus, Blood 7.2 mg/dL (2.5-4.9); Potassium, Blood 4.7 mmol/L (3.5-5.5); Sodium, Blood 137 mmol/L (136-145)
[2021-10-11 05:56] LABS: Hematocrit 29.9 % (37.0-53.0); Hemoglobin 9.3 g/dL (13.5-17.5); Mean Corpuscular HGB Conc 31.1 g/dL (31.5-36.5); Mean Corpuscular Volume 97 fL (80-100); NRBC ABSOLUTE 0.57 K/mm3 (0.00-0.02); NRBC Auto 8.9 /100 WBC (0.0-0.2); Platelet Count 132 K/mm3 (150-400); RDW Coefficient Variation 19.2 % (11.7-14.2); RDW Standard Deviation 66.5 fL (35.1-46.3)
[2021-10-11 06:17] LABS: BAND PERCENT MAN 16 % (0-8); BASOPHILS PERCENT MAN 0 % (0-2); EOSINOPHILS PERCENT MAN 0 % (0-6); LYMPHOCYTES ABSOLUTE MAN 0.38 K/mm3 (0.84-5.20); LYMPHOCYTES PERCENT MAN 6 % (21-46); METAMYELOCYTE ABSOLUTE MAN 0.12 K/mm3 (0.00-0.00); METAMYELOCYTE PERCENT MAN 2 % (0-0); MONOCYTES ABSOLUTE MAN 0.32 K/mm3 (0.16-1.47); MONOCYTES PERCENT MAN 5 % (4-13); NEUTROPHILS ABSOLUTE MAN 5.56 K/mm3 (1.96-9.15); SEG NEUTROPHILS PERCENT MAN 71 % (41-73); TOTAL CELLS COUNTED 100
--- NOTE | 2021-10-11 06:28 | NUR ---
SHIFT SUMMARY: NEURO - AN INCREASE IN SEDATION OVERNIGHT DUE TO DESATURATION. NO MOVEMENT TO PAINFUL STIMULI ON ALL EXT. RESP - UNABLE TO GET PT OXYGEN SATURATION UP TO 90's. MD NOTIFIED OVERNIGHT REGARDING PATIENT CONDITION. VENT SETTINGS: AC/VC PEEP 18, FIO2 100, VOLUME 350 ML. SCANT RED TINGED SECRETIONS FROM TRACH. TRACH SITE REMAINS DRY WITH SURGICEL DRESSINGS STILL PACKED AT TRACH SITE. CUFF LEAK RESOLVED WITH HELP OF EXTRA HEAD TIES MADE WITH ROLLED GAUZE. NO FURTHER BLOOD SUCTIONED IN BACK OF THROAT/MOUTH. CARDIAC - INCREASE NEED IN LEVOPHED OVERNIGHT, NOW AT 14. TEMPERATURE ELEVATED TO 99.6 GAVE PRN ACETAMINOPHEN. EXTREMELY EDEMATOUS. GI/ - NO BM. ANURIC - 100ML OUT OVERNIGHT. TF REMAINS INFUSING. INTEG - ATTEMPTED TO REPOSITION PATIENT OVERNIGHT BUT PT WAS TOO UNSTABLE AND QUICKLY DESATED DOWN TO LOW 80'S WITH UNRESOLVING CUFF LEAK. MD AWARE AND OK'D TO KEEP PATIENT WITH RIGHT SIDE DOWN AND TOWARDS THE VENTILATOR. UNABLE TO ASSESS ANY WOUNDS OVERNIGHT, PICTURES WERE RECENTLY TAKEN. SCROTUM AND RAFAEL AREA WEEPING. INFUSION - PROPOFOL, FENT MASTER CONTROL TECHNICIAN, LEVOPHED, NORMAL SALINE CONCERNS - PICC LINE DOES NOT DRAW BACK BLOOD ON ANY LUMEN, IF BLOOD WAS DRAWING BACK BLOOD VERY SLUGGISH. REDRESSED PICC, FLUSHED AND ASPIRATED FOR BLOOD AFTRE REDRESSING BUT WAS UNSUCCESSFUL WITH ANY BLOOD RETURN. PT UNABLE TO BE REPOSITIONED OVERNIGHT, TOO UNSTABLE. MOM SPENT THE NIGHT AT BEDSIDE, SHE IS VERY CONCERN REGARDING PATIENT'S CONDITION - REASSURED AND EDUCATED HER AGAIN, RESTATED ICU TEAM IS GIVING THE BEST QUALITY PATIENT CENTERED CARE WE CAN GIVE TO SUPPORT HIS TX PLAN.
--- NOTE | 2021-10-11 09:54 | NUR ---
ASSUME CARE 0800 PATIENT IS IN BED ON THE VENTILATOR SEDATED ON 65 MCG OF PROPOFOL AND WITH FENTANYL ON CONTINOUS SENIOR ELECTRONICS DESIGN ENGINEER. HE IS NOT MOVING TO STIMULI. HIS OXYGENATION WAS SITTING AT 87% ON 100% FIO2 PEEP OF 18 TV 350 VOL CONT RATE OF 22, HOWEVER HIS TV HE WAS GETTING WAS MID 270'S. RT MOVED THE PEEP TO SEE OF IT WOULD ASSIST WITH TV AND AFTER 5 MIN HE DESATURATED TO 83%. DR MONTELONGO WAS CALLED, RT CHANGED PEEP TO 14 THEN 16 AND HIS OXYGENATION INCREASED SLOWLY TO 87%. HE WAS PUT INTO A HIGH HIGH GALLAGHER POSTION WITHOUT MANUALLY MOVING HIS BODY TO HELP OXYGENATE. PATIENT HAS AN INSPATORY SQUEEL TO RIGHT LOBES OF LUNG AND HAS AND END INSP. CRACKLE TO LEFT LOBES OF LUNGS. HIS ABD IS DESTENDED AND TAUGHT TO PALPATATIONS, HE HAS HYPO BOWEL TONES, TUBE FEEDING IS GOING AT GOAL INTO DOBBHOFF. HIS LOWER EXTREM AND UPPER EXTREM. ARE EDEMATOUS 3 + AND URINE OUTPUT IS LOW EVEN WITH DIURETICS GIVEN OVER NIGHT. DR IS AWARE OF I/O AND ADJUSTING MEDICATIONS (SEE EMAR). PATIENT IS ON LEVOPHED AT 14 MCG FOR A MAP 65 OR GREATER. NO OTHER ACUTE CHANGES AT THIS TIME. PATIENT IS TOO UNSTABLE TO MOVE HIM AT THIS TIME. DR MITCHELL IS AWARE AND AGREE'S TO NO ACTIVITY OR MINIMAL ACTIVITY AT THIS TIME. MOTHER IS AT BEDSIDE AND IS AWARE OF HIS CONDITION AND FRAILTY.
--- NOTE | 2021-10-11 16:15 | NUR ---
1420 reposition to reintubation Eddie had soaked sheets underneath him. He had been oxygenating at 93-95% for a few hrs. With Dr Rao agreement 4 staff members and RT at bedside lifted Eddie with lift, placed new sheets under him and sat his back on the bed. We then rolled him side to side to removed the sheets and redress the wound on his back which now there is a small blister just below the back wound and an opened blister just above the back wound. He was dressed quickly s/p cleans with spray and abd put in place. Upon ending the turn where he desaturated to 78% we layed him in fowlers position HOB at 45 degrees. His trach ties were being adjusted because air flow was coming from his "trach" then RT and RN noticed it was coming from his mouth and nose with increased force. Dr Rao was called to bedside where he decided to do an emergent bronch and placement of ETT. Upon the procedure for the bronch a large dark brown, dark red blood clot was found in his right mainstem. Once intubed with ETT and trach was plugged off his oxygenation increased to 88-90%. Mother was accompanied by staff during the emergent bronch and reintubation due to Eddie's oxygenation dropped to below 60% for at least 20 min and it was quite upsetting to her. Her brother came in and is now with her at bedside in Eddie's room. BP climbed and his levophed has been slowly titrated down to now 8mcg. Eddie has been getting bumex to aide in diuresising however he has only put out 20cc thus far since this morning. Continueing to care for Eddie this shift and due to his brittleness he is not being moved more at this time.
--- NOTE | 2021-10-11 17:13 | NUR ---
Spiritual Care Visit during team effort in ICU9. Contacted by laundry supervisor to head to ICU9 for spiritual care. Pt. is having a resp. event with many staff attending. Pts. mother is present, cathartic, and being lovingly cared for by the ICU staff. Pastorally prayed with Pt. and ICU nurse, Stayed with mother until Pt. stabilized. Facilitated a life review. Pt. mother has spent much of her life caring for family members who have passed. Through theraputic listening provide a calming presence. Another family member arrives. Mother verbalizes gratitude for the ENTIRE hospital staff for the care they are giving to her son.
--- NOTE | 2021-10-11 19:27 | NUR ---
End of shift with Dr Salas and Dr Rao at bedside Dr Salas came in at 1800 to look at trach. He pulled out lg amounts of clots from trach and suctioned out a significant amount of blood from trach. He repositioned the trach with Dr Rao's assistance. They pulled the ETT out once trach is secure. Was cleaning up the trach and blood from patients face and neck and {barely} touched the trach to place gauze under it since there is a gapping hole and there quickly was an air leak around trach again. Dr Rao was called to bedside and he called Dr Salas to come back. After some discussion to allow for further care of patient it was decided to place an ETT 8.0 since it's longer. It was sutured in place by Dr Salas at [address] Rao bronched through tube again and cleared a little more blood from trachea and then RT Zoran cut tube at 27cm to not have so much of the ETT hanging out. It was secured to neck with ETT securement device as well. X-ray was done to confirm placement and it showed the ETT was in his left main and his right lobes were julianne out. Dr Rao repositioned tube again... awaiting another x-ray to confirm new placement. Report given off to next on coming shift to assume care. Thanks to EVERYONE for there amazing support, teamwork, and care.!!!
--- NOTE | 2021-10-11 21:27 | NUR ---
Assumed Care @ 1915 MD Rao and RT still at bedside awaiting Xray. At this point, 8.0 ETT placed in trach stoma to replace the old 8.0 Shiley XLT. Pt oxygen saturations were in the low 80-85%. Post Xray, Jalen scoped patient to determine optimal placement of ETT. The tube was retracted slightly, and ended up at 14 at the stitching of trach stoma, ETT was cut to 24 and secured with ties. Vent Settings are PC/AC FiO2 100% and PEEP 16. Currently, patient is sedated and not responding to painful stimuli. Once patient is stable, per MD do not reposition pt overnight and ok to boost up in bed at semi fowlers position. 2 RNs use the ceiling lift to boost pt up in bed. Pt did not desaturation after mobilization. There is minimal bleeding at trach site - surgicel and sterile split gauze placed as trach dressing. Pt saturations are 92-93%. Pt.'s mom and family at bedside and are relieved that patient is doing better. Mom and uncle will be staying overnight.
[2021-10-12 00:52] LABS: Source, Urine Foley catheter
[2021-10-12 01:00] LABS: Appearance, Urine Cloudy (Clear); Bilirubin, Urine Neg (Neg); Blood, Urine 5+ (Neg); Color, Urine Amber (P-Yellow); Glucose Qualitative, Urine Neg (Neg); Ketones, Urine 1+ (Neg); Leukocyte Esterase, Urine 3+ (Neg); Nitrite, Urine Neg (Neg); Protein, Urine 3+ (Neg); Specific Gravity, Urine 1.015 (1.003-1.022); Urobilinogen, Urine NORM (Normal)
[2021-10-12 01:11] LABS: Bacteria Many /hpf; Yeast/Fungi Urine Many /hpf
[2021-10-12 01:12] LABS: Amorphous Light (0-Heavy)
[2021-10-12 01:17] LABS: Granular Casts Rare /lpf (0); Hyaline Casts 0-2 /lpf (0-2); Red Blood Cells, Urine 50-100 /hpf (0-2); White Blood Cells, Urine 25-50 /hpf (0-5)
[2021-10-12 01:18] LABS: Squamous Epithelial Cells Rare /hpf (Few)
[2021-10-12 04:12] LABS: Hematocrit 26.9 % (37.0-53.0); Hemoglobin 8.8 g/dL (13.5-17.5); Mean Corpuscular HGB 30.8 pg (26.0-34.0); Mean Corpuscular HGB Conc 32.7 g/dL (31.5-36.5); Mean Corpuscular Volume 94 fL (80-100); Mean Platelet Volume 11.9 fL (9.1-12.4); NRBC ABSOLUTE 1.68 K/mm3 (0.00-0.02); NRBC Auto 29.3 /100 WBC (0.0-0.2); Platelet Count 125 K/mm3 (150-400); RDW Coefficient Variation 19.6 % (11.7-14.2); RDW Standard Deviation 64.1 fL (35.1-46.3); Red Blood Cell Count 2.86 M/mm3 (4.30-5.90); White Blood Cell Count 5.73 K/mm3 (4.00-11.30)
[2021-10-12 04:29] LABS: Albumin, Blood 2.2 g/dL (3.4-5.0); Anion Gap 13 mmol/L (6-16); Blood Urea Nitrogen 123 mg/dL (8-24); CO2, Blood 26 mmol/L (21-32); Calcium, Blood 7.4 mg/dL (8.5-10.1); Chloride, Blood 94 mmol/L (98-108); Creatinine, Blood 2.05 mg/dL (0.60-1.20); Glomerular Filtration Rate 35 (60-); Glucose, Blood 209 mg/dL (70-99); Magnesium, Blood 2.8 mg/dL (1.6-2.4); Phosphorus, Blood 7.6 mg/dL (2.5-4.9); Potassium, Blood 4.3 mmol/L (3.5-5.5); Sodium, Blood 133 mmol/L (136-145)
[2021-10-12 04:38] LABS: BAND PERCENT MAN 10 % (0-8); BASOPHILS PERCENT MAN 0 % (0-2); EOSINOPHILS ABSOLUTE MAN 0.11 K/mm3 (0.00-0.68); EOSINOPHILS PERCENT MAN 2 % (0-6); LYMPHOCYTES ABSOLUTE MAN 0.63 K/mm3 (0.84-5.20); LYMPHOCYTES PERCENT MAN 11 % (21-46); METAMYELOCYTE ABSOLUTE MAN 0.11 K/mm3 (0.00-0.00); METAMYELOCYTE PERCENT MAN 2 % (0-0); MONOCYTES ABSOLUTE MAN 0.17 K/mm3 (0.16-1.47); MONOCYTES PERCENT MAN 3 % (4-13); NEUTROPHILS ABSOLUTE MAN 4.69 K/mm3 (1.96-9.15); SEG NEUTROPHILS PERCENT MAN 72 % (41-73); TOTAL CELLS COUNTED 100
--- NOTE | 2021-10-12 06:09 | NUR ---
SHIFT SUMMARY: NEURO - HEAVILY SEDATED FOR VENTILATOR COMPLIANCE OVERNIGHT. NO RESPONSE TO PAINFUL STIMULI. PERRLA @ 3. TITRATED PROP DOWN PER CLINICAL JUDGEMENT. RESP - OVERALL, DID REALY WELL TONIGHT. TOLERATED NEW TRACHEOSTOMY. VENT SETTINGS WERE UNCHANGED OVERNIGHT - PC/AC FIO2 100%, PEEP 16. SCANT SECRETIONS VIA TRACH TUBE. CARDIAC - BP LOW, LEVOPHED REQUIREMENTS INCREASED THROUGHOUT THE NIGHT. TITRATING LEVOPHED GTT TO MAINTAIN MAP OF >65. EDEMATOUS. FEBRILE - PRN ACETAMINOPHEN GIVEN. GI/: NO BM OVERNIGHT. TF INFUSING AT 45ML/HR VITAL HP. DECIDED TO IRRIGATE ROCHA SINCE THERE WAS LOW TO NO URINE OUTPUT FLOWING. IRRIGATED ROCHA WITH 100ML OUT AND IMMEDIATELY AN INCREASE IN URINE OUTPUT STARTED FLOWING OUT. I CONSULTED WITH MERCERIZER ABOUT INSERTING A NEW ROCHA SINCE OLD ROCHA WAS FROM 28 DAYS AGO, MERCERIZER AGREED IT WAS BEST TO CHANGE THE OLD ROCHA TO A NEW ONE. TOOK OLD ROCHA OUT, HAD COPIOUS SEDIMENT CLOGGING THE ROCHA CATHETER TIP. TOOK A PHOTO AND PLACED IN PT CHART. DIFFICULT INSERTION OF THE NEW ROCHA, ATTEMPTED TWICE AND WAS ABLE TO INSERT ROCHA. ONCE ROCHA WAS IN, THERE WERE MULTIPLE CLOTS AND THE URINE WAS TEA/BURGUNDY COLORED WITH SEDIMENTS. UA WAS SENT TO LAB. NEW ROCHA FLOWING WELL. OLD ROCHA CATHETER AFTER IRRIGATION HAD APPROX 2L OF URINE OUTPUT INTEG - PER PAULA, DID NOT REPOSITION PATIENT OVERNIGHT DUE TO THE NEW TRACH PLACED AT 1900. TOO UNSTABLE FOR BIG MOVEMENTS AND REPOSITIONING. UNABLE TO ASSESS PT WOUNDS TONIGHT. INFUSIONS - LEVOPHED, NORMAL SALINE, FENT PLUG MACHINE OPERATOR, PROPOFOL SOCIAL - PT MOM AND UNCLE STAYED AT BEDSIDE OVERNIGHT, THERE WERE BOTH VERY HELPFUL. EDUCATED FAMILY REGARDING TX PLAN. THEY ARE STILL NOT INTERESTED IN [facility]. CONCERN - LEVOPHED DEMAND INCREASING, PT MAP STILL UNDER 65 DESPITE LEVOPHED BEING AT 20. WILL RECOMMEND VASOPRESSIN FOR DAY SHIFT RN TO REQUEST
--- NOTE | 2021-10-12 10:56 | NUR ---
ASSUMED CARE REPORT FROM ANTIONE AYALA AT 0700. PT INTUBATED AND SEDATED. VENT SETTINGS AC/PC 22/0.85/16/100%. LUNGS COARSE THROUGHOUT. 8.0 ETT PLACED FOR TRACH, SUTURED AT 14 CM. DRIED BLOOD AROUND TRACH INSERTION SITE. SCANT SECRETIONS, THIN, CLEAR. O2 SATS >93%. SR ON MONITOR, RATE 90'S. LEVO GTT INFUSING AT SHIFT CHANGE, VASO ADDED. DIFFICULTIES OBTAINING RELIABLE BP. PULSES PAL, PT P/W/D. ABD FIRM, DISTENDED. HYPOACTIVE BT. TUBE FEEDS VIA DOBHOFF, 74 CM, AT GOAL 45 ML/HR c 30 ML FLUSH q4 HR. NO BM FOR SEVERAL DAYS, WILL ATTEMPT SUPPOSITORY THIS SHIFT. ROCHA PATENT, YELLOW URINE c SEDIMENT OUT. DR MITCHELL ROUNDS RESUME ADLS PER PROTOCOLS. DIURETICS D/C'D. DISCUSSED INCREASED PRESSOR REQUIREMENTS. 1L BOLUS OF LR GIVEN, VANCO ADDED. MOTHER AT BEDSIDE, UDPATED. WILL CONTINUE TO MONITOR.
--- NOTE | 2021-10-12 17:27 | NUR ---
SHIFT SUMMARY PT REMAINS INTUBATED AND SEDATED. VENT SETTINGS AC/PC 22/0.85/16/90%. LUNGS COARSE. MODERATE AMOUNT OF BRIGHT RED BLOOD FROM ETT. TRACH POSITIONAL, WHEN PT REPOSITIONED, AIR LEAK DEVELOPS AND TV FALL TO <100ML. CHANGED LINENS, PLACED RECTAL TUBE AND CHANGED DRESSING c DR MITCHELL IN ROOM SECURING TRACH. MINIMIZED ALL OTHER POSITION CHANGES. LARGE BROWN PASTY BM THIS SHIFT. PROPOFOL AND FENTANYL FOR SEDATION AND PAIN, PT UNRESPONSIVE. LEVO AND VASO GTT FOR MAP>65. 1L OF LR GIVEN THIS SHIFT c IMPROVED BP. VANCO ADDED. NSR ON MONITOR. TUBE FEED GOAL DECREASED TO 40 ML/HR. ROCHA PATENT, TORIBIO URINE c SEDIMENT OUT, 1700 ML OUT THIS SHIFT. WILL CONTINUE TO MONITOR UNTIL REPORT TO ONCOMING NURSE.
--- NOTE | 2021-10-12 18:50 | NUR ---
late entry 10/11/21 pt having difficulty with trach function. Tiem with mother and assisting bedside staff. Pt airway unstable and sats dropping. Theraputic time with mother. intesnivist spoke with her about prognsois and risk. At this point mother will not make him dnr. Had chaplian come for support his prognosis is grim. Industrial Maintenance Technician had many conversations with mother on code status and anoxic injusry she wants to press forward. kps score is 20%. pt high risk for sudden .
[2021-10-13 04:16] LABS: Hematocrit 26.4 % (37.0-53.0); Hemoglobin 9.6 g/dL (13.5-17.5); Mean Corpuscular HGB 33.2 pg (26.0-34.0); Mean Corpuscular HGB Conc 36.4 g/dL (31.5-36.5); Mean Corpuscular Volume 91 fL (80-100); Mean Platelet Volume 12.5 fL (9.1-12.4); NRBC ABSOLUTE 1.92 K/mm3 (0.00-0.02); NRBC Auto 43.9 /100 WBC (0.0-0.2); Platelet Count 121 K/mm3 (150-400); RDW Coefficient Variation 19.8 % (11.7-14.2); RDW Standard Deviation 62.3 fL (35.1-46.3); Red Blood Cell Count 2.89 M/mm3 (4.30-5.90); White Blood Cell Count 4.37 K/mm3 (4.00-11.30)
[2021-10-13 04:39] LABS: Bun/Creatinine Ratio 74.1 (12.0-20.0); Creatinine, Blood 1.66 mg/dL (0.60-1.20); Potassium, Blood 3.4 mmol/L (3.5-5.5)
[2021-10-13 05:10] LABS: BAND PERCENT MAN 8 % (0-8); BASOPHILS PERCENT MAN 0 % (0-2); EOSINOPHILS ABSOLUTE MAN 0.08 K/mm3 (0.00-0.68); EOSINOPHILS PERCENT MAN 2 % (0-6); LYMPHOCYTES ABSOLUTE MAN 0.87 K/mm3 (0.84-5.20); LYMPHOCYTES PERCENT MAN 20 % (21-46); METAMYELOCYTE ABSOLUTE MAN 0.08 K/mm3 (0.00-0.00); METAMYELOCYTE PERCENT MAN 2 % (0-0); MONOCYTES ABSOLUTE MAN 0.43 K/mm3 (0.16-1.47); MONOCYTES PERCENT MAN 10 % (4-13); MYELOCYTE ABSOLUTE MAN 0.17 K/mm3 (0.00-0.00); MYELOCYTE PERCENT MAN 4 % (0-0); SEG NEUTROPHILS PERCENT MAN 54 % (41-73); TOTAL CELLS COUNTED 50
[2021-10-13 05:13] LABS: Calcium, Blood 7.4 mg/dL (8.5-10.1)
--- NOTE | 2021-10-13 06:18 | NUR ---
SHIFT SUMMARY NEURO - PT STILL HEAVILY SEDATED WITH PROPOFOL FOR VENTILATOR COMPLIANCE AND UNSTABLE TRACH. NO MOVEMENT TO PAINFUL STIMULI. PER MD MITCHELL, NO MOVEMENT OR REPOSITIONING AT ALL NIGHT UNLESS PAULA IS PRESENT AT BEDSIDE. RESP - ETT TRACH IN PLACE. NO MAJOR ISSUES WITH AIR LEAK OR CUFF LEAK BUT AT AROUND 0600, TRACH DID START MAKING GURGLING/SNORING NOISES. PT WAS NOT MOVED OR REPOSITIONED, NOISES INITIATED SPONTENOUSLY AND MOM NOTIFIED ME IMMEDIATELY OF THE CHANGE. MINIMIAL ORAL AND TRACH SECRETIONS. CARDIAC - LEVOPHED AND VASOPRESSIN REMAINS INFUSING TO KEEP GREATER THAN 65. BP LABILE. BP DOES DROP SIGNIFICANTLY IF PRESSORS ARE PAUSED FOR A LITTLE BIT DURING BLOOD DRAWS OFF OF PICC LINE. FEBRILE AGAIN TONIGHT - GAVE PRN TYLENOL AND PT HAS ICE PACKS ALL OVER. STILL EXTREMELY EDEMATOUS. GI/ - TF REMAINS INFUSING. RECTAL TUBE IN PLACE WITH MINIMAL TO NO OUTPUT. ROCHA CATH PATENT, WITH ADEQUATE OUTPUT OVERNIGHT. INTEG - PER MD MITCHELL NO REPOSITIONING OR MOVEMENT AT NIGHT DUE TO UNSTABLE TRACH, THEREFORE UNABLE TO ASSESS ANY WOUNDS OVERNIGHT. INFUSIONS - VASOPRESSIN, LEVOPHED, NORMAL SALINE, FENT GEOSCIENCE PROFESSOR, PROPOFOL SOCIAL - MOM STAYED AT BEDSIDE OVERNIGHT. SHE DID EXPRESS HER INTEREST IN LEARNING MORE ABOUT [facility] IN [place]. I PRINTED HER INFORMATION OFF THE [facility] WEBSITE AND ENCOURAGED HER TO CALL THE FACILITY IF SHE HAS ANY SPECIFIC QUESTIONS. WAS VERY EMOTIONAL OVERNIGHT AND NEEDS MORE SUPPORT REGARDING PATIENT'S CONDITION.
--- NOTE | 2021-10-13 08:28 | NUR ---
ASSUMED CARE REPORT FROM ANTIONE AYALA AT 0700. PT INTUBATED AND SEDATED. VENT SETTINGS AC/PC 22/0.85/16/90%. LUNGS CLEAR BUT DIM. SCANT SECRETIONS FROM ETT, THIN, CLEAR. TRACH SUTURED AT 14CM, GAUZE IN PLACE. OCCASIONAL LEAK HEARD, TV 400'S. NO COUGH/GAG/SWALLOW REFLEX. UNRESPONSIVE TO PAINFUL STIMULI. PROPOFOL AND FENTANYL GTT FOR PAIN AND SEDATION. LEVO AND VASO FOR MAP>65. NSR ON MONITOR. RATE 90'S. ICE PACKS AND FAN IN PLACE FOR FEVER. ABD DISTENDED, FIRM, HYPOACTIVE BT X 4. TUBE FEEDS AT GOAL VIA DOBHOFF TO LEFT NARE, 74 CM. RECTAL TUBE IN PLACE, SCANT BROWN STOOL IN TUBE. ROCHA PATENT, DRAINING YELLOW URINE c SEDIMENT TO GRAVITY. PICC TO RUE. MOTHER AT BEDSIDE. WILL CONTINUE TO MONITOR.
--- NOTE | 2021-10-13 17:14 | NUR ---
SHIFT SUMMARY PT REMAINS INTUBATED AND SEDATED. VENT SETTINGS AC/PC 22/0.85/16/85%. O2 SATS 88-90%. LUNGS CLEAR, DIM IN BASES. SCANT DARK RED SECRETIONS THROUGH TRACH TUBE, ETT AT 14 CM AT NECK, OCCASIONAL AIR LEAK NOTED. TV 450-500ML. PRESSORS TITRATED DOWN THIS SHIFT, LEVO AT 4 MCG/MIN, VASO OFF. SEDATION ALSO TITRATED DOWN, PROPOFOL AT 30 MCG/KG/MIN, FENTANYL 50 MCG/HR. NOT RESPONSIVE TO PAINFUL STIMULI. NO COUGH/GAG/SWALLOW REFLEX. NO CORNEAL REFLEX. ABD FIRM, DISTENDED, HYPOACTIVE BT. SCANT BROWN LIQUID STOOL IN RECTAL TUBE. ROCHA PATENT, DRAINED 1900 ML YELLOW URINE c SEDIMENT TO GRAVITY. SKIN DIFFICULT TO ASSESS D/T INSTABILITY OF PT. DR MITCHELL REQUESTED HIS OR RT PRESENCE AT ALL TURNS. PT TOLERATED BOOST AND TURN TO SIDE c LIFT. MAINTAINED HOB AT 30 DEGREES D/T AIR LEAK. DID NOT ASSESS SCROTOM, LEFT FLANK WOUND OR BACK. MOTHER AWARE AND IN AGREEMENT c PLAN TO MINIMIZE FULL TURNS D/T TRACH AND O2 INSTABILITY. SKIN ON AXILLA SLOUGHING OFF, CLEANED, MYCONIZOLE POWDER APPLIED. WILL CONTINUE TO MONITOR UNTIL REPORT TO ONCOMING NURSE.
--- NOTE | 2021-10-13 17:59 | NUR ---
Spent time sitting with pt's mom today, provided therapeutic listening. She was tearful at this visit, and for the first time, she states she realizes the pt could have a poor outcome due to the critical nature of his current illness. She talked about their life together, reminisced about his high school days, and how much he means to her. She states she knows everyone working with the pt is doing their very best, and has no concerns with his care. Today the Mma Fighter Jaja informed her she has found a resource to assist with her rent for a month, as she currently has no income. She also gave her information about signing back up for social security monies, as she has been dependent on [facility] for her son. Palliaive care will remain available.
--- NOTE | 2021-10-14 00:57 | NUR ---
CYRIL REMAINS INTUBATED WITH ETT USED AT [facility], SUTURED AT STOMA SITE WITH ADDITIONAL PINK TAPE SECURED. MINIMAL SECRETIONS VIA SUCTIONING, WHAT DOES RETURN IS MAROON COLORED. AC/VC 22/.85/16/80%. NO POSITION CHANGES HAVE BEEN DONE OTHER THAN PILLOW REMOVAL PER MD ORDERS. FREQUENT ROM WITH ARMS AND LEGS, WRISTS AND ANKLES. ORAL CARE, SKIN CARE WITH LOTION, CATH CARE ALL COMPLETED. ABDOMEN LARGE AND TAUT, RECTAL TUBE WITH DARK COLOR IN IT, IRRIGATED WITH WARM WATER PER MOTHER'S REQUEST. ROCHA CONTINUES WITH CLEAR YELLOW IN THE LINE WITH CLOUDY SEDIMENT TRAVELING THROUGH THE TUBING. UNABLE TO LOOK AT THE BACK WOUND SACRUM OR SCROTAL SAC. PT'S ARMS AND FEET, SHOULDERS AND NECK REMAIN EDEMATOUS AND SKIN IS WEEPING FROM THE RIGHT HAND. MINI PANNUS SWOLLEN AND "BLISTERY" LOOKING. MOM HAS GONE HOME FOR THE NIGHT. WAS TALKING ABOUT HOW LIFE CHANGING THE TRANSFER TO [place] WILL BE FOR HER AND FOR HER SON.
[2021-10-14 03:29] LABS: Hematocrit 26.9 % (37.0-53.0); Mean Corpuscular HGB 30.7 pg (26.0-34.0); Mean Corpuscular HGB Conc 33.5 g/dL (31.5-36.5); Mean Corpuscular Volume 92 fL (80-100); Mean Platelet Volume 12.1 fL (9.1-12.4); NRBC ABSOLUTE 2.99 K/mm3 (0.00-0.02); NRBC Auto 61.3 /100 WBC (0.0-0.2); Platelet Count 107 K/mm3 (150-400); RDW Coefficient Variation 20.5 % (11.7-14.2); RDW Standard Deviation 63.7 fL (35.1-46.3); Red Blood Cell Count 2.93 M/mm3 (4.30-5.90); White Blood Cell Count 4.88 K/mm3 (4.00-11.30)
[2021-10-14 03:50] LABS: Albumin, Blood 1.9 g/dL (3.4-5.0); Albumin/Globulin Ratio 0.6 (0.8-1.8); Bun/Creatinine Ratio 78.8 (12.0-20.0); Calcium, Blood 7.7 mg/dL (8.5-10.1); Creatinine, Blood 1.56 mg/dL (0.60-1.20); Globulin, Blood 3.4 g/dL (2.2-4.0); Magnesium, Blood 2.6 mg/dL (1.6-2.4); Phosphorus, Blood 7.9 mg/dL (2.5-4.9); Total Protein, Blood 5.3 g/dL (6.4-8.2)
[2021-10-14 04:00] LABS: BAND PERCENT MAN 21 % (0-8); BASOPHILS PERCENT MAN 0 % (0-2); EOSINOPHILS PERCENT MAN 0 % (0-6); LYMPHOCYTES ABSOLUTE MAN 0.48 K/mm3 (0.84-5.20); LYMPHOCYTES PERCENT MAN 10 % (21-46); METAMYELOCYTE ABSOLUTE MAN 0.19 K/mm3 (0.00-0.00); METAMYELOCYTE PERCENT MAN 4 % (0-0); MONOCYTES ABSOLUTE MAN 0.48 K/mm3 (0.16-1.47); MONOCYTES PERCENT MAN 10 % (4-13); MYELOCYTE ABSOLUTE MAN 0.19 K/mm3 (0.00-0.00); MYELOCYTE PERCENT MAN 4 % (0-0); NEUTROPHILS ABSOLUTE MAN 3.51 K/mm3 (1.96-9.15); SEG NEUTROPHILS PERCENT MAN 51 % (41-73); TOTAL CELLS COUNTED 100
--- NOTE | 2021-10-14 04:30 | NUR ---
ASSUMED CARE. REPORT RECEIVED FROM KISHORE AYALA. PT IN BED, SEDATED AND VENTILATED VIA ETT/TRACH. VENT SETTINGS AC/PC 08/12//80%. IV PUMPS RUNNING LEVOPHED 10 MCG/MIN, PROPOFOL 30 MCG/KG/MIN, NS TKO X2. PICC IN LEODAN, WNL. ROCHA CATHETER IN PLACE. RECTAL TUBE IN PLACE. VS STABLE ATT, WILL CONTINUE TO MONITOR.
--- NOTE | 2021-10-14 06:32 | NUR ---
SHIFT SUMMARY. VENT SETTINGS UNCHANGED. PT REMAINS SEDATED/VENTILATED IN BED. IV PUMP SETTINGS UNCHANGED, VASOPRESSIN RE-STARTED FOR BP SUPPORT, 0.04 UNITS/MIN. PREVIOUS OCCUPATIONAL MEDICINE PHYSICIAN UNCHANGED THIS MORNING. VS STABLE ATT, SEE ASSESSMENTS FOR FURTHER DETAILS. ORDERS OBTAINED THIS MORNING FROM DR. BERGER FOR POTASSIUM REPLACEMENT. WILL CONTINUE TO MONITOR AND REPORT OFF TO DAYSHIFT RN.
--- NOTE | 2021-10-14 09:11 | NUR ---
ASSUMED CARE OF PT, REPORT RCV'D FROM JAMIE CLINE. PT VENTILATED, ETT TRACH SUTURED SECURELY IN PLACE. VENT SETTING UNCHANGE FROM PREVIOUS SHIFT. PROPOFOL @ 30 MCG/KG/MIN, PT UNRESPONSIVE TO VERBAL OR PAINFUL STIMULI. PUPILS 3MM EQUAL WITH BRISK REACTION. CUFF LEAK HEARD, RT AWARE. ABDOMEN FIRM AND DISTENDED, TUBE FEED CHP @40 ML/HR (CONFIRMED FEED WITH DIETARY) THROUGH DOBHOFF. PT HYPOTENSIVE, LEVOPHED @ 10, VASOPRESSIN ON. RECTAL TUBE PATENT AND DRAINING WATERY BROWN STOOL. TEMP ROCHA PATENT AND DRAINING TO GRAVITY. PT UNABLE TO TOLERATE REPOSITIONING D/T MEDICAL INSTABILITY. WILL CONFIRM WITH WELL DRILL OPERATOR ROTARY DRILL THAT THIS IS STILL THE PLAN. MOTHER AT BEDSIDE, UNDERSTANDS THE NEED TO MINIMIZE MOVEMENT. FENTANYL GTT @ 50MCG/HR. SEE FULL SHIFT ASSESSMENT.
--- NOTE | 2021-10-14 10:20 | NUR ---
ASSUMED CARE THIS AM FROM SWATHI AYALA SEDATION PLACED ON STAND BY FOR NEURO ASSESSMENT. AFTER APPROX 1.5 HR PT BEGAN TO OPEN EYES. LEFT EYE HAS UPWARD GAZE AND PT IS UNABLE TO TRACK. DOES NOT FOLLOW ANY COMMANDS. HR REMAINS IN LOW 100S, WITH PRESSORS FOR BP SUPPORT. SEE FLOW SHEET. REMAINS UNRESTRAINED, ETT SECURED. PT. MOTHER AT BEDSIDE.
[2021-10-14 10:59] LABS: Vancomycin, Trough 29.8 ug/mL (5.0-10.0)
--- NOTE | 2021-10-14 12:02 | NUR ---
Spiritual Care Visit. Prayed with mother of Pt. while the ICU team was cleaning wounds on the pt. Pts. mother displays evidence of the serious nature of the Pts. condition and watches he O2 levels closely while the team works with Pt. [place] with Pts. mother in the doorway while we observe. Pts. mother verbalizes gratitude for all the individuals who are caring for her son, as well as the spiritual care visit.
--- NOTE | 2021-10-14 12:06 | NUR ---
OKAY PER DR. SOSA TO REPOSITION PT AT THIS TIME WITH THE ASSIST FROM RT. PT TURNED WITH 6 RNS, AND 1 RT, WOUND CARE DONE WITH NEW PICTURES, AND RAFAEL CARE COMPLETED. PT. SKIN BLEEDING ON SCROTUM, AND WOUNDS FOULD SMELLING, CLEANDED AND REDRESSED. NEW LINENS PLACED. PT. TOLERATED TURN WELL. TRACH CARE COMPLETED, PT CONTINUES TO HAVE MINIMAL OOZING FROM AROUND TRACH STOMA. RECTAL TUBE CONTINUES TO DRAIN TO GRAVITY. PT REMAINS OFF OF PROPOFOL AT THIS TIME.
--- NOTE | 2021-10-14 16:55 | NUR ---
SHIFT SUMMARY PT REMAINS OFF PROPOFOL T/O SHIFT HOWEVER REMAINS ON FENTANYL GTT CONTINUES AT 50MCG/HR PT. VENT SETTINGS UNCHANGED T/O DAY, REMAINS ON ACPC 22, [id number], PEEP 16, 80%. MINIMAL BLEEDING FROM AROUND TRACH STOMA. LS COARSE WITH DARK RED SECREATIONS WITH DEEP SUCTION. DOBHOFF IN PLACE, TF CHANGED TO PIVOT 1.5 AT 40ML/HR PER DIETITIAN. PT REMAINS ON LEVOPHED GTT, TITRATED DOWN THIS SHIFT TO 7MCG/MIN AND REMAINS ON VASOPRESSIN AT 0.04U/MIN. PT ABD REMAINS FIRM, LIQUID STOOL CONTINUES THIS SHIFT, DRAINING VIA RECTAL TUBE. ROCHA DRAINING TO GRAVITY, AFEBRILE. PT. WOUND CARE COMPLETED THIS SHIFT AND NEW PHOTOS OBTAINED. OKAY PER DR. SOSA TO BEGIN REPOSITIONING, RT TO BE NOTIFIED TO ASSIST FOR AIRWAY MANAGEMENT. NO ACUTE CHANGES T/O SHIFT. REPORT TO ONCOMING RN.
[2021-10-15 03:57] LABS: Hematocrit 26.5 % (37.0-53.0); Hemoglobin 8.7 g/dL (13.5-17.5); Mean Corpuscular HGB 29.6 pg (26.0-34.0); Mean Corpuscular HGB Conc 32.8 g/dL (31.5-36.5); Mean Corpuscular Volume 90 fL (80-100); Mean Platelet Volume 11.9 fL (9.1-12.4); NRBC ABSOLUTE 6.49 K/mm3 (0.00-0.02); NRBC Auto 131.6 /100 WBC (0.0-0.2); Platelet Count 100 K/mm3 (150-400); RDW Coefficient Variation 21.1 % (11.7-14.2); RDW Standard Deviation 62.5 fL (35.1-46.3); Red Blood Cell Count 2.94 M/mm3 (4.30-5.90); White Blood Cell Count 4.93 K/mm3 (4.00-11.30)
[2021-10-15 04:18] LABS: Anion Gap 13 mmol/L (6-16); Blood Urea Nitrogen 124 mg/dL (8-24); Bun/Creatinine Ratio 93.2 (12.0-20.0); CO2, Blood 25 mmol/L (21-32); Calcium, Blood 8.1 mg/dL (8.5-10.1); Chloride, Blood 99 mmol/L (98-108); Creatinine, Blood 1.33 mg/dL (0.60-1.20); Glomerular Filtration Rate 58 (60-); Glucose, Blood 237 mg/dL (70-99); Magnesium, Blood 2.5 mg/dL (1.6-2.4); Phosphorus, Blood 6.1 mg/dL (2.5-4.9); Potassium, Blood 2.8 mmol/L (3.5-5.5); Sodium, Blood 137 mmol/L (136-145); Vancomycin, Random 25.2 ug/mL
[2021-10-15 05:32] LABS: BAND PERCENT MAN 33 % (0-8); BASOPHILS PERCENT MAN 0 % (0-2); EOSINOPHILS ABSOLUTE MAN 0.04 K/mm3 (0.00-0.68); EOSINOPHILS PERCENT MAN 1 % (0-6); LYMPHOCYTES ABSOLUTE MAN 0.44 K/mm3 (0.84-5.20); LYMPHOCYTES PERCENT MAN 9 % (21-46); MONOCYTES ABSOLUTE MAN 0.29 K/mm3 (0.16-1.47); MONOCYTES PERCENT MAN 6 % (4-13); MYELOCYTE ABSOLUTE MAN 0.04 K/mm3 (0.00-0.00); MYELOCYTE PERCENT MAN 1 % (0-0); NEUTROPHILS ABSOLUTE MAN 4.09 K/mm3 (1.96-9.15); SEG NEUTROPHILS PERCENT MAN 50 % (41-73); TOTAL CELLS COUNTED 100
--- NOTE | 2021-10-15 06:16 | NUR ---
SHIFT SUMMARY: CYRIL CONTINUES ON VENTILATOR AC/VC 22/0.85/80%/16 VIA TRACH INCISION WITH ETT SIZE 8.0 SUTURED AT 14CM. HIS LUNGS ARE DIMINISHED ON THE RIGHT, MOSTLY CLEAR. MINIMAL AIR LEAK HEARD THIS SHIFT. SATS HAVE REMAINED >94%. HE WAS REPOSITIONED WITH RESPIRATORY THERAPY IN ATTENDANCE HOLDING THE TUBE. HE TOLERATED WELL EACH TIME UNTIL 0430 THIS AM WHEN HE WAS INCONTINENT OF LARGE AMOUNT OF BM THAT WENT COMPLETELY UP HIS BACK AND DOWN HIS LEGS. WHILE TURNING WITH 4 STAFF AND RT HE DID DROP SATS TO MID 70'S, HE RECOVERED WELL. RT REMAINED HOLDING HIS TUBE THE ENTIRE TIME. HIS WOUNDS WERE REDRESSED ON HIS BACK, IMPROVEMENT IN THE SIGHT FROM THE LAST TIME VISUALIZED BY THIS RN. LEFT SUPERIOR BLISTER WOUND REDRESSED WITH A CLOVER. SKIN FOLDS DRY AND POWDERED, SKIN UNDER AXILLA CONTINUES SLOUGHING. RIGHT HAND REMAINS WEEPING. DRESSING FOR RIGHT UPPER ARM PICC CHANGED IT WAS PEELING OFF. CYRIL CONTINUES ON NOREPINEPHRINE AT 8MCG, VASOPRESSIN ON SB, FENTANYL GTT @ 50MCG/HR CONTINUOUS. TUBE FEEDING VIA DOBBHOFF, PIVOT 1.5 @ 40ML/HR. ABDOMEN LARGE, ROUND, LESS FIRM THAN PREVIOUS DAYS. ROCHA TO GRAVITY DRAINAGE WITH IMPROVEMENT IN COLOR AND SEDIMENT. HEELS, ELBOWS, WRISTS, KNEES REMAIN DRY AND SCALY. LEFT EYE CONT WITH SCLERAL EDEMA. HE OPENS HIS EYES TO VOICE, DOES NOT FOLLOW COMMANDS. HE DOES GET TEARFUL WHEN FAMILY IN HIS FACE. TOLERATES REPOSITIONING WELL, LIKING THE RIGHT SIDE DOWN BETTER THAN THE LEFT. HANDS AND FEET REMAIN EDEMATOUS, DOES THE SCROTUM AND MINI PANNUS. WILL CONTINUE TO MONITOR AND TREAT, REPORT TO NEXT SHIFT WHEN ABLE.
--- NOTE | 2021-10-15 08:00 | NUR ---
PT AWAKENS TO VOICE AND IS TRACKING. PT DID OPEN HIS MOUTH TO COMMAND TO ALLOW FOR ORAL CARE. NO NOTED MOVEMENT OF EXTREMITIES NOTED. FENTANYL CONTINUOUS @ 25 MCG/HR. CPOT 0 AT THIS TIME. TEMP 99.5 ECG SHOWS SR WITH RATE 80'S. MAP TRENDING > 65 WITH LEVOPHED @ 6 MCG/MIN. VASOPRESSIN REMAINS OFF. LUNGS COARSE TO UPPER LOBES AND DIMINISHED IN THE BASES. 8.0 ETT REMAINS SUTURES IN PLACE- TO TRACH. CLEANSED SKIN AROUND THE STOMA-VERY CAREFULLY. THERE WAS A MODERATE AMOUNT OF OLD, DRIED BLOOD. VENT:AC/PC , PEEP 16, FIO2 80% SATS IN THE UPPER 90'S AT THIS TIME. DOBHOFF IN PLACE-PT TOLERATING TF WELL-PIVOT @ 40 CC/HR. NO RESIDUAL. KCL REPLACEMENT INFUSING. SEE EMAR. RECTAL TUBE WITH MODERATE AMOUNT OF BROWN, LIQUID STOOL. WILL ASSESS FOR LEAKAGE WHEN MULTIPLE STAFF MEMBERS AND RT AVAILABLE TO ASSIST WITH TURNING. PT HANDS AND FEET REMAIN DRY AND EDEMATOUS. LOTION APPLIED AND UPPER EXTREMITIES ELEVATED ON PILLOWS. ANTIFUNGAL POWDER APPLIED TO SKIN FOLDS TO UPPER BODY. CATH CARE DONE WITH SOAP AND WATER. WILL COMPLETE SKIN CARE, WOUND CARE, RAFAEL CARE, AND RECTAL TUBE CARE WHEN STAFF AVAILABLE. ROCHA TO BEDSIDE DRAINAGE WITH MODERATE AMOUNT OF YELLOW URINE OUTPUT. PT MOTHER SLEEPING IN THE RECLINER CHAIR. WILL UPDATE TO STATUS AND PLAN OF CARE WHEN SHE AWAKENS.
--- NOTE | 2021-10-15 09:30 | NUR ---
WOUND/SKIN CARE COMPLETED, RECTAL TUBE AND RAFAEL CARE DONE. 4 STAFF MEMBERS AND RT PRESENT. PT TOLERATED WELL. SEE SKIN/WOUND REASSESSMENT. RAFAEL AREA AND SCROTUM VERY EXCORIATED AND MACERATED IN AREAS-CALAZIME APPLIED. DR. SOSA IN TO SEE PT-FIO2 DECREASED TO 65%-SATS >90%
--- NOTE | 2021-10-15 12:30 | NUR ---
PT MED WITH FENTANYL 50 MCG IVP X 1 FOR CPOT 4. NOW CPOT 0. PT REMAINS AFEBRILE. HR 100'S ST. MAP TRENDING >65 WITH LEVOPHED @ 4 MCG/MIN. MAINTAINS SATS>90% ON FIO2 65%. SUCTION PRODUCTIVE OF LARGE AMOUNT OF THICK, OLD, BLOODY SECRETION. SPUTUM SPECIMEN SENT. ETCO2 20. PT CONTINUES TO TOLERATE DOBHOFF TF WELL. RECTAL TUBE BAG CHANGED-CONTINUES TO DRAIN A MODERATE TO LARGE AMOUNT OF BROWN, LIQUID STOOL. PT REPOSITIONED TO LEFT SIDE UTILIING CEILING LIFT. RT AT BEDSIDE. PT TOLERATED TURN WITHOUT DESATURATING.
--- NOTE | 2021-10-15 14:45 | NUR ---
PT GRIMACING AND NODDED "YES" WHEN ASKED IF IN PAIN-MED WITH FENTANYL 50 MCG IVPX1 SEE EMAR.
--- NOTE | 2021-10-15 16:30 | NUR ---
NO ACUTE NEURO CHANGES. CPOT 4-MED WITH FENTANYL 50 MCG IVP-SEE EMAR. RAFAEL CARE, RECTAL TUBE CARE COMPLETED AND DRY FLOW PADS CHANGED. PT REPOSITIONED TO RIGHT SIDE. TOLERATED WELL. MAINTAINS SATS>90% ON FIO2 65% DRESSINGS C/D/I. FOAM DRESSING PLACED TO WOUND ON THE BACK OF PT HEAD.
--- NOTE | 2021-10-15 17:35 | NUR ---
PT HAS MULTIPLE FAMILY MEMBERS AT BEDSIDE. PT IS TEARFUL. BP ELEVATED. LEVOPHED DRIP IS OFF. SATS TRENDING 86-88% ON FIO2 65%. PT REPOSITIONED TO SUPINE POSITION. HOB ELEVATED-EXTREMITIES ON PILLOWS.
--- NOTE | 2021-10-15 18:42 | NUR ---
DR. SOSA CONTACTED. AWARE THAT BP TRENDING 180'S/100'S-PRESSORS OFF. ALSO, DR. SOSA UPDATED OF 1600 LAB RESULTS-NO NEW ORDERS AT THIS TIME.
--- NOTE | 2021-10-15 19:15 | NUR ---
ASSUMED CARE OF CYRIL, HE IS LYING IN BED WITH VENT AC/VC 22 RATE 0.85/16/65% TO TRACH, ETT SUTURED IN PLACE AT 14CM. CLEAN DRAINAGE SPONGE AROUND IT. LUNGS CLEAR BUT DIMINISHED IN THE BASES, SATS 93%, TEMP NORMAL. BELLY LARGE ROUND DISTENDED, TAUT, RECTAL TUBE TO GRAVITY, TUBE FEEDING PIVOT @ 40ML/HR VIA DOBBHOFF, ROCHA TO GRAVITY DRAINAGE WITH YELLOW RETURN IN TUBING WITH CLOUDY SEDIMENT. SCD'S IN PLACE, SKIN DRY AT ELBOWS, WRISTS, FINGERS, KNEES, HEELS AND TOES, SKIN CARE DONE. CYRIL OPENS HIS EYES TO VOICE, TRIES TO FOLLOW VOICE, NYSTYGMUS PRESENT. FAMILY AT BEDSIDE, NO SPONTANEOUS MOVEMENT OF EXTREMITIES NOTED AT THIS TIME. WILL DO TURNS WITH RESPIRATORY THERAPY.
--- NOTE | 2021-10-15 21:57 | NUR ---
MARCIANO FROM RESPIRATORY THERAPY AVAILABLE FOR TURN, CYRIL LIFTED AND REPOSITIONED IN BED, ONTO HIS RIGHT SIDE WITH LARGE AMOUNT OF PILLOWS BEHIND THE LEFT SIDE, HE IS NOW RESTING QUIETLY, BLOOD PRESSURE HAS COME DOWN SIGNIFICANTLY WITH THE TURN. WILL CONTINUE TO ASSESS AND ADDRESS NEEDED. FAMILY CONTINUES AT THE BEDSIDE.
--- NOTE | 2021-10-16 01:48 | NUR ---
CYRIL WAS TURNED WITH 4 PERSON + RESPIRATORY THERAPY, DRY FLOWS CHANGED UNDER NEATH HIM AND BARRIER CREAM PLACED ON SCROTUM AND BUTTOCKS. LEFT FLANK WOUND DRESSING REMAINED C/D/I. NOTED RIGHT SHOULDER BRUISING/DISCOLORATION UPON THE BLADE. BLISTER REMAINS ON THE RIGHT SIDE/FLANK INTACT. TOLERATED WELL.
[2021-10-16 04:12] LABS: Hematocrit 24.6 % (37.0-53.0); Mean Corpuscular HGB 29.9 pg (26.0-34.0); Mean Corpuscular HGB Conc 32.5 g/dL (31.5-36.5); Mean Corpuscular Volume 92 fL (80-100); Mean Platelet Volume 12.1 fL (9.1-12.4); NRBC ABSOLUTE 6.72 K/mm3 (0.00-0.02); Platelet Count 68 K/mm3 (150-400); RDW Coefficient Variation 22.2 % (11.7-14.2); RDW Standard Deviation 65.1 fL (35.1-46.3); Red Blood Cell Count 2.68 M/mm3 (4.30-5.90); White Blood Cell Count 2.24 K/mm3 (4.00-11.30)
[2021-10-16 04:28] LABS: Anion Gap 13 mmol/L (6-16); Blood Urea Nitrogen 135 mg/dL (8-24); Bun/Creatinine Ratio 103.8 (12.0-20.0); CO2, Blood 24 mmol/L (21-32); Calcium, Blood 8.2 mg/dL (8.5-10.1); Chloride, Blood 103 mmol/L (98-108); Glomerular Filtration Rate 60 (60-); Glucose, Blood 229 mg/dL (70-99); Magnesium, Blood 2.5 mg/dL (1.6-2.4); Phosphorus, Blood 5.6 mg/dL (2.5-4.9); Potassium, Blood 3.4 mmol/L (3.5-5.5); Sodium, Blood 140 mmol/L (136-145); Vancomycin, Random 19.7 ug/mL
[2021-10-16 05:34] LABS: BAND PERCENT MAN 13 % (0-8); BASOPHILS PERCENT MAN 0 % (0-2); EOSINOPHILS PERCENT MAN 0 % (0-6); LYMPHOCYTES ABSOLUTE MAN 0.44 K/mm3 (0.84-5.20); LYMPHOCYTES PERCENT MAN 20 % (21-46); METAMYELOCYTE ABSOLUTE MAN 0.06 K/mm3 (0.00-0.00); METAMYELOCYTE PERCENT MAN 3 % (0-0); MONOCYTES ABSOLUTE MAN 0.31 K/mm3 (0.16-1.47); MONOCYTES PERCENT MAN 14 % (4-13); MYELOCYTE ABSOLUTE MAN 0.06 K/mm3 (0.00-0.00); MYELOCYTE PERCENT MAN 3 % (0-0); NEUTROPHILS ABSOLUTE MAN 1.34 K/mm3 (1.96-9.15); SEG NEUTROPHILS PERCENT MAN 47 % (41-73); TOTAL CELLS COUNTED 100
--- NOTE | 2021-10-16 06:05 | NUR ---
CYRIL WAS TURNED AGAIN WITH RESPIRATORY THERAPY, TOLERATING WELL. HE THEN BEGAN GETTING RESTLESS AND GRIMACING, FIGHTING WITH VENTILATOR, SHAKING AND MOVING THAT LEFT SHOULDER. HE WAS REPOSITIONED SLIGHTLY WITH THE PILLOWS, AT ONE POINT NODDING TO THIS RN THAT HE WAS "BETTER". HE SEEMED TO BECOME RESTLESS AGAIN AND HE WAS GIVEN FENTANYL ADJUNCT WITH MINIMAL RELIEF, THEN GIVEN ATIVAN. HE HAS BEEN RESTING WELL SINCE THE ATIVAN WAS GIVEN AND THE SLIGHT ADJUSTMENT IN THE POSITION. HE IS ON HIS RIGHT SIDE DOWN AND HIS SATS HAVE BEEN 97%. HE HAD GOOD URINE OUTPUT, SLOWING OF THE RECTAL TUBE OUTPUT, PRESSORS HAVE REMAINED OFF WITH MAP'S >65. FAMILY HOME JUST AFTER MIDNIGHT. WILL REPORT OFF WHEN NEXT SHIFT AVAILABLE.
--- NOTE | 2021-10-16 08:00 | NUR ---
PT OPENS EYES TO VOICE AND MAKES EYE CONTACT.NO MOVEMENT OF EXTREMITIES NOTED. PT DOES LIFT HIS HEAD AND SHIFT HIS SHOULDERS WITH AGITATION. PT GRIMACING AND COUGHING. MED WITH ATIVAN 2 MG IVP X 1 AND FENTANYL 50 MCG IVP X 1. FENTANYL CONTINUOUS REMAINS AT 25 MCG/HR. ECG SHOWS SR WITH RATE 90'S. MAP TRENDING 65-70 NO PRESSORS. 8.0 ETT TO TRACH STOMA 14 CM-SUTURES INTACT. SMALL AMOUNT OF THICK, BLOODY DRAINAGE NOTED. CLEANSED WITH NS AND NEW DRAIN SPONGE PLACED. VENT AC/PC , PEEP 16, FIO2 55% AND SATS>90% ETT SUCTION PRODUCTIVE OF MODERATE AMOUNT OF THICK, OLD, BLOODY SECRETIONS. LUNGS DIMINISHED IN THE BASES. PT CONTINUES TO TOLERATE DOBHOFF TUBE FEEDS WELL. RECTAL TUBE CONTINUES TO DRAIN MODERATE AMOUNT OF BROWN, LIQUID STOOL. ROCHA LEAKING AROUND THE MEATUS. PT GIVEN PARTIAL BATH, LINEN CHANGE, AND WOUND CARE COMPLETED. CALAZIME TO EXCORATIONS TO SCROTUM. DRESSING INTACT TO THE BACK OF PT NECK. RIGHT SHOULDER WOUND APPEARS WORSE THAT 10/15/21 ASSESSMENT. MODERATE AMOUNT OF SLOUGH NOTED. CLEANSED WITH WOUND CLEANSER, PATTED DRY, THEN ALGINATE PLACED AND COVERED WITH FOAM DRESSING. THE LEFT FLANK WOUND UNCHANGED FROM 10/15/21 ASSESSMENT. CLEANSED WITH WOUND CLEANSER, PATTED DRY, ALGINATE PADS PLACED, THEN COVERED WITH ABD. LEFT BUTTOCK BLISTER UNCHANGED FROM 10/15/21 THE BLISTER HAS NOT OPENED-NEW FOAM DRESSING PLACED. RECTAL TUBE AND RAFAEL CARE DONE, THEN CALAZIME TO EXCORIATED AREA- MILD IMPROVEMENT FROM 10/15/21 ASSESSMENT. ROCHA STILL DRAINAING MODERATE AMOUNT OF CLEAR, YELLOW URINE-DESPITE THE LEAKAGE AROUND THE CATHETER. IT APPEARS THAT WHEN THE HOB IS ELEVATED PAST 30 DEGREES, PT PANUS PRESSES DOWN ON THE ROCHA BEGINS LEAKING.PT MOTHER UPDATED TO CURRENT STATUS AND PLAN OF CARE.
--- NOTE | 2021-10-16 11:00 | NUR ---
DR. SOSA IN TO SEE PT. UPDATE GIVEN. VENT CHANGED TO PS 12, PEEP 16, FIO2 55% GOAL SAT >87% RR 14 AND SATS TRENDING 89%
--- NOTE | 2021-10-16 12:00 | NUR ---
PT CONTINUES ON PS 12, PEEP 16, FIO2 55% RR 14-20. SATS >87% NO OTHER ACUTE CHANGES.
--- NOTE | 2021-10-16 12:55 | NUR ---
PT CRYING. SATS DOWN TO 83%. CHANGED OVER TO PREVIOUS SETTINGS, BUT PT STACKING HIS BREATHS AND SATS TRENDING 85% MED WITH FENTANYL AND ATIVAN FOR PAIN/AGITATION. DR. SOSA CONTACTED ORDERS GIVEN TO ANDREINA ZIMMERMAN TO CHANGE VENT TO VC+ WITH TV 450. ALSO, ORDER GIVEN TO RESUME PROPOFOL DRIP PRN.
--- NOTE | 2021-10-16 13:30 | NUR ---
PT CONTINUES TO STACK BREATHES ON THE VENT AND SATS TRENDING LESS THAN 90% PROPOFOL DRIP INITIATED @ 25 MCG/KG/MIN. FIO2 @ 65% AND SATS TRENDING 88-89%
--- NOTE | 2021-10-16 13:45 | NUR ---
SATS STILL TRENDING LESS THAN 90% FIO2 TITRATED UP TO 75%
--- NOTE | 2021-10-16 16:00 | NUR ---
PT RESTING QUIETLY ON VENT WITH PROPOFOL @ 25 MCG/KG/MIN. SATS TRENDING 90% ON FIO2 75%. PT TURNED TO LEFT SIDE FOR RAFAEL CARE, RECTAL TUBE, SKIN CARE, AND DRY FLOW PAD CHANGE HE WAS INCONTINENT OF A SMALL AMOUNT OF STOOL AROUND THE RECTAL TUBE. PT THEN REPOSITIONED TO COMFORT ON RIGHT SIDE. SATS 80'S FIO2 TITRATED UP TO 100%
--- NOTE | 2021-10-16 17:30 | NUR ---
DR. SOSA CONTACTED AT PT SATS STILL 88% ON FIO2 100% PT MEDICATED WITH FENTANYL PAIN/SEDATION ADJUNCT, BUT IT DID NOT IMPROVE SATS. ORDER GIVEN TO CHANGE VENT TO PC VENTILATION WITH THE SAME I TIME PREVIOUS SETTING-RT ANDREINA MADE AWARE.
--- NOTE | 2021-10-16 20:00 | NUR ---
ASSUMED CARE NOTE; ASSUMED CARE OF PT AT 1900. PT IS SEDATED WITH PROPOFOL AT 25MCG/KG/MIN, FENTANYL AT 25MCG/HR. PT HAS EYES OPEN, PER REPORT HE "REST" WITH HIS EYES OPEN, PT NOT TRACKING. PT UNABLE TO RESPOND TO PAINFUL STIMULI. ETT IN TRACH IS 14CM AT THE STOMA. DRIED BLOOD DRAINAGE NOTED TO DRAINGE SPONGE, REQUESTING RT TO ASSIST WITH STOMA CARE. VENT SETTINGS [employer]INCIPAL RR 22,IP18, PEEP 16, FiO2 80% SPO2 96% SUCTION PERFORMED VIA INLINE SMALL AMOUNTS OF THICK RED/MCRAE SECRETIONS NOTED, NO COUGH REFLEX NOTED. PROPOFOL DECREASED TO 20MCG/KG/MIN. PT VENTILATING WELL. ORAL CARE PROVIDED. PT IS SINUS RHYTHM WITH HR IN THE 90'S, BLOOD PRESSURE STABLE, PULSES STRONG IN BILATERAL RADIAL AND PEDAL PULSES. PT EDEMATOUS T/O. ABD OBESE, ROUND, ACTIVE BOWEL TONES , RECTAL TUBE IN PLACE, BROWN LIQUID STOOL NOTED. ROCHA DRAINING TO GRAVITY, YELLOW COLOR URINE NOTED, WITH SEDIMENT. HOB 30 DEGREE.
--- NOTE | 2021-10-16 22:00 | NUR ---
UPDATE; CALLED RT TO BEDSIDE TO ASSIST WITH TURN AND LINEN CHANGE. 4 ADDITIONAL STAFF AT BEDSIDET TO ASSIST. RT STABILIZING/MANAGING AIRWAY, FiO2 INCREASED TO 100% PT TURNED TOWARDS THE VENT, LINEN WAS CHANGED, RAFAEL/ROCHA CARE PROVIDED, AFTER 3 MINUTES PT BEGAN TO DESATURATE TO 77%, CARE STOPPED AND PT WAS BOOSTED IN BED, HOB 30 DEGREES. FiO2 MAINTAINED AT 100% TO AID IN RECOVERY. PT WAS BREATHING OVER THE VENT 26-28, LOW TIDAL VOLUMES NOTED, WORK OF BREATHING INCREASED. PROPOFOL INCREASED BACK TO 25MCG/KG/MIN. LEVOPHED STARTED LOW DOSE FOR MAP BELOW 65. SPO2 BETWEEN 88-91% WILL DECREASE AMOUNT OF STIMULATION AND TURNS PT IS UNABLE TO TOLERATE TURNS AT THIS TIME.
--- NOTE | 2021-10-17 01:30 | NUR ---
UPDATE: PT SLIDING DOWN IN BED, CAUSING HIM TO OBSTRUCT HIS AIRWAY. RT AND ADDITIONAL STAFF AT BEDSIDE TO ASSIST. USED CEILING LIFT TO BOOST AND REMOVE PILLOWS FROM LEFT SIDE. PT TOLERATED WELL, PT IN SUPINE POSITION WITH HOB 30 DEGREES AFTER 15 MINUTES SPO2 IMPROVED FROM 90 TO 94% , PT IN SYNC WITH VENT. LEVOPHED TITRATED TO MAINTAIN MAP ABOVE 65, CURRENT RATE 0.6MCG/MIN, BP VERY LABILE TO MEDICATION. ROCHA FLUSHED WITH 10CC NO URINE WAS NOTED FOR THE LAST HOUR, AFTER FLUSH 150ML OF URINE WAS DRAINED. ROCHA MAY NEED INTERMIT FLUSHES TO MAINTAIN PATENCY.
[2021-10-17 05:19] LABS: Hematocrit 27.3 % (37.0-53.0); Hemoglobin 8.7 g/dL (13.5-17.5); Mean Corpuscular HGB 30.3 pg (26.0-34.0); Mean Corpuscular HGB Conc 31.9 g/dL (31.5-36.5); Mean Corpuscular Volume 95 fL (80-100); Mean Platelet Volume 12.3 fL (9.1-12.4); Platelet Count 59 K/mm3 (150-400); RDW Coefficient Variation 24.1 % (11.7-14.2); RDW Standard Deviation 74.3 fL (35.1-46.3); Red Blood Cell Count 2.87 M/mm3 (4.30-5.90); White Blood Cell Count 1.99 K/mm3 (4.00-11.30)
[2021-10-17 05:41] LABS: Calcium, Blood 8.5 mg/dL (8.5-10.1); Creatinine, Blood 1.48 mg/dL (0.60-1.20); Potassium, Blood 4.2 mmol/L (3.5-5.5)
[2021-10-17 06:03] LABS: BAND PERCENT MAN 14 % (0-8); BASOPHILS PERCENT MAN 0 % (0-2); EOSINOPHILS ABSOLUTE MAN 0.03 K/mm3 (0.00-0.68); EOSINOPHILS PERCENT MAN 2 % (0-6); LYMPHOCYTES ABSOLUTE MAN 0.51 K/mm3 (0.84-5.20); LYMPHOCYTES PERCENT MAN 26 % (21-46); METAMYELOCYTE ABSOLUTE MAN 0.03 K/mm3 (0.00-0.00); METAMYELOCYTE PERCENT MAN 2 % (0-0); MONOCYTES ABSOLUTE MAN 0.33 K/mm3 (0.16-1.47); MONOCYTES PERCENT MAN 17 % (4-13); MYELOCYTE ABSOLUTE MAN 0.01 K/mm3 (0.00-0.00); MYELOCYTE PERCENT MAN 1 % (0-0); NEUTROPHILS ABSOLUTE MAN 1.03 K/mm3 (1.96-9.15); SEG NEUTROPHILS PERCENT MAN 38 % (41-73); TOTAL CELLS COUNTED 100
--- NOTE | 2021-10-17 06:03 | NUR ---
SHIFT SUMMARY: SEE PREVIOUS NOTES. PT CONTINUES TO BE SEDATED WITH PROPOFOL AT 40MCG/KG/MIN AND FENTANYL AT 25MCG/HR TO MAINTAIN VENT COMPLIANCE. ATTEMPTED TO DECREASE PROPOFOL HOWEVER, PT WILL STACK BREATHS AND RR INCREASES TO 30'S , ALONG WITH INCREASED WORK OF BREATHING AND LOW TIDAL VOLUMES, SPO2 80'S. PRN ATIVAN GIVEN ONCE THIS SHIFT. PT DOES NOT HAVE COUGH/GAG REFELX. CORNEAL REFLEX INTACT. OVER THE LAST FEW HOURS PT HAS BEEN IN SINUS TACH WITH HR BETWEEN 100-110. LEVOPHED RESTARTED DUE TO SBP 70'S AND MAPS BELOW 65, BP VERY LABILE. TUBE FEED CONTINUES TO RUN AT 40ML/HR. RECTAL TUBE DRAINING TO GRAVITY 200ML OF LIQUID BROWN STOOL. ROCHA DRAINING TO GRAVITY, YELLOW/CLOUDY URINE WITH SEDIMENT. UNABLE TO TURN PT OFTEN THIS SHIFT HE IS NOT ABLE TO TOLERATE TURNS. WILL CONTINUE TO MONITOR PT UTNIL REPORT IS GIVEN TO ONCOMING SHIFT.
--- NOTE | 2021-10-17 07:37 | NUR ---
ASSUME CARE: I have assumed care of this patient.
--- NOTE | 2021-10-17 16:41 | NUR ---
Pt's mom Erna remains at bedside. I met with her at noon today after hearing last night was particularly rough for her. The staff was using jess lift in attempt to reposition pt, and he had an episode of tachycardia and hypoxia. Dr. Marcano had a conversation with pt's mom this am regarding his poor prognosis. Pt's mom is tearful, and states she is struggling with the situation, including being "left alone" and "not being Ronalds mom anymore. However, she also states she doesn't want him to suffer, and understands that his health has declined overall as his white blood cell count has dropped from 18 to 1. This afternoon, Erna made the decision to change pt's code status to DNR, and she agrees that if pt has any further decline, she would like to treat it with comfort medication. We did discuss what withdrawing care would look like, and she states she is considering that. She requests her extended family be allowed in "to say goodbye". As of now, several relatives have gathered at the bedside to provide emotional support for pt's mom. Palliative care will remain available.
--- NOTE | 2021-10-17 18:32 | NUR ---
Several more family members have arrived to see both pt and his mom Erna, and she states she is ready to withdraw care tonight. She appears calm, relaxed and states she feels sure in her heart that it's time. Her niece assures me that one or 2 family members will stay close by and will not let her drive herself home tonight. Dr. Marcano and Dr. Richter are both aware of her decision, and are supportive of it.
--- NOTE | 2021-10-17 19:21 | NUR ---
SHIFT SUMMARY: Code status changed to DNR today. Chapincito's mother has been discussing end of life today after an update from the provider. She called in several family members to "say goodbye". Palliative care called to assist with conversation surrounding comfort care. Patient advocate was updated on pt status and has been in to visit with his mother; There was some concern regarding mother's safety after pt passes. During discussion she told this RN, "I'd be lying if I said it didn't cross my mind, but I know I won't do it because I'm too chicken." This was in regard to suicide. supervisor asbestos textile was informed of staff concern and spiritual services has been requested to provide resources and support.
--- NOTE | 2021-10-17 19:36 | NUR ---
Review of pt medications and extubation with staff. Met with family applied comfort quilt and theraputic time. Family grieving and reminising expressions of grief and acceptance. Spoke with intesivist on airway plan and medication. chaplian called. Will follow up with family.
--- NOTE | 2021-10-17 21:01 | NUR ---
Upon recieving a call-back, I visit family. I provide prayer pre and post extubation. Family grieves appropriately. Pt's mother, Erna seems very fragile. I give a family member resources for her including numbers for the hospital Chaplians, crisis hotlines and times, days and location of [facility] grief support group. I provide therapeutic listening, grief support, gentle crisis counselor, pt life review and prayer. I spent more than 2 hours with family. They respond well to all interventions and show signs of being comforted.
--- NOTE | 2021-10-18 00:25 | NUR ---
UPDATE: ASSUMED CARE OF PT AT 1900. FAMILY MEMBERS AT BEDSIDE, ALONG WITH PALLIATIVE CARE. MOTHER MADE THE DECISION TO PLACE PT ON COMFORT CARE. AT APPROX 1999, PT MEDICATED PRIOR TO VENTILATOR D/C. TOD 2022. ALL LINES REMOVED AND ALL BELONGING RETURNED TO FAMILY.
== END 2021-10-17 20:23 | DRG 4 ==
LOC: ER 10:05 → ICUW 13:06
PROVIDERS: Emergency Medicine; Family Medicine; Internal Medicine; Internal Medicine Critical Care Medicine; Nurse Practitioner Acute Care; Pharmacist; Student in an Organized Health Care Education/Training Program; ADMIT Internal Medicine
PROC: 0BH17EZ Insertion of Endotracheal Airway into Trachea, Via Natural or Artificial Opening (ICD-10-PCS; principal; 2021-09-14)
PROC: 5A1955Z Respiratory Ventilation, Greater than 96 Consecutive Hours (ICD-10-PCS; 2021-09-14)
PROC: 8E0ZXY6 Isolation (ICD-10-PCS; 2021-09-14)
PROC: XW033E5 Introduction of Remdesivir Anti-infective into Peripheral Vein, Percutaneous Approach, New Technology Group 5 (ICD-10-PCS; 2021-09-14)
PROC: 3E0333Z Introduction of Anti-inflammatory into Peripheral Vein, Percutaneous Approach (ICD-10-PCS; 2021-09-14)
PROC: 3E033XZ Introduction of Vasopressor into Peripheral Vein, Percutaneous Approach (ICD-10-PCS; 2021-09-14)
PROC: 05H933Z Insertion of Infusion Device into Right Brachial Vein, Percutaneous Approach (ICD-10-PCS; 2021-09-14)
PROC: 3E03329 Introduction of Other Anti-infective into Peripheral Vein, Percutaneous Approach (ICD-10-PCS; 2021-09-14)
PROC: XW0DXM6 Introduction of Baricitinib into Mouth and Pharynx, External Approach, New Technology Group 6 (ICD-10-PCS; 2021-09-15)
PROC: 0B9G8ZX Drainage of Left Upper Lung Lobe, Via Natural or Artificial Opening Endoscopic, Diagnostic (ICD-10-PCS; 2021-10-02)
PROC: 0B113F4 Bypass Trachea to Cutaneous with Tracheostomy Device, Percutaneous Approach (ICD-10-PCS; 2021-10-07)
PROC: 0BC38ZZ Extirpation of Matter from Right Main Bronchus, Via Natural or Artificial Opening Endoscopic (ICD-10-PCS; 2021-10-11)
DX: A41.89 Other specified sepsis (principal); U07.1 COVID-19; J96.02 Acute respiratory failure with hypercapnia; J96.21 Acute and chronic respiratory failure with hypoxia; J12.82 Pneumonia due to coronavirus disease 2019; R65.21 Severe sepsis with septic shock; Z66 Do not resuscitate; Z51.5 Encounter for palliative care; J15.211 Pneumonia due to Methicillin susceptible Staphylococcus aureus; I50.33 Acute on chronic diastolic (congestive) heart failure; G92.8 Other toxic encephalopathy; E87.2 Acidosis; Z68.45 Body mass index [BMI] 70 or greater, adult; I13.0 Hypertensive heart and chronic kidney disease with heart failure and stage 1 through stage 4 chronic kidney disease, or unspecified chronic kidney disease; E66.2 Morbid (severe) obesity with alveolar hypoventilation; B37.49 Other urogenital candidiasis; D61.818 Other pancytopenia; E78.5 Hyperlipidemia, unspecified; Z78.1 Physical restraint status; N18.9 Chronic kidney disease, unspecified; E03.9 Hypothyroidism, unspecified; Q90.9 Down syndrome, unspecified; E11.65 Type 2 diabetes mellitus with hyperglycemia; Z28.310 Unvaccinated for COVID-19; L89.129 Pressure ulcer of left upper back, unspecified stage; E11.22 Type 2 diabetes mellitus with diabetic chronic kidney disease; D69.6 Thrombocytopenia, unspecified; E87.6 Hypokalemia; B96.5 Pseudomonas (aeruginosa) (mallei) (pseudomallei) as the cause of diseases classified elsewhere; L08.9 Local infection of the skin and subcutaneous tissue, unspecified; K59.00 Constipation, unspecified; I25.2 Old myocardial infarction; Z79.899 Other long term (current) drug therapy; Z90.89 Acquired absence of other organs; Z99.81 Dependence on supplemental oxygen; Z79.82 Long term (current) use of aspirin; Z79.52 Long term (current) use of systemic steroids
CPT/HCPCS: 0241U; 31500; 31720; 36415; 36569; 36600; 51702; 71045; 80048; 80053; 80069; 80202; 81001; 82330; 82565; 82803; 82947; 83605; 83735; 83880; 84100; 84132; 84145; 84478; 84484; 85014; 85018; 85025; 85049; 85520; 85610; 85730; 87040; 87070; 87075; 87076; 87077; 87086; 87147; 87185; 87186; 87205; 88108; 88312; 93005; 93010; 94002; 94003; 94640; 94660; 94664; 94760; 94762; 96365; 96375; 99285-25; A9270; C1751; C1769; C1894; C8929; C9113; C9399; J0248; J0330; J0456; J0690; J0692; J0696; J1100; J1450; J1644; J1650; J1815; J1940; J2060; J2370; J2543; J2704; J2765; J2920; J2997; J3010; J3370; J3480; J7030; J7040; J7050; J7060; J7120; P9046; Q9957